=== PATIENT | female | born 1930 | race Caucasian/White ===

== ENCOUNTER 2019-03-15 12:42 | Inpatient (IN) | payer MEDICARE ==
[2019-03-15 13:41] LABS: ABS Basophils 0.1 10^3/ul (0-0.2); ABS Lymphocytes 0.4 10^3/ul (1.0-4.8); ABS Monocytes 0.3 10^3/ul (0-0.8); ABS Neutrophils 13.9 10^3/ul (1.5-7.7); Hematocrit 37 % (35-47); Hemoglobin 12.3 g/dL (12.0-16.0); Lymphocyte % 2.6 %; Mean Corpuscular HGB Conc 33 g/dL (31-36); Mean Corpuscular Hemoglobin 29 pg (27-31); Mean Corpuscular Volume 88 fL (80-97); Mean Platelet Volume 7.4 fL (7.4-10.4); Platelet Count 557 10^3/uL (150-450); Red Blood Count 4.24 10^6 /uL (3.70-4.87); Red Cell Distribution Width 14 % (10-15); White Blood Count 14.7 10^3/uL (3.5-10.8)
[2019-03-15 14:02] LABS: Albumin 4.1 g/dL (3.2-5.2); Albumin/Globulin Ratio 1.3 (1-3); Calcium 9.2 mg/dL (8.6-10.3); EGFR African American 77.8 (>60); EGFR Non-African American 64.3 (>60); Globulin 3.1 g/dL (2-4); Potassium 3.4 mmol/L (3.5-5.0); Total Bilirubin 0.4 mg/dL (0.2-1.0); Total Protein 7.2 g/dL (6.4-8.9)
--- NOTE | 2019-03-15 15:40 | ED ---
Abdominal Pain/Female - HPI Summary HPI Summary: Patient is a 88 y/o F presenting to [facility] with complaints of abdominal pain that onset last night. Patient reports that she was also nauseous, dry heaving and was producing "foamy stuff" from her mouth. No actual emesis is noted. She states that she has been having hyperactive bowel sounds as well. Last meal was supper last night, she had no breakfast. She reports some slight pain is present still but no nausea at present. Edema is denied. No PSHx is noted. On triage, pain is rated 7/10. Home medications and allergies are reviewed. - History of Current Complaint Chief Complaint: EDAbdPain Stated Complaint: LOW ABD PAIN STOMACH PAIN PER PT Time Seen by Provider: 03/15/19 15:25 Hx Obtained From: Patient Onset/Duration: Lasting Hours, Still Present Timing: Hours Severity Initially: Severe Severity Currently: Mild Pain Intensity: 7 Pain Scale Used: 0-10 Numeric Associated Signs and Symptoms: Positive: Nausea, Other: - dry heaving and was producing "foamy stuff" from her mouth, hyperactive bowel sounds, no edema. Negative: Vomiting Allergies/Adverse Reactions: Allergies Allergy/AdvReac Type Severity Reaction Status Date / Time doxycycline Allergy Nausea And Verified 03/15/19 12:49 Vomiting Home Medications: Home Medications Aspirin EC TAB* [Ecotrin EC Low Dose 81 MG*] 81 mg PO DAILY 03/15/19 [History Confirmed 03/15/19] Atorvastatin* [Lipitor*] 20 mg PO DAILY 03/15/19 [History Confirmed 03/15/19] Losartan/HCTZ 100/25 (NF) [Hyzaar 100/25 (NF)] 1 tab PO DAILY 03/15/19 [History Confirmed 03/15/19] Multivitamins/Minerals TAB* [Theragran/minerals TAB*] 1 tab PO DAILY 03/15/19 [ History Confirmed 03/15/19] PMH/Surg Hx/FS Hx/Imm Hx Endocrine/Hematology History: Denies: Hx Diabetes Cardiovascular History: Denies: Hx Hypertension History: Denies: Hx Renal Disease Musculoskeletal History: Reports: Hx Osteoporosis Infectious Disease History: No Infectious Disease History: Denies: Traveled Outside the [place] in Last 30 Days - Family History Known Family History: Negative: Diabetes - Social History Alcohol Use: Daily Substance Use Type: Reports: None Smoking Status (MU): Never Smoked Tobacco Review of Systems ENT: Other - producing "foamy stuff" from her mouth Gastrointestinal: Other - dry heaving and hyperactive bowel sounds Positive: Abdominal Pain, Nausea. Negative: Vomiting Negative: Edema All Other Systems Reviewed And Are Negative: Yes Physical Exam - Summary Physical Exam Summary: VITAL SIGNS: Reviewed. GENERAL: Patient is a well-developed and nourished female who is lying comfortable in the stretcher. Patient is not in any acute respiratory distress. HEAD AND FACE: No signs of trauma. No ecchymosis, hematomas or skull depressions. No sinus tenderness. EYES: PERRLA, EOMI x 2, No injected conjunctiva, no nystagmus. EARS: Hearing grossly intact. Ear canals and tympanic membranes are within normal limits. MOUTH: Oropharynx within normal limits. NECK: Supple, trachea is midline, no adenopathy, no JVD, no carotid bruit, no c- spine tenderness, neck with full ROM. CHEST: Symmetric, no tenderness at palpation. LUNGS: Clear to auscultation bilaterally. No wheezing or crackles. CVS: Regular rate and rhythm, S1 and S2 present, no murmurs or gallops appreciated. ABDOMEN: Soft, non-tender. Abdominal distention noted. No rebound, no guarding, and no masses palpated. Bowel sounds are hyperactive. EXTREMITIES: FROM in all major joints, no edema, no cyanosis or clubbing. NEURO: Alert and oriented x 3. No acute neurological deficits. Speech is normal and follows commands. SKIN: Dry and warm. Triage Information Reviewed: Yes Vital Signs On Initial Exam: Initial Vitals Temp Pulse Resp BP Pulse Ox 96.8 F 82 18 149/80 99 03/15/19 12:48 03/15/19 12:48 03/15/19 12:48 03/15/19 12:48 03/15/19 12:48 Vital Signs Reviewed: Yes Procedures - Sedation Patient Received Moderate/Deep Sedation with Procedure: No Diagnostics - Vital Signs Vital Signs Temp Pulse Resp BP Pulse Ox 03/15/19 14:36 98.6 F 101 17 130/67 97 03/15/19 12:48 96.8 F 82 18 149/80 99 - Laboratory Lab Results: Lab Results 03/15/19 03/15/19 03/15/19 Range/Units 13:30 13:30 13:30 WBC 14.7 H (3.5-10.8) 10^3/uL RBC 4.24 (3.70-4.87) 10^6 /uL Hgb 12.3 (12.0-16.0) g/dL Hct 37 (35-47) % MCV 88 (80-97) fL MCH 29 (27-31) pg MCHC 33 (31-36) g/dL RDW 14 (10-15) % Plt Count 557 H (150-450) 10^3/uL MPV 7.4 (7.4-10.4) fL Neut % (Auto) 94.7 % Lymph % (Auto) 2.6 % [place] % (Auto) 2.3 % Eos % (Auto) 0.0 % Baso % (Auto) 0.4 % Absolute Neuts (auto) 13.9 H (1.5-7.7) 10^3/ul Absolute Lymphs (auto) 0.4 L (1.0-4.8) 10^3/ul Absolute Monos (auto) 0.3 (0-0.8) 10^3/ul Absolute Eos (auto) 0.0 (0-0.6) 10^3/ul Absolute Basos (auto) 0.1 (0-0.2) 10^3/ul Absolute Nucleated RBC 0.0 10^3/ul Nucleated RBC % 0.0 Sodium 137 (135-145) mmol/L Potassium 3.4 L (3.5-5.0) mmol/L Chloride 100 L (101-111) mmol/L Carbon Dioxide 28 (22-32) mmol/L Anion Gap 9 (2-11) mmol/L BUN 21 (6-24) mg/dL Creatinine 0.84 (0.51-0.95) mg/dL Est GFR ( Amer) 77.8 (>60) Est GFR (Non-Af Amer) 64.3 (>60) BUN/Creatinine Ratio 25.0 H (8-20) Glucose 177 H (70-100) mg/dL Lactic Acid 1.2 (0.5-2.0) mmol/L Calcium 9.2 (8.6-10.3) mg/dL Total Bilirubin 0.40 (0.2-1.0) mg/dL AST 15 (13-39) U/L ALT 10 (7-52) U/L Alkaline Phosphatase 64 (34-104) U/L C-Reactive Protein 36.00 H (<8.01) mg/L Total Protein 7.2 (6.4-8.9) g/dL Albumin 4.1 (3.2-5.2) g/dL Globulin 3.1 (2-4) g/dL Albumin/Globulin Ratio 1.3 (1-3) Lipase 25 (11.0-82.0) U/L Result Diagrams: 03/17/19 06:24 03/17/19 06:24 Lab Statement: Any lab studies that have been ordered have been reviewed, and results considered in the medical decision making process. - Radiology abdomen x-ray Radiology Interpretation Completed By: Radiologist Summary of Radiographic Findings: ABDOMINAL X-RAY IMPRESSION: DIFFUSE GASEOUS DISTENTION AND DILATATION OF THE COLON. THE DIFFERENTIAL INCLUDE COLONIC. PSEUDOOBSTRUCTION VERSUS LOW COLONIC OBSTRUCTION. RECOMMEND CONSIDERATION OF CORRELATION. WITH CROSS-SECTIONAL IMAGING OF THE ABDOMEN. THIS REPORT WAS REVIEWED BY DR. CARMONA. - CT abd/pel ct CT Interpretation Completed By: Radiologist Summary of CT Findings: IMPRESSION: 1. Proximally the colon is dilated up to 8 cm and exhibits air-fluid levels. There appears. to be an ill-defined stenosis at the junction of the sigmoid colon and rectum but this is. poorly defined in the absence of oral contrast. The differential diagnosis includes. diverticulitis or possibly a malignant obstruction. 2. Rectosigmoid diverticulosis separate from the stenotic area described above. 3. Subcentimeter hypoattenuating foci in the liver that are unchanged when compared to the. February 24, 2019 CT examination. In the presence of a possible colonic malignancy, these. lesions should be regarded with suspicion. Further characterization on a nonemergent basis. could be made with ultrasound. 4. Calcified vasculopathy of the aortoiliac arteries. Please correlate to signs or. symptoms of pelvic and/or lower extremity arterial insufficiency. 5. Additional chronic and degenerative changes described in the body the report unlikely. to BE related to the patient's current clinical presentation. THIS REPORT WAS REVIEWED BY DR. CARMONA. Re-Evaluation - Re-Evaluation First Eval Re-Evaluation Time: 15:35 Comment: Patient reports that she had an ABD/PEL CT last week. X-ray to be obtained. Second Eval Re-Evaluation Time: 19:01 Comment: Results of imaging and tests were discussed with patient, she is agreeable to admission. Abdominal Pain Fem Course/Dx - Course Course Of Treatment: Patient is a 88 y/o F presenting to [facility] with complaints of abdominal pain that onset last night. Patient reports that she was also nauseous, dry heaving and was producing "foamy stuff" from her mouth. No actual emesis is noted. Last meal was supper last night, no breakfast. No significant pain at present is noted. She states that she has been having hyperactive bowel sounds. She reports some slight pain is present still but no nausea at present. No PSHx is noted. No edema is noted. Blood work without any significant abnormality, except for WBCs of 14.7, platelet count of 557, potassium level of 3.4, chloride 100, glucose 177, CRP of 36, and. Urinalysis is negative for UTI. Patient had a CT of the abdomen and pelvis: 02/24/19 which shows diverticulosis, fatty infiltration of the liver, atherosclerosis, large amount of stool throughout the colon. No acute pathology or the visualized abdomen or pelvis. Abdominal X ray IMPRESSION: DIFFUSE GASEOUS DISTENTION AND DILATATION OF THE COLON. THE DIFFERENTIAL INCLUDE COLONIC. PSEUDO OBSTRUCTION VERSUS LOW COLONIC OBSTRUCTION. RECOMMEND CONSIDERATION OF CORRELATION. WITH CROSS- SECTIONAL IMAGING OF THE ABDOMEN. The x-ray findings indicated the need for a CT of the abdomen and pelvis with by mouth and IV contrast. The patient refuses by mouth contrast. I offered the patient to get zofran for nausea vomiting however the patient refused. The CT was performed without by mouth contrast and the impression: 1. Proximally the colon is dilated up to 8 cm and exhibits air-fluid levels. There appears to be an ill-defined stenosis at the junction of the sigmoid colon and rectum but this is poorly defined in the absence of oral contrast. The differential diagnosis includes diverticulitis or possibly a malignant obstruction. 2. Rectosigmoid diverticulosis separate from the stenotic area described above. 3. Subcentimeter hypoattenuating foci in the liver that are unchanged when compared to the February 24, 2019 CT examination. In the presence of a possible colonic malignancy, these lesions should be regarded with suspicion. Further characterization on a nonemergent basis could be made with ultrasound. 4. Calcific vasculopathy of the aortoiliac arteries. Please correlate to signs or. symptoms of pelvic and/or lower extremity arterial insufficiency. 5. Additional chronic and degenerative changes described in the body the report unlikely to BE related to the patient' s current clinical presentation. At this time I discussed the findings of the CT which includes diverticulitis versus a malignancy with patient. Patient agrees to be admitted to the hospitalist. I gave the patient ciprofloxacin and Flagyl. Patient was offered Zofran and this time she accepted. The patient was given IV fluids. I discussed my physical exam and findings with Dr. Arguello from the hospital services who accepted the patient for admission. - Diagnoses Provider Diagnoses: Diverticulitis, Abnormal CT of the abdomen, Nausea & vomiting - Provider Notifications Discussed Care Of Patient With: Mayra Arguello Time Discussed With Above Provider: 18:48 Instructed by Provider To: Other - Patient's case was discussed with Dr. Arguello , Dr. Arguello accepts for admission. Discharge ED - Sign-Out/Discharge Documenting (check all that apply): Patient Departure - admit - Discharge Plan Condition: Stable Disposition: ADMITTED TO [facility] - Billing Disposition and Condition Condition: STABLE Disposition: Admitted to [facility] - Attestation Statements Document Initiated by Carey: Yes Documenting Scribe: JEAN CARLOS FERNANDEZ Provider For Whom Carey is Documenting (Include Credential): JUANA CARMONA MD Scribe Attestation: IJEAN CARLOS, scribed for JUANA CARMONA MD on 03/17/19 at 1353. Scribe Documentation Reviewed: Yes Provider Attestation: The documentation as recorded by the JEAN CARLOS sotelo accurately reflects the service I personally performed and the decisions made by , JUANA CARMONA MD Status of Scribe Document: Viewed
[2019-03-15 16:13] LABS: Urine Appearance Cloudy; Urine Bilirubin Negative (Negative); Urine Blood Negative (Negative); Urine Color Yellow; Urine Glucose Negative (Negative); Urine Ketones 1+ (Negative); Urine Nitrite Negative (Negative); Urine Protein Negative (Negative); Urine Specific Gravity 1.026 (1.010-1.030); Urine Urobilinogen Negative (Negative)
[2019-03-15] MEDS ORDERED: Iohexol 300* (CONTRAST) 10 ML SDV IV ONE (17:01)
[2019-03-15] MEDS ORDERED: metroNIDAZOLE TAB* 250 MG PO ONE (18:44)
[2019-03-15] MEDS ORDERED: Ciprofloxacin 400MG IVPREMIX(* 400 MG/200 ML BAG IVPB ONE (18:44)
[2019-03-15] MEDS ORDERED: Ondansetron INJ* 2 MG/ML VIAL IV ONE ×2 (18:45→22:58)
[2019-03-15] MEDS ORDERED: NS 0.9% 1000 ML** 1,000 ML IV ONE (19:05)
[2019-03-15] MEDS ORDERED: hydrALAZINE IV* 20 MG/ML VIAL IV SLOW PU PRN (19:22)
[2019-03-15] MEDS ORDERED: metroNIDAZOLE IV 500 MG/100ML* 500 MG/100 ML BAG IVPB ONE (19:43)
[2019-03-15] MEDS ORDERED: Enoxaparin(*) 40 MG/0.4 ML SYR SUBCUT SCH (20:00)
[2019-03-15] MEDS: Ondansetron INJ* 2 MG/ML VIAL IV PRN (21:11)
[2019-03-15] MEDS: NS 0.9% 1000 ML** 1,000 ML IV SCH (21:51)
[2019-03-15] MEDS: KCL 20 MEQ/100 ML IVPREMIX* 20 MEQ/100 ML BAG IV SCH (21:51)
--- NOTE | 2019-03-15 22:02 | HP ---
CC: Claudette Wright MD; Dr. Mahoney; Dr. Arzola; Dr. So * ADMISSION HISTORY AND PHYSICAL: DATE OF ADMISSION: 03/15/19 PRIMARY CARE PROVIDER: Claudette Wright MD ATTENDING FOR THIS ADMISSION: Mayra Arguello MD * (DICTATED BY ANGE PIERSON NP) CHIEF COMPLAINT: Abdominal pain and nausea. HISTORY OF PRESENT ILLNESS: This is a very pleasant 88-year-old female patient with minimal medical history including only hypertension and hyperlipidemia who presented to the emergency department today with complaints of abdominal pain. She states that she had had abdominal pain approximately less than a month ago for which she went to her primary care provider . She was sent for an outpatient CT scan which showed some constipation and some other nonspecific findings. She stated that shortly after having imaging, she had what she thought was an upper respiratory infection or virus. She had a sore throat and a cough and did not feel that her stomach issues were as pronounced and she did not seek any additional attention for her abdominal pain. However, over the last 24 hours, the patient states that her abdominal pain started again, increased overnight, was accompanied by nausea, but no vomiting, and profound anorexia. She said she felt that she was having some dry heaves but denied any fever or chills. She was able to tolerate a meal last night but was not able to eat breakfast today and she did have some diffuse abdominal pain. She came to the emergency department for evaluation as she felt that her symptoms were getting worse and was becoming concerned. In the emergency department, she did have an initial abdominal x-ray. The x-ray of the abdomen showed some distention and dilatation of colon. Differential diagnosis included colonic pseudoobstruction versus a low colonic obstruction and recommended a CT scan. A CT scan of the abdomen and pelvis was difficult because the patient was having trouble tolerating oral contrast because of her nausea, so it was a suboptimal study. The findings, however, as interpreted by Dr. Mahoney, showed proximal colon was dilated up to 8 cm and exhibited air-fluid levels. There was an ill-defined stenosis at the junction of the sigmoid colon and rectum which was poorly defined in the absence of oral contrast. Differential includes diverticulitis but possibly malignant obstruction. There was also a subcentimeter hypoattenuating foci in the liver that was unchanged compared to the 02/24 study; however, with the presence of the possible colonic malignancy lesions should be recorded with suspicion. Given the findings and the patient' s inability to have any p.o. intake, the hospitalists were requested for admitting the patient. PAST MEDICAL HISTORY: As stated above, only noted for hypertension and hyperlipidemia. PAST SURGICAL HISTORY: None. MEDICATIONS: 1. Multivitamin with minerals 1 tab p.o. daily. 2. Hyzaar 100/25 one tablet p.o. daily. 3. Aspirin 81 mg daily. 4. Lipitor 20 mg daily. ALLERGIES: The patient has allergy to DOXYCYCLINE. FAMILY HISTORY: The patient's mother had esophageal cancer, but also she notes that her mother had history of smoking. SOCIAL HISTORY: The patient does not smoke. She drinks a glass of wine with dinner. Her healthcare proxy is her daughter, Melva, who is present at the bedside. Her telephone number is [phone]. REVIEW OF SYSTEMS: A 10-point review of systems is otherwise negative except as noted in the HPI above. PHYSICAL EXAMINATION GENERAL: The patient is awake and alert and in no acute distress. VITAL SIGNS: Blood pressure 134/69, heart rate 90, respiratory rate 18, O2 saturation 96% on room air with a temperature of 98.6. HEENT: The patient is atraumatic, normocephalic. PERRLA, nonicteric sclerae. Oral mucosa is moist. Tongue is midline. NECK: Supple, nontender. No JVD noted. No thyromegaly appreciated. LUNGS: Clear bilaterally to auscultation with no wheezing, rhonchi, or rales. CARDIOVASCULAR: S1, S2 present. No murmurs, gallops, or rubs noted. Rate and rhythm are regular. ABDOMEN: Soft, nontender, nondistended. She has hypoactive bowel sounds noted. She is passing flatus. There is no hepatosplenomegaly appreciated. : Deferred. MUSCULOSKELETAL: There is no clubbing, no cyanosis, and no edema. She has +2 distal pulses palpable. Full range of motion. Gross motor and sensation are intact. NEUROLOGIC: She is grossly intact. Alert and oriented x3 with no focal deficits. PSYCHIATRIC: She is cooperative, pleasant, and appropriate. DIAGNOSTIC STUDIES/LAB DATA: WBCs 14.7, RBCs 4.24, hemoglobin 12.3, hematocrit 37, platelets 557. Sodium 137, potassium 3.4, chloride 100, CO2 28. BUN 21, creatinine 0.84, GFR 64.3, glucose 177, lactic acid 0.7, calcium 9.2. Bilirubin 0.40, AST 15, ALT 10, alk phos 64. CRP 36. Total protein 7.2, albumin 4.1, globulin 3.1, lipase 25. Urinalysis was negative for any acute infective process. Imaging: CAT scan of the abdomen as described in the body of this document above. IMPRESSION: Ms. Osorio is an 88-year-old female with minimal medical history , who presents to the emergency department today with abdominal pain, nausea, and leukocytosis, who is noted to have an abdominal obstruction versus pseudoobstruction versus possible infectious etiology, but also may potentially have a mass. Diagnoses: 1. Abdominal pain and nausea. The patient as noted above has had CT scan of the abdomen. I did discuss with the patient because she has not had oral contrast, we cannot fully elucidate the etiology of her pain and obstructive process. We did discuss that there is potential for a mass, but that we would discuss with GI who has already been consulted. Dr. Arzola is aware of the patient and actually Dr. So will be seeing the patient tomorrow morning. There is potential that she will have a flex sig tomorrow versus additional imaging. We will defer to GI on their recommendations. For now, the patient will have IV fluids. She has already been given Cipro 400 mg and Flagyl 500 mg. These will be continued. This has been confirmed with GI. Flagyl will be continued q.8 hours and Cipro q.24 hours. N.p.o. status will be maintained. For her nausea, Zofran q.4 hours will be provided as needed. 2. Hypokalemia. Her potassium is slightly suppressed. She has already received repletion. We will check labs in the morning. 3. Thrombocytosis. Her platelets are slightly elevated at 557. However, it does appear that her platelets have been elevated on 02/23/19 and 02/24/19 as well. We will continue to monitor her daily labs. It is unclear the etiology of her elevated platelets. However, given the constellation of findings and concern for malignancy, we will continue to monitor her CBC closely. 4. History of hypertension. The patient's blood pressure is currently stable. Given that she is n.p.o. right now, I have started her on hydralazine as needed with parameters for administration. Currently, her blood pressure is within normal range. 5. History of hyperlipidemia. We are holding her p.o. meds. Her statin will be restarted when she is no longer n.p.o. 6. For her DVT prophylaxis, the patient will be started on Lovenox 40 mg q.24 hours. She is high risk given her age. 7. Diet: N.p.o. as stated above. 8. Code status: We did have an extensive discussion about her code status. She is full code. She does not have a MOLST; however, she does have an advance directive. She wishes to retrieve her advance directive from home before updating the MOLST or making any other changes. For now, the patient remains full code until she receives her paperwork from home. Her daughter was present for discussion regarding her code status. She does wish to have all interventions available to her in the event of cardiac arrest. The rest of the patient's course will be determined by further diagnostics, laboratories, and any other input from other providers as warranted during this admission. TIME SPENT: Sixty-five minutes on admission planning, 50% of which was spent face- to-face with the patient and her daughter. This plan of care has been discussed with Dr. Arguello, the attending on this case and she is in agreement with the plan of care. ANGE PIERSON NP [id number]/[facility] #: [id number] ELIANA
[2019-03-15] MEDS: Ondansetron INJ* 2 MG/ML VIAL ONE ×2 (23:06→23:51)
[2019-03-16] MEDS: KCL 20 MEQ/100 ML IVPREMIX* 20 MEQ/100 ML BAG IV SCH (00:02)
[2019-03-16] MEDS: metroNIDAZOLE IV 500 MG/100ML* 500 MG/100 ML BAG IVPB SCH ×3 (03:40→22:13)
[2019-03-16 05:49] LABS: ABS Basophils 0.1 10^3/ul (0-0.2); ABS Lymphocytes 0.9 10^3/ul (1.0-4.8); ABS Neutrophils 10.2 10^3/ul (1.5-7.7); Eosinophil % 0.2 %; Hematocrit 32 % (35-47); Hemoglobin 10.7 g/dL (12.0-16.0); Lymphocyte % 7.8 %; Mean Corpuscular HGB Conc 34 g/dL (31-36); Mean Corpuscular Hemoglobin 30 pg (27-31); Mean Corpuscular Volume 88 fL (80-97); Mean Platelet Volume 7.5 fL (7.4-10.4); Platelet Count 477 10^3/uL (150-450); Red Cell Distribution Width 14 % (10-15); White Blood Count 12.2 10^3/uL (3.5-10.8)
[2019-03-16 06:12] LABS: BUN/Creatinine Ratio 24.7 (8-20); Calcium 8.2 mg/dL (8.6-10.3); EGFR Non-African American 71.1 (>60); Potassium 3.6 mmol/L (3.5-5.0)
[2019-03-16] MEDS: Ondansetron INJ* 2 MG/ML VIAL IV PRN ×2 (07:03→22:51)
[2019-03-16] MEDS: Ciprofloxacin 400MG IVPREMIX(* 400 MG/200 ML BAG IVPB SCH ×2 (07:03→20:14)
[2019-03-16] MEDS ORDERED: Influenza VAC *QUAD* 2019-20* 0.5 ML SYRINGE IM ONE (09:00)
[2019-03-16] MEDS ORDERED: Midazolam* 1 MG/ML 10 ML VIAL (10 MG) ONE (10:38)
[2019-03-16] MEDS ORDERED: fentaNYL* 50 MCG/ML 2 ML VIAL (100 MCG VIAL) ONE (10:38)
--- NOTE | 2019-03-16 12:59 | PN ---
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 Leoncio So DO 03/16/19
--- NOTE | 2019-03-16 15:29 | PN ---
Subjective Date of Service: 03/16/19 Interval History: Patient is feeling well except for some RLQ pain which is consistent from before sigmoidoscopy. Patient still feels bloated. Patient denies dizziness, CP , SOB, dysuria, or other pain. Family History: Unchanged from Admission Social History: Unchanged from Admission Past Medical History: Unchanged from Admission Objective Active Medications: Enoxaparin Sodium (Lovenox(*)) 40 mg SUBCUT Q24H BRUCE Last Admin: 03/15/19 21:55 Dose: 40 mg Hydralazine HCl (Apresoline Iv*) 5 mg IV SLOW PU Q6H PRN PRN Reason: SBP >165 DBP >90 Metronidazole/Sodium Chloride (Flagyl 500 Mg Ivpb*) 500 mg in 100 mls @ 100 mls /hr IVPB Q8H BRUCE Last Admin: 03/16/19 13:06 Dose: 100 mls/hr Ciprofloxacin/Dextrose (Cipro 400 Mg Ivpremix(*)) 400 mg in 200 mls @ 200 mls/ hr IVPB Q12H BRUCE; Protocol Last Admin: 03/16/19 07:03 Dose: 200 mls/hr Sodium Chloride (Ns 0.9% 1000 Ml) 1,000 mls @ 75 mls/hr IV PER RATE BRUCE Last Admin: 03/15/19 21:51 Dose: 75 mls/hr Ondansetron HCl (Zofran Inj*) 4 mg IV Q4H PRN PRN Reason: NAUSEA/VOMITING Last Admin: 03/16/19 07:03 Dose: 4 mg Vital Signs - 8 hr 03/16/19 07:26 Temperature 98.3 F Pulse Rate 83 Respiratory 18 Rate Blood Pressure 123/60 (mmHg) O2 Sat by Pulse 97 Oximetry Oxygen Devices in Use Now: None Appearance: Patient is an 88yo female who appears younger than stated age. Eyes: No Scleral Icterus, PERRLA Ears/Nose/Mouth/Throat: NL Teeth, Lips, Gums, Clear Oropharnyx, Mucous Membranes Moist Neck: NL Appearance and Movements; NL JVP, Trachea Midline Respiratory: Symmetrical Chest Expansion and Respiratory Effort, Clear to Auscultation Cardiovascular: NL Sounds; No Murmurs; No JVD, RRR, No Edema Abdominal: No Hepatosplenomegaly, - - Distention, hypertympanic to percussion. Lymphatic: No Cervical Adenopathy Extremities: No Edema, No Clubbing, Cyanosis Skin: No Rash or Ulcers, No Nodules or Sclerosis Neurological: Alert and Oriented x 3, NL Sensation, NL Muscle Strength and Tone , - - CN II-XII intact. Result Diagrams: 03/16/19 05:13 03/16/19 05:13 Additional Lab and Data: Lab Results 03/15/19 03/15/19 03/15/19 Range/Units 13:30 13:30 13:30 WBC 14.7 H (3.5-10.8) 10^3/uL RBC 4.24 (3.70-4.87) 10^6 /uL Hgb 12.3 (12.0-16.0) g/dL Hct 37 (35-47) % MCV 88 (80-97) fL MCH 29 (27-31) pg MCHC 33 (31-36) g/dL RDW 14 (10-15) % Plt Count 557 H (150-450) 10^3/uL MPV 7.4 (7.4-10.4) fL Neut % (Auto) 94.7 % Lymph % (Auto) 2.6 % [place] % (Auto) 2.3 % Eos % (Auto) 0.0 % Baso % (Auto) 0.4 % Absolute Neuts (auto) 13.9 H (1.5-7.7) 10^3/ul Absolute Lymphs (auto) 0.4 L (1.0-4.8) 10^3/ul Absolute Monos (auto) 0.3 (0-0.8) 10^3/ul Absolute Eos (auto) 0.0 (0-0.6) 10^3/ul Absolute Basos (auto) 0.1 (0-0.2) 10^3/ul Absolute Nucleated RBC 0.0 10^3/ul Nucleated RBC % 0.0 Sodium 137 (135-145) mmol/L Potassium 3.4 L (3.5-5.0) mmol/L Chloride 100 L (101-111) mmol/L Carbon Dioxide 28 (22-32) mmol/L Anion Gap 9 (2-11) mmol/L BUN 21 (6-24) mg/dL Creatinine 0.84 (0.51-0.95) mg/dL Est GFR ( Amer) 77.8 (>60) Est GFR (Non-Af Amer) 64.3 (>60) BUN/Creatinine Ratio 25.0 H (8-20) Glucose 177 H (70-100) mg/dL Lactic Acid 1.2 (0.5-2.0) mmol/L Calcium 9.2 (8.6-10.3) mg/dL Total Bilirubin 0.40 (0.2-1.0) mg/dL AST 15 (13-39) U/L ALT 10 (7-52) U/L Alkaline Phosphatase 64 (34-104) U/L C-Reactive Protein 36.00 H (<8.01) mg/L Total Protein 7.2 (6.4-8.9) g/dL Albumin 4.1 (3.2-5.2) g/dL Globulin 3.1 (2-4) g/dL Albumin/Globulin Ratio 1.3 (1-3) Lipase 25 (11.0-82.0) U/L Assess/Plan/Problems-Billing Assessment: Patient is an 88yo female with a PMH for HTN, HLD, here with large bowel obstruction with mass and high likelihood of malignancy who is being evaluated by surgery. - Patient Problems (1) Intestinal mass Current Visit: Yes Status: Acute Code(s): K63.89 - OTHER SPECIFIED DISEASES OF INTESTINE SNOMED Code(s): 20961235 Comment: - Large bowel mass, fully obstructing on sigmoidoscopy. - High concern for malignancy - Questionable liver mets, pending pathology of primary mass. - Appreciate GI input and Surgery input - Oncology consult pending pathology. - Full liquid diet, no obstipation, will need surgery with likely colostomy. - Continue antibiotics - RCRI is 0, indicating a 3.9% risk of MACE at 3 Months. Patient has excellent functional status, being able to walk up a flight of stairs without getting short of breath. Patient has >4 Mets and is medically optimized at this time for bowel resection if this ends up being the treatment plan. (2) HTN (hypertension) Current Visit: Yes Status: Acute Code(s): I10 - ESSENTIAL (PRIMARY) HYPERTENSION SNOMED Code(s): 16020237 Comment: - Hold Losartan/HCTZ - Normotensive - Hydralazine PRN. (3) HLD (hyperlipidemia) Current Visit: Yes Status: Acute Code(s): E78.5 - HYPERLIPIDEMIA, UNSPECIFIED SNOMED Code(s): 41639943 Comment: - Hold lipitor at this time. (4) DVT prophylaxis Current Visit: Yes Status: Acute Code(s): Z29.9 - ENCOUNTER FOR PROPHYLACTIC MEASURES, UNSPECIFIED SNOMED Code(s): 893364837 Comment: - Hold lovenox at this time, SCDs (5) Full code status Current Visit: Yes Status: Acute Code(s): Z78.9 - OTHER SPECIFIED HEALTH STATUS SNOMED Code(s): 037494484 Status and Disposition: Inpatient for evaluation of options for intestinal mass.
--- NOTE | 2019-03-16 16:31 | CONS ---
CC: Dr. Claudette Wright * CONSULTATION REPORT: DATE OF CONSULT: 03/16/19 REQUESTING PROVIDER: TAMMY Sanchez REASON FOR CONSULT: Abdominal pain, abnormal CT. HISTORY OF PRESENT ILLNESS: This is a very pleasant 88-year-old female with a past medical history of hypertension, hyperlipidemia, who presented with a few weeks' worth of abdominal pain. The pain has been in the right upper quadrant and left lower quadrant, fleeting in nature, worse when not moving bowels, better when bowels are moved. She has noticed a change in her bowel caliber over the last 2 to 3 weeks with much thinner and pencil-like stools. She has also noted an unintentional weight loss of about 10 pounds over the last month. Her appetite has been on the poor side and has had some nausea, but no emesis. She denies any gross black or blood in the stool. She had an outpatient CT scan, with the report not available to me, a few weeks ago, which apparently showed some constipation. She then presented to the emergency room again with worsening of abdominal pain on 03/15/19 and was found to have a possible colonic obstruction at the rectosigmoid area, concern for mass versus diverticular versus other. The proximal colon was dilated up to 8 cm with air- fluid levels. She has never had a colonoscopy in the past. She has never had an upper endoscopy. In addition, on the CT scan, there were a few subcentimeter hypoattenuating foci in the liver. The remainder of the 14-point review of systems is grossly negative. PAST MEDICAL HISTORY: Hypertension, hyperlipidemia. PAST SURGICAL HISTORY: None. HOME MEDICATIONS: Include: 1. Multivitamin. 2. Hyzaar. 3. Aspirin. 4. Lipitor. ALLERGIES: Include DOXYCYCLINE. FAMILY HISTORY: No family history of colorectal cancer, but her mom had esophageal cancer. SOCIAL HISTORY: A glass of wine with dinner. No tobacco. Healthcare proxy is daughter, Melva. REVIEW OF SYSTEMS: Remainder of the 14-point review of systems is grossly negative. PHYSICAL EXAM: Vital Signs: Blood pressure 123/60, pulse 83, respiratory rate 18, temperature 98.3, she is 97% on room air. In general, alert and oriented x3. HEENT: Atraumatic, normocephalic. Pupils equal, round, reactive to light. Extraocular movements are intact. Conjunctivae are pink. Sclerae are anicteric. Cardiovascular: Regular rate and rhythm. S1, S2. Respiratory: Clear to auscultation bilaterally. Abdomen: Soft, distended. Bowel sounds positive. Mild tenderness to palpation in the right and left lower quadrants. No guarding or rebound. Extremities: No clubbing, no cyanosis, no edema. DIAGNOSTIC STUDIES/LAB DATA: Hemoglobin 10.7, WBC count 12.2, platelet count 477. Sodium 138, potassium 3.6, chloride 107, BUN is 19, creatinine 0.77, glucose 115, calcium 8.2. CRP is 36. AST is 15, ALT is 10, alkaline phosphatase is 64. She had a CT of the abdomen and pelvis on 03/15/19. This revealed: 1. Dilated colon in the proximal portion up to 8 cm with the transition point appeared to be at the junction of the sigmoid colon and rectum. 2. Rectosigmoid diverticulosis and multiple subcentimeter hypoattenuating foci in the liver. ASSESSMENT AND PLAN: This is an 88-year-old female with possible colonic obstruction. 1. Colonic obstruction. Appears to be a rectosigmoid transition. Without a fever and very mild leukocytosis, doubt this is diverticulitis causing the obstruction. She has never had a colonoscopy. I discussed the risks, benefits, and alternatives with the patient and she would like to proceed with flexible sigmoidoscopy to evaluate. If evidence of distinct inflammation and erythema, we would abort the procedure and continue on IV antibiotics. I feel that it is paramount to rule out a mass in the area causing this obstruction. She is agreeable to proceeding. 2. Anemia, normocytic. Recommend iron studies. 3. Weight loss, unintentional. Further workup pending. 4. Abnormal CT. Per #1. 5. Hypoattenuating lesions within the liver suspicious for potential metastasis. [id number]/[facility] #: [id number] MTDD
[2019-03-16] MEDS ORDERED: PEG 3000 GI LAVAGE* 1 GALLON PO ONE (17:28)
--- NOTE | 2019-03-16 18:51 | CONS ---
SURGICAL CONSULTATION REPORT: ADDENDUM: Obstructing sigmoid lesion at 17 cm from the anal verge. When I saw the patient, she is with children, resting comfortably on her hospital bed. She is complaining of mild right lower quadrant pain. No nausea. She is thirsty. She is somewhat hungry, but afraid to eat. She is not nauseous. She is passing flatus and had a very small bowel movement. PAST MEDICAL HISTORY: Hypertension, hypercholesterolemia. PAST SURGICAL HISTORY: No past surgical history. MEDICATIONS: List reviewed. ALLERGIES: She is allergic to DOXYCYCLINE. FAMILY HISTORY: Mother of esophageal cancer. Father of heart disease. SOCIAL HISTORY: She does not smoke. She lives alone. She takes care of herself. Nonsmoker. REVIEW OF SYSTEMS: No fevers or chills. No shortness of breath or chest pain. No cardiac disease. Abdominal pain and nausea as described. No history of GERD. No dysuria. The patient has never had a colonoscopy. No endocrine disorders. No bleeding or clotting disorders. PHYSICAL EXAM: She is afebrile. Vital signs are stable. She is alert and oriented x3, in no apparent distress. Head, Ears, Eyes, Nose, and Throat: Normocephalic, atraumatic. Sclerae anicteric. Mucous membranes are moist. Neck: No lymphadenopathy. Abdomen is soft, distended, tender only on deep palpation on the right side, tympanitic right side consistent with bowel distention, atympanic elsewhere, nontender with no hernias or masses. Rectal exam with bloody appearing stool. Guaiac is pending. No masses were palpated. DIAGNOSTIC STUDIES/LAB DATA: Labs show white count of 12.2, H and H 11/32. Chemistry panel reviewed. CA is 42, which is elevated, reference range is less than 5. CAT scan reviewed. Cecum appears close to 9 cm in size. There is no free fluid , no free air. There appeared to be an ill-defined stenosis of the rectosigmoid junction. This was a non-oral contrast study. The patient did not receive oral contrast or a bowel prep since presenting to the hospital. 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 The patient is passing flatus and is hemodynamically stable. Plan is for IV fluids, sips of GoLYTELY, and x-ray in the morning with reevaluation. The patient is on a tentative schedule tomorrow for a partial colectomy and colostomy with the anticipation of possibly postponing this and continuing with a potential bowel prep to avoid colostomy creation, although this is very likely at this point. I discussed this with the family. We went over the risks, benefits, and alternatives of surgical intervention, stating that this is presenting as a likely colon cancer with pathology pending and it still warrants surgical intervention regardless. I did not discuss the possibility of metastatic disease nor do I feel it matters at this time, but certainly as we are closer to operative intervention, this will be discussed. [id number]/[facility] #: [id number] ELIANA
--- NOTE | 2019-03-16 20:12 | CONS ---
CONTINUATION ADDENDUM NOW INCLUDED ON THIS EXAM CC: Dr. Claudette Wright; Dr. Leoncio So * SURGICAL CONSULTATION REPORT: DATE OF CONSULT: 03/16/19 HISTORY OF PRESENT ILLNESS: I was contacted by the gastroenterology group regarding Ms. Osorio, an 88-year-old female who was admitted to the hospital last night with complaints of abdominal pain, nausea, and vomiting and was noted to have a dilated colon and concern for a sigmoid lesion. She was admitted and underwent colonoscopy earlier today, where she had a notable obstructing lesion in the sigmoid colon approximately 17 cm from anal verge. CONTINUATION ADDENDUM: When I saw the patient, she is with children, resting comfortably on her hospital bed. She is complaining of mild right lower quadrant pain. No nausea. She is thirsty. She is somewhat hungry, but afraid to eat. She is not nauseous. She is passing flatus and had a very small bowel movement. PAST MEDICAL HISTORY: Hypertension, hypercholesterolemia. PAST SURGICAL HISTORY: No past surgical history. MEDICATIONS: List reviewed. ALLERGIES: She is allergic to DOXYCYCLINE. FAMILY HISTORY: Mother of esophageal cancer. Father of heart disease. SOCIAL HISTORY: She does not smoke. She lives alone. She takes care of herself. Nonsmoker. REVIEW OF SYSTEMS: No fevers or chills. No shortness of breath or chest pain. No cardiac disease. Abdominal pain and nausea as described. No history of GERD. No dysuria. The patient has never had a colonoscopy. No endocrine disorders. No bleeding or clotting disorders. PHYSICAL EXAM: She is afebrile. Vital signs are stable. She is alert and oriented x3, in no apparent distress. Head, Ears, Eyes, Nose, and Throat: Normocephalic, atraumatic. Sclerae anicteric. Mucous membranes are moist. Neck: No lymphadenopathy. Abdomen is soft, distended, tender only on deep palpation on the right side, tympanitic right side consistent with bowel distention, atympanic elsewhere, nontender with no hernias or masses. Rectal exam with bloody appearing stool. Guaiac is pending. No masses were palpated. DIAGNOSTIC STUDIES/LAB DATA: Labs show white count of 12.2, H and H 11/32. Chemistry panel reviewed. CA is 42, which is elevated, reference range is less than 5. CAT scan reviewed. Cecum appears close to 9 cm in size. There is no free fluid , no free air. There appeared to be an ill-defined stenosis of the rectosigmoid junction. This was a non-oral contrast study. The patient did not receive oral contrast or a bowel prep since presenting to the hospital. 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 The patient is passing flatus and is hemodynamically stable. Plan is for IV fluids, sips of GoLYTELY, and x-ray in the morning with reevaluation. The patient is on a tentative schedule tomorrow for a partial colectomy and colostomy with the anticipation of possibly postponing this and continuing with a potential bowel prep to avoid colostomy creation, although this is very likely at this point. I discussed this with the family. We went over the risks, benefits, and alternatives of surgical intervention, stating that this is presenting as a likely colon cancer with pathology pending and it still warrants surgical intervention regardless. I did not discuss the possibility of metastatic disease nor do I feel it matters at this time, but certainly as we are closer to operative intervention, this will be discussed. [id number]/[facility] #: [id number] A- [id number]/[facility] #: [id number] ELIANA
[2019-03-16] MEDS: NS 0.9% 1000 ML** 1,000 ML IV SCH (20:14)
--- NOTE | 2019-03-16 21:44 | PRO ---
CC: Dr. Claudette Wright * FLEXIBLE SIGMOIDOSCOPY REPORT: DATE OF PROCEDURE: 03/16/19 PRIMARY CARE PHYSICIAN: Claudette Wright MD INDICATION FOR PROCEDURE: Colonic obstruction, rule out mass. PROCEDURE PERFORMED: Flexible sigmoidoscopy to 17 cm. MEDICATION GIVEN: Include: 1. 5 mg IV midazolam. 2. 25 mcg IV fentanyl. DESCRIPTION OF PROCEDURE: After the flexible sigmoidoscopy procedure, including the risks, benefits, and alternatives, the risks not limited to perforation, surgery, missed lesions, and/or were explained to the patient , written informed consent was obtained, IV medication was given, and a rectal exam was performed. The rectal exam was unremarkable. The adult Olympus colonoscope was then inserted into the patient's rectum and advanced to 17 cm. At 17 cm, a near fully obstructing mass was encountered that was friable and irregular in shape. I was unable to pass the scope despite full water irrigation and multiple attempts. I took extensive biopsies of the lesion. On return to the rectum, direct views were normal. On retroflexion, the views were normal as well. The scope was then removed from the patient. She tolerated the procedure well. She returned to the recovery room in stable condition. The preparation was good of the area visualized. IMPRESSION: 1. Obstructing colon mass at 17 cm. 2. Good prep. RECOMMENDATIONS: Surgical consult. I suspect that this is likely carcinoma obstructing. We will order a CEA level. This raises greater suspicion to the multiple hypoattenuating lesions within the liver. [id number]/[facility] #: [id number] MTDD
[2019-03-17] MEDS: metroNIDAZOLE IV 500 MG/100ML* 500 MG/100 ML BAG IVPB SCH ×2 (05:52→12:07)
[2019-03-17] MEDS: NS 0.9% 1000 ML** 1,000 ML IV SCH ×2 (05:55→21:37)
[2019-03-17 06:41] LABS: ABS Basophils 0.1 10^3/ul (0-0.2); ABS Eosinophils 0.1 10^3/ul (0-0.6); ABS Monocytes 0.7 10^3/ul (0-0.8); ABS Neutrophils 6.4 10^3/ul (1.5-7.7); Eosinophil % 1.2 %; Hematocrit 32 % (35-47); Hemoglobin 10.6 g/dL (12.0-16.0); Lymphocyte % 12.1 %; Mean Corpuscular HGB Conc 34 g/dL (31-36); Mean Corpuscular Hemoglobin 30 pg (27-31); Mean Corpuscular Volume 89 fL (80-97); Mean Platelet Volume 7.2 fL (7.4-10.4); Platelet Count 438 10^3/uL (150-450); Red Blood Count 3.57 10^6 /uL (3.70-4.87); Red Cell Distribution Width 14 % (10-15); White Blood Count 8.3 10^3/uL (3.5-10.8)
[2019-03-17 07:01] LABS: BUN/Creatinine Ratio 15.8 (8-20); Calcium 8.2 mg/dL (8.6-10.3); EGFR African American 87.3 (>60); EGFR Non-African American 72.2 (>60); Magnesium 1.8 mg/dL (1.9-2.7)
[2019-03-17] MEDS: Ciprofloxacin 400MG IVPREMIX(* 400 MG/200 ML BAG IVPB SCH (08:16)
[2019-03-17] MEDS ORDERED: Magnesium Sulfate 1 GM IV* 1 GM/100 ML BAG IV ONE (10:10)
[2019-03-17] MEDS ORDERED: Buffered Lidocaine 1% SYRIN* 1 ML/SYRINGE INTRADERM ONE (13:15)
[2019-03-17] MEDS ORDERED: Midazolam* 1 MG/ML 2 ML VIAL (2 MG) ONE (13:22)
[2019-03-17] MEDS ORDERED: fentaNYL* 50 MCG/ML 2 ML VIAL (100 MCG VIAL) ONE (13:23)
[2019-03-17] MEDS ORDERED: Propofol* 10 MG/ML 20 ML BTL ONE (13:27)
[2019-03-17] MEDS ORDERED: Succinylcholine* 20 MG/ML 10 ML VIAL ONE (13:27)
[2019-03-17] MEDS ORDERED: Lidocaine 2% PF * 5 ML VIAL ONE (13:27)
--- NOTE | 2019-03-17 13:31 | PN ---
Subjective Date of Service: 03/17/19 Interval History: Patient is feeling better with regards to her abdominal pain. Patient denies any F/C, N/V, CP, SOB, dizziness, or other pain. Patient is passing a small amount of gas still. Discussed surgery with patient and family at length. Family History: Unchanged from Admission Social History: Unchanged from Admission Past Medical History: Unchanged from Admission Objective Active Medications: Hydralazine HCl (Apresoline Iv*) 5 mg IV SLOW PU Q6H PRN PRN Reason: SBP >165 DBP >90 Metronidazole/Sodium Chloride (Flagyl 500 Mg Ivpb*) 500 mg in 100 mls @ 100 mls /hr IVPB Q8H BRUCE Last Admin: 03/17/19 12:07 Dose: 100 mls/hr Ciprofloxacin/Dextrose (Cipro 400 Mg Ivpremix(*)) 400 mg in 200 mls @ 200 mls/ hr IVPB Q12H BRUCE; Protocol Last Admin: 03/17/19 08:16 Dose: 200 mls/hr Sodium Chloride (Ns 0.9% 1000 Ml) 1,000 mls @ 75 mls/hr IV PER RATE BRUCE Last Admin: 03/17/19 05:55 Dose: 75 mls/hr Lactated Ringer's (Lactated Ringers 1000 Ml Bag*) 1,000 mls @ 125 mls/hr IV PER RATE BRUCE Ondansetron HCl (Zofran Inj*) 4 mg IV Q4H PRN PRN Reason: NAUSEA/VOMITING Last Admin: 03/16/19 22:51 Dose: 4 mg Vital Signs - 8 hr 03/17/19 03/17/19 03/17/19 07:15 10:10 11:15 Temperature 98.2 F 97.4 F Pulse Rate 73 99 Respiratory 16 18 16 Rate Blood Pressure 105/51 148/76 (mmHg) O2 Sat by Pulse 97 100 Oximetry Oxygen Devices in Use Now: None Appearance: Patient is an 88yo female who appears stated age and is sitting in the bed in NAD. Eyes: No Scleral Icterus, PERRLA Ears/Nose/Mouth/Throat: NL Teeth, Lips, Gums, Clear Oropharnyx, Mucous Membranes Moist Neck: NL Appearance and Movements; NL JVP, Trachea Midline Respiratory: Symmetrical Chest Expansion and Respiratory Effort, Clear to Auscultation Cardiovascular: NL Sounds; No Murmurs; No JVD, RRR, No Edema Abdominal: No Hepatosplenomegaly, - - Distended, Non-Tender, Lymphatic: No Cervical Adenopathy Extremities: No Edema, No Clubbing, Cyanosis Skin: No Rash or Ulcers, No Nodules or Sclerosis Neurological: Alert and Oriented x 3, NL Sensation, NL Muscle Strength and Tone , - - CN II-XII intact. Result Diagrams: 03/17/19 06:24 03/17/19 06:24 Additional Lab and Data: Lab Results 03/15/19 03/15/19 03/15/19 Range/Units 13:30 13:30 13:30 WBC 14.7 H (3.5-10.8) 10^3/uL RBC 4.24 (3.70-4.87) 10^6 /uL Hgb 12.3 (12.0-16.0) g/dL Hct 37 (35-47) % MCV 88 (80-97) fL MCH 29 (27-31) pg MCHC 33 (31-36) g/dL RDW 14 (10-15) % Plt Count 557 H (150-450) 10^3/uL MPV 7.4 (7.4-10.4) fL Neut % (Auto) 94.7 % Lymph % (Auto) 2.6 % [place] % (Auto) 2.3 % Eos % (Auto) 0.0 % Baso % (Auto) 0.4 % Absolute Neuts (auto) 13.9 H (1.5-7.7) 10^3/ul Absolute Lymphs (auto) 0.4 L (1.0-4.8) 10^3/ul Absolute Monos (auto) 0.3 (0-0.8) 10^3/ul Absolute Eos (auto) 0.0 (0-0.6) 10^3/ul Absolute Basos (auto) 0.1 (0-0.2) 10^3/ul Absolute Nucleated RBC 0.0 10^3/ul Nucleated RBC % 0.0 Sodium 137 (135-145) mmol/L Potassium 3.4 L (3.5-5.0) mmol/L Chloride 100 L (101-111) mmol/L Carbon Dioxide 28 (22-32) mmol/L Anion Gap 9 (2-11) mmol/L BUN 21 (6-24) mg/dL Creatinine 0.84 (0.51-0.95) mg/dL Est GFR ( Amer) 77.8 (>60) Est GFR (Non-Af Amer) 64.3 (>60) BUN/Creatinine Ratio 25.0 H (8-20) Glucose 177 H (70-100) mg/dL Lactic Acid 1.2 (0.5-2.0) mmol/L Calcium 9.2 (8.6-10.3) mg/dL Total Bilirubin 0.40 (0.2-1.0) mg/dL AST 15 (13-39) U/L ALT 10 (7-52) U/L Alkaline Phosphatase 64 (34-104) U/L C-Reactive Protein 36.00 H (<8.01) mg/L Total Protein 7.2 (6.4-8.9) g/dL Albumin 4.1 (3.2-5.2) g/dL Globulin 3.1 (2-4) g/dL Albumin/Globulin Ratio 1.3 (1-3) Lipase 25 (11.0-82.0) U/L Assess/Plan/Problems-Billing Assessment: Patient is an 88yo female with a PMH for HTN, HLD, here with large bowel obstruction with mass and high likelihood of malignancy who is being evaluated by surgery. - Patient Problems (1) Intestinal mass Current Visit: Yes Status: Acute Code(s): K63.89 - OTHER SPECIFIED DISEASES OF INTESTINE SNOMED Code(s): 16906084 Comment: - Large bowel mass, fully obstructing on sigmoidoscopy. - High concern for malignancy, Pathology shows invasive adenocarcinoma. - Questionable liver mets, pending pathology of primary mass. - Will need CT of chest to look for Mets after surgery today. - Appreciate GI input and Surgery input - Oncology consult likely tomorrow. - NPO after midnight. - Continue antibiotics - RCRI is 0, indicating a 3.9% risk of MACE at 3 Months. Patient has excellent functional status, being able to walk up a flight of stairs without getting short of breath. Patient has >4 Mets and is medically optimized at this time for bowel resection. (2) HTN (hypertension) Current Visit: Yes Status: Acute Code(s): I10 - ESSENTIAL (PRIMARY) HYPERTENSION SNOMED Code(s): 77312579 Comment: - Hold Losartan/HCTZ - Normotensive - Hydralazine PRN. (3) HLD (hyperlipidemia) Current Visit: Yes Status: Acute Code(s): E78.5 - HYPERLIPIDEMIA, UNSPECIFIED SNOMED Code(s): 02955447 Comment: - Hold lipitor at this time. (4) DVT prophylaxis Current Visit: Yes Status: Acute Code(s): Z29.9 - ENCOUNTER FOR PROPHYLACTIC MEASURES, UNSPECIFIED SNOMED Code(s): 733747158 Comment: - Hold lovenox at this time, SCDs (5) Full code status Current Visit: Yes Status: Acute Code(s): Z78.9 - OTHER SPECIFIED HEALTH STATUS SNOMED Code(s): 456839948 Status and Disposition: Inpatient for evaluation of options for intestinal mass.
[2019-03-17] MEDS ORDERED: Bupivacaine 0.5%* 50 ML MDV VIAL ONE (13:41)
--- NOTE | 2019-03-17 13:57 | PN ---
Progress Note - Progress Note Date of Service: 03/17/19 SOAP: Subjective: Pt seen and examined earlier today. Limited golytely overnight with symptoms of nausea, gerd. no vomiting. some latus, mucous BM- yellow to brown. Pt comfortable Objective: Temp Pulse Resp BP Pulse Ox 97.4 F 99 16 148/76 100 03/17/19 11:15 03/17/19 11:15 03/17/19 11:15 03/17/19 11:15 03/17/19 11:15 a and o x3, nad abdo: soft/ distended, but less so, nontender, tympanic axr reviewed labs reviewed path c/w adenocarcinoma Assessment: LBO 2ary to adenoCa Plan: OR for exploratory laparotomy, partial colectomy, possible colostomy R/B/A discussed with pt and family at length. I feel the benefit of waiting for bowel prep doesn't warrant the risk of proximal perforation. No stents available. Urgent OR for above procedure. Lithotomy position Bates in [place] Epidural catheter ertapenem pre op
[2019-03-17] MEDS ORDERED: Lactated Ringers 1000 ML Bag* 1,000 ML IV SCH (14:00)
[2019-03-17] MEDS ORDERED: Ertapenem* 1 GM in NS 0.9% 50 ML* 50 ML IVPB ONE (14:00)
[2019-03-17] MEDS ORDERED: Midazolam* 1 MG/ML 5 ML VIAL (5 MG) ONE (14:49)
[2019-03-17] MEDS ORDERED: Lidocaine 1% INJ* 10 MG/ML 30 ML SDV ONE (15:07)
[2019-03-17] MEDS ORDERED: Rocuronium* 10 MG/ML VIAL ONE (15:41)
[2019-03-17] MEDS ORDERED: Phenylephrine 10 MG/ML VIAL* 1 ML VIAL ONE (15:42)
[2019-03-17] MEDS ORDERED: Ketorolac INJ* 30 MG/ML 1 ML VIAL ONE (16:07)
[2019-03-17] MEDS ORDERED: Dexamethasone IV* 4 MG/ML 1 ML (4 MG) ONE (16:07)
[2019-03-17] MEDS ORDERED: Ondansetron INJ* 2 MG/ML VIAL ONE (16:07)
[2019-03-17] MEDS ORDERED: Naloxone* 0.4 MG/ML 1 ML VIAL IV PRN ×2 (16:16→16:29)
[2019-03-17] MEDS ORDERED: HYDROmorphone INJ1* 1 MG/ML SYRINGE IV SLOW PU PRN (16:26)
[2019-03-17] MEDS ORDERED: Metoclopramide IV* 5 MG/ML 2 ML VIAL IV PRN (16:29)
[2019-03-17] MEDS ORDERED: HYDROmorphone INJ1* 1 MG/ML SYRINGE IV PRN (16:29)
[2019-03-17] MEDS ORDERED: Ropivacaine* 300 MG in NS 0.9% 250 ML* 240 ML EPIDURAL SCH (17:00)
[2019-03-17] MEDS ORDERED: OBEPIDURAL* 250 ML EPIDURAL SCH (18:00)
[2019-03-17] MEDS ORDERED: Acetaminophen IV 1GM/100ML * 100 ML ONE (18:39)
--- NOTE | 2019-03-17 19:12 | BRIEFOPN ---
Brief Operative/Procedure Note - Operation Details Pre-Op Diagnosis: LBO; colon cancer Post-Op Diagnosis: same Procedures: LOW ANTERIOR RESECTION; SUTURE REPAIR OF CECUM; LOOP ILEOSTOMY Surgeon(s)/Proceduralists: SURG: TAMEKA. ASSIST: TAMMY SANDHU Anesthesia: ISADORA; CHARLIE Estimated Blood Loss: 100ML; IVF=2L LR; U/X=020RA Findings: OBSTRUCTING RECTOSIGMOID CANCER; SEROSAL TEARS ON CECUM Specimen(s)/Culture(s) Description: RECTOSIGMOID AND ADDITIONAL DISTAL PORTION Complications: NONE
[2019-03-17] MEDS: Ketorolac INJ* 15 MG/ML 1 ML VIAL IV SCH ×2 (23:19)
[2019-03-18] MEDS: Ciprofloxacin 400MG IVPREMIX(* 400 MG/200 ML BAG IVPB SCH ×4 (00:09→22:23)
[2019-03-18] MEDS: metroNIDAZOLE IV 500 MG/100ML* 500 MG/100 ML BAG IVPB SCH ×4 (00:15→16:53)
[2019-03-18] MEDS: Acetaminophen IV 1GM/100ML * 100 ML IVPB SCH ×4 (01:19→19:52)
--- NOTE | 2019-03-18 03:20 | OP ---
CC: Dr. Claudette Wright; Dr. Leoncio So * DATE OF OPERATION: 03/17/19 - ROOM #338 DATE OF : 32. PRIMARY CARE PHYSICIAN: Dr. Claudette Wright. SURGEON: Cornel Concepcion MD ASSISTANTS: 1. Dr. Rhodes. 2. Dr. Palmer. 3. TAMMY Degroot. ANESTHESIOLOGIST: Dr. Bliss. ANESTHESIA: General anesthesia. PRE-OP DIAGNOSIS: Obstructing colon cancer. POST-OP DIAGNOSIS: Obstructing colon cancer. OPERATIVE PROCEDURES: 1. Low anterior resection. 2. Creation of loop ileostomy. 3. Suture repair of cecum. BLOOD LOSS: 100 cc. FLUIDS: 2 L of crystalloid fluid given. URINE OUTPUT: Approximately 400 cc. INDICATIONS: The patient is an 88-year-old female who was admitted with obstruction consistent with large bowel obstruction based on CT scan and presenting exam. She underwent a colonoscopy and Surgery was consulted when a large mass was biopsied and identified at 17 cm that was unable to be passed by the endoscopist. 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 I evaluated the patient and she was passing flatus at the time and our hope was that we could potentially prep her bowel for surgical intervention. The patient could not tolerate this and we decided more urgently to take her to the OR, outlined in details of exploratory laparotomy and segmental colectomy to the patient and patient's family in detail. Going over the risks, benefits, and alternatives. The alternatives we did discuss were possible transfer and stenting of the colon for temporizing measures. They were not interested in this and they wanted resection. We talked about the possibility of colostomy formation versus primary anastomosis versus primary anastomosis with ileostomy. After a long discussion, the patient signed consent for this planned possible ostomy placement along with partial colectomy. We did speak of the possible complications which included but not limited to bleeding, infection, injury to adjacent organs including bladder and ureter, need for additional procedures, possibility of metastatic cancer findings, possibility of diversion only as well as abdominal sepsis and wound infection, bleeding. The patient's questions were answered and she was consented. I also marked her belt line for planned placement of ileostomy or colostomy. She was evaluated by the anesthesiologist to place an epidural catheter in the preoperative area. FINDINGS: 1. Linear tears on the cecum secondary to distention. 2. Obstructing rectosigmoid cancer. SPECIMENS: Rectosigmoid staple end marked proximal, open end marked distal. Additional portion along with donuts from the EA stapling device. COMPLICATIONS: None. DRAINS: #10 ELIZABETH drain and Bates catheter. DESCRIPTION OF PROCEDURE: She was taken to the operating room and placed on the operating table in the supine position. Preoperative antibiotics were given. Sequential devices were placed on bilateral lower extremities. General anesthesia was induced and a Bates catheter inserted. The patient was placed in a modified lithotomy position from below. I did another rectal exam and had a significant amount of brown stool. No palpable masses were noted. Next, the abdomen was clipped of hair and prepped and draped in a standard surgical fashion and a time- out was performed. A large midline incision was made about 2 fingerbreadths above the umbilicus and extending into the pubic symphysis. This is deepened down through layers of the abdomen and entered into an abdomen where we had scant amount of free fluid at first and normal-appearing small bowel that was not distended. We saw distended cecum and transverse colon full of stool. There was a moderate amount of ascites in the pelvis. This is nonfoul smelling and suctioned off. We evaluated the uterus. This was normal as were the ovaries and no lesions. Bladder was decompressed with Bates catheter in place. Mass was noted overlying the sacrum and adhered to this area without much mobility. The sigmoid colon was floppy and intact. There was lymphadenopathy at this site. Throughout the ascending and transverse colon, there was stool but no additional lesions were appreciated. At the cecum, there was significant amount of air with two linear tears through the serosa that were imbricated with interrupted 3-0 silk sutures. There was no leakage at this time. The liver was examined, palpated, and was within normal limits as was the gallbladder. There were no palpable lesions and no stones in the gallbladder. No NG was placed. The anterior aspect of the stomach was intact. Next, Bookwalter was utilized. The small bowel, transverse colon and cecum were retracted up towards the right upper quadrant and that were able to look at the pelvis. The lesion was firmly adhered to the cecal promontory region. The lateral attachments to the sigmoid were then taken with electrocautery and this was extend towards down the right pelvic rim. The left ureter was identified and protected. Next, the right side of the sigmoid mesocolon was incised with electrocautery and we extended this towards the pelvis. This proved little more difficult to identify ureter first given the nature of the diseased area that stuck this firmly to the retroperitoneum. We entered into the retroperitoneum and dissected to the ureter and this was maintained safely. Bleeding was scant in this dissected plane and we were able to follow the course of the ureter and stay medial to this to ensure that we could get around this large lesion. The two pelvic dissections were then met in the middle going over the rectum. Next, I made a decision to come through healthy sigmoid colon and then utilizing dissection posterior with traction on the sigmoid colon would give us our best view of the site. We transected the sigmoid colon with 80 mm PRIYANK stapling device. With LigaSure, we came down right on top of the proximal sigmoid mesentery and took what appeared to be the left colic vessels. Lymphadenopathy was noted in this and we stayed proximal to this lymphadenopathy. We then swept this mesentery up and entered into the area of the sacral promontory, developing a plane that was somewhat easier on the left side but on the right side would encompass some more sticky tumor that made it somewhat more difficult. We took the lateral attachments to the proximal rectum with both electrocautery and LigaSure making sure we had ureters both left and right safely protected. This allowed us to pull the rectum more up into our view. We maintained our plane over the sacrum and continued dissection distally until we could have our lesion fully mobilized. Next, a TA stapler was inserted proximally at least 5 cm distal to the lesion and we cut the rectum at this site and passed this off as a specimen. We did have to utilize the second TA as the first one, the staple did not get fired. Leakage was minimal and we were able to clamp this and we had plenty of the proximal rectum to take additional tissue. Both these specimens were passed off first the one with lesion and its margin and then the additional small amount of rectum distal to this. Next, we irrigated and gained hemostasis. There was scant spillage, but we cleaned this up immediately and identified the rectal stump. This was intact without leaking or bleeding. I reviewed the proximal sigmoid. This was a large floppy sigmoid. The distal descending colon appeared to have good blood flow and was intact and we decided to keep this and perform an end-to-end anastomosis. It fell then into the pelvis with ease. We did take the line of Toldt up towards the splenic flexure but did not take the splenic flexure down entirely as this was not necessary. Next, we cleaned off the edges of the descending colon and placed a pursestring device through this. We utilized 3-0 suture and then looked inside her colon. There was fair amount of stool. This was suctioned out and we irrigated. We then placed the sizers in and utilized a 28-mm EEA 4.8 mm stapler load. The anvil was sutured in place utilizing the pursestring. We then from below placed the stapler up and through just anterior to the staple line at the rectum. We placed a spike out and made to create the end-to-end circular anastomosis. This then was tested by clamping the bowel proximally and insufflating air through Bates catheter. The colon distended and under water showed no evidence of bubbles. With a negative leak test, we then suctioned out fluid and looked for any additional bleeding. Hemostasis was achieved and we then did place little bit of Surgicel at the area over the sacral region and then placed a ELIZABETH drain through a separate stab incision and dropped this into the pelvis. The anastomosis laid in good orientation without tension and then we removed the Bookwalter device. Next, the cecum was identified. The sutures appeared intact that we had placed earlier. There was no evidence of ischemia. We then countered approximately 8 cm proximal to the terminal ileum and made a window through the mesentery. Then a disc of skin was made at the area overlying the rectus muscle on the right. This was deepened down to this muscle, which we incised the fascia and split the muscle and brought out the portion of ileum and the orientation of proximal in the up positioning. Next, we placed a red rubber catheter through the mesenteric hole that we had made and turned our attention to the midline incision. Tracked the omentum overlying the midline incision and closed it with #1 loop PDS suture starting inferiorly and sewing it to the superior edge and tying it. The wound was then irrigated and reapproximated with skin linda followed by a Prevena negative pressure wound coverage. Next, the ileostomy was Tess'd in the superior aspect for the afferent limb and also sutured to the skin at the efferent limb inferiorly. The red rubber catheter was maintained in place and colostomy appliance placed. The patient was then awoken up and transferred to the PACU in stable condition. [id number]/CPS #: [id number] MTDD
[2019-03-18] MEDS: Ketorolac INJ* 15 MG/ML 1 ML VIAL IV SCH ×4 (05:19→23:42)
[2019-03-18 05:54] LABS: ABS Lymphocytes 0.4 10^3/ul (1.0-4.8); ABS Monocytes 0.8 10^3/ul (0-0.8); ABS Neutrophils 13.3 10^3/ul (1.5-7.7); Hematocrit 31 % (35-47); Hemoglobin 10.5 g/dL (12.0-16.0); Lymphocyte % 2.5 %; Mean Corpuscular HGB Conc 33 g/dL (31-36); Mean Corpuscular Hemoglobin 29 pg (27-31); Mean Corpuscular Volume 88 fL (80-97); Mean Platelet Volume 7.4 fL (7.4-10.4); Platelet Count 436 10^3/uL (150-450); Red Blood Count 3.56 10^6 /uL (3.70-4.87); Red Cell Distribution Width 14 % (10-15); White Blood Count 14.4 10^3/uL (3.5-10.8)
[2019-03-18 06:13] LABS: BUN/Creatinine Ratio 18.8 (8-20); Calcium 7.7 mg/dL (8.6-10.3); EGFR African American 97.6 (>60); EGFR Non-African American 80.7 (>60); Magnesium 1.7 mg/dL (1.9-2.7); Potassium 3.6 mmol/L (3.5-5.0)
[2019-03-18] MEDS ORDERED: Magnesium Sulfate 2 GM IV* 2 GM/50 ML BAG IVPB ONE (07:02)
--- NOTE | 2019-03-18 07:07 | CONSULT ---
Consult Consult: 88yo woman POD # 1 s/p ex lap and colectomy 2/2 colon CA in whom I placed a thoracic epidural at T8. She has not required any additional opioids in the post op setting nor overnight. Her epidural is in tact. There is some blood under the dressing but that is from the original placment. PE: CV - NMRG Pulm - CTABL Musc - Epidural site non-erythematous, still secured 9cm at the skin. Plan: I will continue to follow. There is IV dilaudid if she needs some additional pain medication to assist with any discomfort. Please call if SBP < 90. Thank you to the nursing staff for their excellent care.
[2019-03-18] MEDS: Ondansetron INJ* 2 MG/ML VIAL IV PRN ×3 (07:09→23:44)
--- NOTE | 2019-03-18 09:31 | PN ---
Progress Note - Progress Note Date of Service: 03/18/19 SOAP: Subjective: Feels well except reports recent change in breathing. Denies N/V. Thirsty. Objective: Vital Signs Temp 98 F 03/18/19 08:05 Pulse 85 03/18/19 08:05 Resp 18 03/18/19 08:05 BP 103/42 03/18/19 08:05 Pulse Ox 100 03/18/19 08:05 Gen: NAD; no use of accessory mm. Lungs: CTA Heart: reg Abd: incision with Provena dressing c/d/i; ELIZABETH SS; ND, soft, NT. Ext: warm Intake & Output 03/17/19 03/18/19 03/18/19 18:59 06:59 18:59 Intake Total 0 1999 166 Output Total 1430 Balance 0 570 166 Intake: IV Fluids 1999 LR 1999 IVPB 166 Acetaminophen 106 Magensium 60 Oral 0 Output: ELIZABETH #1 280 [place] 950 Ileostomy 100 Estimated Blood Loss 100 Other: Estimated Void Medium # Bowel Movements 0 # Voids 1 Laboratory Results - last 24 hr 03/18/19 03/18/19 05:19 05:19 WBC 14.4 H RBC 3.56 L Hgb 10.5 L Hct 31 L MCV 88 MCH 29 MCHC 33 RDW 14 Plt Count 436 MPV 7.4 Neut % (Auto) 92.1 Lymph % (Auto) 2.5 Mccone % (Auto) 5.3 Eos % (Auto) 0.0 Baso % (Auto) 0.1 Absolute Neuts (auto) 13.3 H Absolute Lymphs (auto) 0.4 L Absolute Monos (auto) 0.8 Absolute Eos (auto) 0.0 Absolute Basos (auto) 0.0 Absolute Nucleated RBC 0.0 Nucleated RBC % 0.0 Sodium 136 Potassium 3.6 Chloride 105 Carbon Dioxide 23 Anion Gap 8 BUN 13 Creatinine 0.69 Est GFR ( Amer) 97.6 Est GFR (Non-Af Amer) 80.7 BUN/Creatinine Ratio 18.8 Glucose 143 H Calcium 7.7 L Magnesium 1.7 L Assessment: POD#1 s/p LAR/ileostomy for obstructing colorectal ca. Doing well. Subjective SOB-> r/o PE. Plan: Clears today. Cont CEI per Anest. D/w Hospitalist and CTA chest planned. Cont jefferson another day for monitoring u/o.
[2019-03-18] MEDS ORDERED: Iohexol 300* (CONTRAST) 10 ML SDV IV ONE (10:10)
[2019-03-18] MEDS: OBEPIDURAL* 250 ML EPIDURAL SCH ×2 (12:01→20:00)
--- NOTE | 2019-03-18 12:03 | PN ---
Subjective Date of Service: 03/18/19 Interval History: Patient has minimal pain from her incisions or distended feeling in her abdomen. Patient has mild SOB, but does not have other respiratory complaints and has only been using her incentive spirometer minimally. Patient denies F/C, N/V, dizziness, CP, or other pain. Family History: Unchanged from Admission Social History: Unchanged from Admission Past Medical History: Unchanged from Admission Objective Active Medications: Hydralazine HCl (Apresoline Iv*) 5 mg IV SLOW PU Q6H PRN PRN Reason: SBP >165 DBP >90 Hydromorphone HCl (Dilaudid Inj1s*) 0.25 mg IV SLOW PU Q4H PRN PRN Reason: PAIN - MODERATE Sodium Chloride (Ns 0.9% 1000 Ml) 1,000 mls @ 75 mls/hr IV PER RATE [facility] Last Admin: 03/17/19 21:37 Dose: 75 mls/hr Ciprofloxacin/Dextrose (Cipro 400 Mg Ivpremix(*)) 400 mg in 200 mls @ 200 mls/ hr IVPB 1000,2200 [facility]; Protocol Last Admin: 03/18/19 10:22 Dose: 200 mls/hr Metronidazole/Sodium Chloride (Flagyl 500 Mg Ivpb*) 500 mg in 100 mls @ 100 mls /hr IVPB 0100,0900,1700 [facility] Last Admin: 03/18/19 09:13 Dose: 100 mls/hr Acetaminophen (Ofirmev*) 100 mls @ 400 mls/hr IVPB 0130,0730,1330,1930 [facility] Stop: 03/19/19 00:29 Fentanyl/Ropivacaine (Fentanyl 2 Mcg/Ml+Ropivacaine 0.1% Epidural*) 250 mls @ 0 mls/hr EPIDURAL Q24H [facility]; Protocol Ketorolac Tromethamine (Toradol Inj*) 15 mg IV Q6H [facility] Stop: 03/19/19 16:59 Last Admin: 03/18/19 05:19 Dose: 15 mg Naloxone HCl (Narcan*) 0.08 mg IV Q2M PRN PRN Reason: Respiratory rate < 10 Ondansetron HCl (Zofran Inj*) 4 mg IV Q4H PRN PRN Reason: NAUSEA/VOMITING Last Admin: 03/18/19 07:09 Dose: 4 mg Vital Signs - 8 hr 03/18/19 03/18/19 03/18/19 04:25 07:25 08:05 Temperature 98 F Pulse Rate 85 Respiratory 18 18 Rate Blood Pressure 103/42 (mmHg) O2 Sat by Pulse 98 100 Oximetry 03/18/19 11:39 Temperature Pulse Rate Respiratory Rate Blood Pressure 110/60 (mmHg) O2 Sat by Pulse Oximetry Oxygen Devices in Use Now: Nasal Cannula Appearance: Patient is an 88yo female who appears younger than stated age and is sitting in the bed in NAD. Eyes: No Scleral Icterus, PERRLA Ears/Nose/Mouth/Throat: NL Teeth, Lips, Gums, Clear Oropharnyx, Mucous Membranes Moist Neck: NL Appearance and Movements; NL JVP, Trachea Midline Respiratory: Symmetrical Chest Expansion and Respiratory Effort, Clear to Auscultation Cardiovascular: NL Sounds; No Murmurs; No JVD, RRR, No Edema Abdominal: No Hepatosplenomegaly, - - Ileostomy in place with scant, dark, liquid output. Lymphatic: No Cervical Adenopathy Extremities: No Edema, No Clubbing, Cyanosis Result Diagrams: 03/18/19 05:19 03/18/19 05:19 Additional Lab and Data: Lab Results 03/15/19 03/15/19 03/15/19 Range/Units 13:30 13:30 13:30 WBC 14.7 H (3.5-10.8) 10^3/uL RBC 4.24 (3.70-4.87) 10^6 /uL Hgb 12.3 (12.0-16.0) g/dL Hct 37 (35-47) % MCV 88 (80-97) fL MCH 29 (27-31) pg MCHC 33 (31-36) g/dL RDW 14 (10-15) % Plt Count 557 H (150-450) 10^3/uL MPV 7.4 (7.4-10.4) fL Neut % (Auto) 94.7 % Lymph % (Auto) 2.6 % Latimer % (Auto) 2.3 % Eos % (Auto) 0.0 % Baso % (Auto) 0.4 % Absolute Neuts (auto) 13.9 H (1.5-7.7) 10^3/ul Absolute Lymphs (auto) 0.4 L (1.0-4.8) 10^3/ul Absolute Monos (auto) 0.3 (0-0.8) 10^3/ul Absolute Eos (auto) 0.0 (0-0.6) 10^3/ul Absolute Basos (auto) 0.1 (0-0.2) 10^3/ul Absolute Nucleated RBC 0.0 10^3/ul Nucleated RBC % 0.0 Sodium 137 (135-145) mmol/L Potassium 3.4 L (3.5-5.0) mmol/L Chloride 100 L (101-111) mmol/L Carbon Dioxide 28 (22-32) mmol/L Anion Gap 9 (2-11) mmol/L BUN 21 (6-24) mg/dL Creatinine 0.84 (0.51-0.95) mg/dL Est GFR ( Amer) 77.8 (>60) Est GFR (Non-Af Amer) 64.3 (>60) BUN/Creatinine Ratio 25.0 H (8-20) Glucose 177 H (70-100) mg/dL Lactic Acid 1.2 (0.5-2.0) mmol/L Calcium 9.2 (8.6-10.3) mg/dL Total Bilirubin 0.40 (0.2-1.0) mg/dL AST 15 (13-39) U/L ALT 10 (7-52) U/L Alkaline Phosphatase 64 (34-104) U/L C-Reactive Protein 36.00 H (<8.01) mg/L Total Protein 7.2 (6.4-8.9) g/dL Albumin 4.1 (3.2-5.2) g/dL Globulin 3.1 (2-4) g/dL Albumin/Globulin Ratio 1.3 (1-3) Lipase 25 (11.0-82.0) U/L Assess/Plan/Problems-Billing Assessment: Patient is an 88yo female with a PMH for HTN, HLD, here with large bowel obstruction with mass and high likelihood of malignancy who is being evaluated by surgery. - Patient Problems (1) Intestinal mass Current Visit: Yes Status: Acute Code(s): K63.89 - OTHER SPECIFIED DISEASES OF INTESTINE SNOMED Code(s): 75561524 Comment: - Large bowel mass, fully obstructing on sigmoidoscopy. - High concern for malignancy, Pathology shows invasive adenocarcinoma. - Questionable liver mets, pending pathology of primary mass. - CT shows no mets in lungs - Appreciate GI input and Surgery input - Oncology consult pending - Advance diet slowly - Continue antibiotics - Ileostomy in place. (2) HTN (hypertension) Current Visit: Yes Status: Acute Code(s): I10 - ESSENTIAL (PRIMARY) HYPERTENSION SNOMED Code(s): 78439052 Comment: - Hold Losartan/HCTZ - Normotensive - Hydralazine PRN. (3) Shortness of breath Current Visit: Yes Status: Acute Code(s): R06.02 - SHORTNESS OF BREATH SNOMED Code(s): 961187035 Comment: - Likely due to Atalectasis on chest CT. - Encourage Incentive Spirometry. (4) HLD (hyperlipidemia) Current Visit: Yes Status: Acute Code(s): E78.5 - HYPERLIPIDEMIA, UNSPECIFIED SNOMED Code(s): 24942992 Comment: - Hold lipitor at this time. (5) DVT prophylaxis Current Visit: Yes Status: Acute Code(s): Z29.9 - ENCOUNTER FOR PROPHYLACTIC MEASURES, UNSPECIFIED SNOMED Code(s): 221033616 Comment: - Hold lovenox at this time, SCDs (6) Full code status Current Visit: Yes Status: Acute Code(s): Z78.9 - OTHER SPECIFIED HEALTH STATUS SNOMED Code(s): 122755771 Status and Disposition: Inpatient for evaluation of options for intestinal mass.
[2019-03-18] MEDS: NS 0.9% 1000 ML** 1,000 ML IV SCH (16:41)
[2019-03-18] MEDS ORDERED: NS 0.9% 500 ML* 500 ML IV ONE (17:00)
--- NOTE | 2019-03-18 20:03 | CONS ---
CC: Dr. So; Dr. Concepcion; Dr. Wright; Dr. Gabriel Dumont * MEDICAL ONCOLOGY CONSULTATION NOTE: DATE OF CONSULT: 03/18/19 REASON FOR CONSULT: Colon cancer. HISTORY OF PRESENT ILLNESS: Randal Osorio is an 88-year-old female, who had very little in the way of past medical problems. She has had no prior surgeries and only has hypertension and hyperlipidemia. She was seen with the youngest of her 5 children in the room, who also provides a significant amount of history. Over the course of the last few months, she has been somewhat more fatigued, although still living independently alone. She has lost approximately 10 pounds, but much of this was with a recent upper respiratory infection. She had an outpatient CT scan due to abdominal pain, which was ordered by Dr. Wright. This revealed, on 02/24/19, diverticulosis and some fatty infiltration of the liver, but no other significant abnormalities. The patient had been somewhat constipated at that time and was treated with MiraLAX and reports that her symptoms got significantly improved. Subsequently, however , her abdominal pain got dramatically worse and she presented to the emergency room on 03/15/19. At that time, CT scan revealed dilated colon up to 8 cm with an abnormality at the junction of the sigmoid colon and the rectum. This was felt to be most likely a malignant obstruction. On both of these 2 CT scans, there were 3 small lesions noted in the liver, which could be either something significant or just benign cysts or hemangiomas. 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 Given the fully obstructing colon cancer that was noted at that time, the patient was then taken to the operating room on by Dr. Concepcion and had low anterior resection with creation of a loop ileostomy and suture repair of the cecum. No distant disease was noted, none of the liver lesions could be palpated. Pathology is clearly still pending from the surgery done late yesterday afternoon. A moderate amount of ascites was noted in the pelvis, which was not foul-smelling. The mass was noted to be overlying the sacrum and adherent to this area without much mobility. The patient is recovering well from surgery and has had a CT scan of the chest performed today, which again reveals small lesions in the liver, but no other significant abnormalities. She does have small bilateral pleural effusions postoperatively with some atelectasis. Bilateral subcutaneous emphysema is also noted. Laboratory studies have included no evidence for anemia at the time of admission with hemoglobin of 12.3 and today is 10.5 postoperatively. LFTs are normal. CEA is elevated at 42.5. PAST MEDICAL HISTORY: Hypertension and hyperlipidemia. MEDICATIONS: At the time of admission included only: 1. Hyzaar. 2. Aspirin. 3. Lipitor. 4. Multivitamins. ALLERGIES: To DOXYCYCLINE. FAMILY HISTORY: Mother with esophageal cancer in her 70s, who was a smoker. She reports family did not really discuss malignancies in general and she is unaware of any other family members, uncles, aunts, cousins and grandparents had any cancers. SOCIAL HISTORY: The patient lives alone in a 2-story house and is fully functional there. 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 Nonsmoker. Occasional alcohol. REVIEW OF SYSTEMS: No shortness of breath, chest pain, or palpitations. No significant urinary symptoms. No major arthritic complaints. No significant psychiatric or neurologic complaints. GI complaints as discussed above. Also recent viral type syndrome as discussed above. PHYSICAL EXAM: An 88-year-old female, in no acute distress. Vital Signs: Blood pressure 114/52, pulse 92, afebrile. HEENT: PERRL. EOMI. No erythema or exudates. No palpable cervical, supraclavicular, or axillary adenopathy. Lungs: Clear. Heart: Regular rate and rhythm without murmurs, rubs, or gallops. Abdomen: Soft, minimally distended. Occasional bowel sounds are noted. She has an ileostomy, which appears to be functional. Extremities: No edema in the legs. Mild edema in the hands. Neurologic exam without focal deficits. IMPRESSION AND PLAN: An 88-year-old female with colon cancer, which on initial biopsy was moderately differentiated. Mismatch repair genes and BRAF are pending. Situation discussed at length with the patient and her daughter, who is also her healthcare proxy. At this time, we cannot fully stage the patient as we do not have back results from the pathology. In addition, further diagnostic studies will be needed to better evaluate the liver. At present, the patient will need to recover from surgery and improve nutrition and mobility. I would recommend in approximately 2 weeks' time that she have an ultrasound of the liver along with a repeat CEA tumor marker. She will be seen back in the office after that with further discussion as to any potential recommendations for any adjuvant therapy. She is unclear at this time whether she would wish to have any adjuvant therapy even if the standard would be recommended given her age. She does, however, wish to continue ongoing evaluations. Standard if she were to be stage III would be chemotherapy certainly for anybody under the age of 80. At her age, this would need to be carefully considered. If she were to have stage IV disease, one would have to decide potential risks and benefits in an essentially incurable situation. CEA was initially elevated, but this could be from the primary tumor which was obstructing and obtaining a second CEA approximately 2 weeks postop will be useful as of that time the half-life of CEA as such and that should have returned to normal if all disease was resected. [id number]/[facility] #: [id number] MTDD
[2019-03-19] MEDS: metroNIDAZOLE IV 500 MG/100ML* 500 MG/100 ML BAG IVPB SCH ×3 (01:17→16:10)
[2019-03-19] MEDS: Ketorolac INJ* 15 MG/ML 1 ML VIAL IV SCH ×2 (05:43→10:43)
[2019-03-19 06:38] LABS: ABS Basophils 0.1 10^3/ul (0-0.2); ABS Eosinophils 0.1 10^3/ul (0-0.6); ABS Lymphocytes 1.2 10^3/ul (1.0-4.8); ABS Monocytes 1.1 10^3/ul (0-0.8); ABS Neutrophils 9.8 10^3/ul (1.5-7.7); Eosinophil % 0.7 %; Hematocrit 26 % (35-47); Hemoglobin 8.9 g/dL (12.0-16.0); Mean Corpuscular HGB Conc 34 g/dL (31-36); Mean Corpuscular Hemoglobin 30 pg (27-31); Mean Corpuscular Volume 87 fL (80-97); Mean Platelet Volume 7.2 fL (7.4-10.4); Platelet Count 426 10^3/uL (150-450); Red Blood Count 3.02 10^6 /uL (3.70-4.87); Red Cell Distribution Width 14 % (10-15); White Blood Count 12.3 10^3/uL (3.5-10.8)
[2019-03-19 06:55] LABS: Calcium 7.6 mg/dL (8.6-10.3); EGFR African American 82.3 (>60); Magnesium 2.3 mg/dL (1.9-2.7); Potassium 3.7 mmol/L (3.5-5.0)
[2019-03-19] MEDS: Ondansetron INJ* 2 MG/ML VIAL IV PRN ×2 (07:45→23:27)
[2019-03-19] MEDS: NS 0.9% 1000 ML** 1,000 ML IV SCH (07:56)
[2019-03-19] MEDS: D5W 1/2 NS KCl 20 Meq 1000 ML* 1,000 ML IV SCH (09:20)
[2019-03-19] MEDS: Ciprofloxacin 400MG IVPREMIX(* 400 MG/200 ML BAG IVPB SCH ×2 (09:27→22:16)
--- NOTE | 2019-03-19 10:19 | PN ---
Progress Note - Progress Note Date of Service: 03/19/19 SOAP: Subjective: Reports good pain control. Has some nausea, no vomiting. No hungry. Reports not drinking much. Feeling lightheaded at times. Denies CP/SOB. Objective: Vital Signs Temp 98 F 03/19/19 08:12 Pulse 80 03/19/19 08:12 Resp 16 03/19/19 08:12 BP 123/53 03/19/19 08:12 Pulse Ox 100 03/19/19 08:12 Gen: NAD; sitting up in bed. Abd: dressing intact; ostomy wiht large gas and fluid o/p; ELIZABETH SS. Intake & Output 03/18/19 03/19/19 03/19/19 18:59 06:59 18:59 Intake Total 1089 300 976 Output Total 340 610 0 Balance 749 -310 976 Intake: IV Fluids 481 100 Acetaminophen 100 NS (0.9%) 481 IVPB 608 976 ABX - CIPROFLOXACIN 230 56 ABX - FLAGYL 212 50 Acetaminophen 106 [place] 60 NS (0.9%) 870 Oral 200 Output: ELIZABETH #1 40 35 [place] 300 375 0 Ileostomy 200 Laboratory Results - last 24 hr 03/19/19 03/19/19 06:16 06:16 WBC 12.3 H RBC 3.02 L Hgb 8.9 L Hct 26 L MCV 87 MCH 30 MCHC 34 RDW 14 Plt Count 426 MPV 7.2 L Neut % (Auto) 80.2 Lymph % (Auto) 10.0 [place] % (Auto) 8.7 Eos % (Auto) 0.7 Baso % (Auto) 0.4 Absolute Neuts (auto) 9.8 H Absolute Lymphs (auto) 1.2 Absolute Monos (auto) 1.1 H Absolute Eos (auto) 0.1 Absolute Basos (auto) 0.1 Absolute Nucleated RBC 0.0 Nucleated RBC % 0.0 Sodium 135 Potassium 3.7 Chloride 107 Carbon Dioxide 25 Anion Gap 3 BUN 16 Creatinine 0.80 Est GFR ( Amer) 82.3 Est GFR (Non-Af Amer) 68.0 BUN/Creatinine Ratio 20.0 Glucose 105 H Calcium 7.6 L Magnesium 2.3 Assessment: POD#2 s/p LAR/loop ileostomy for obstructing colorectal ca. Stable hemodynamics. Oliguric prob due to intravascular depletion/third spacing/GI losses. Anemia, acute postop. Plan: Adv diet. IVF bolus prn. Cont jefferson to f/u u/o. PO meds. CEI per anesth. F/u labs.
[2019-03-19] MEDS ORDERED: Lactated Ringers 1000 ML Bag* 1,000 ML IV ONE (11:00)
[2019-03-19] MEDS: OBEPIDURAL* 250 ML EPIDURAL SCH ×2 (13:42→15:01)
--- NOTE | 2019-03-19 13:43 | CONSULT ---
Consult Consult: 88 yo woman with colon CA POD #1 s/p ex lap and colon resection in whom I placed a T8 thoracic epidural. Yesterday her left leg was numb and weak with hip flexion (4/5), muscle strength in the rest of her legs was 5/5. Her leg buckled while moving to the chair but she did not fall. I halved her epidural rate from 10 to 5 mL/hr. PE : cardio - NMRG Pulm - CTABL Musculoskelatal - weakness with hip flexion improved but not yet back to baseline. rest of muscle strength 5/5. epidural site - nonerythematous, epidural 7cm at the skin. Assessment/Plan : I think it is reasonable to get he up and sitting in the chair. I have spoken with her RN, they are aware of fall precautions and are going to make sure that she is well supported during her transfer. Tomorrow morning I am going to stop her epidural and give her some oxycodone and see how she tolerates that prior to pulling the catheter. Thank you so much for allowing me to participate in her care. - Renetta Bliss, DO
--- NOTE | 2019-03-19 14:21 | PN ---
Subjective Date of Service: 03/19/19 Interval History: Ms. Donato states that she "doesn't feel real good" today- she notes that she feels dizzy and her head feels "fuzzy," which she attributes to her pain medication. She has not ambulated yet. She states she has weakness in the L leg, as well as some tingling. There is an epidural in place. She has abdominal discomfort, but denies pain. Colostomy is producing well. She is tolerating liquids well, and will start eating some solids today. She notes that SOB has improved, although she is still on 1.5L O2 (no baseline O2 requirements). She has no other complaints today. Family History: Unchanged from Admission Social History: Unchanged from Admission Past Medical History: Unchanged from Admission Objective Active Medications: Acetaminophen (Tylenol Tab*) 650 mg PO Q6H BRUCE Hydralazine HCl (Apresoline Iv*) 5 mg IV SLOW PU Q6H PRN Hydromorphone HCl (Dilaudid Inj1s*) 0.25 mg IV SLOW PU Q4H PRN Ciprofloxacin/Dextrose (Cipro 400 Mg Ivpremix(*)) 400 mg in 200 mls @ 200 mls/ hr IVPB 1000,2200 BRUCE; Protocol Metronidazole/Sodium Chloride (Flagyl 500 Mg Ivpb*) 500 mg in 100 mls @ 100 mls /hr IVPB 0100,0900,1700 BRUCE Potassium Chloride/Dextrose (D5w 1/2 Ns Kcl 20 Meq 1000 Ml*) 1,000 mls @ 100 mls/hr IV PER RATE BRUCE Fentanyl/Ropivacaine (Fentanyl 2 Mcg/Ml+Ropivacaine 0.1% Epidural*) 250 mls @ 0 mls/hr EPIDURAL Q24H BRUCE; Protocol Ketorolac Tromethamine (Toradol Inj*) 15 mg IV Q6H BRUCE Naloxone HCl (Narcan*) 0.08 mg IV Q2M PRN Ondansetron HCl (Zofran Inj*) 4 mg IV Q4H PRN Vital Signs: Temp Pulse Resp BP Pulse Ox 98.8 F 79 16 125/61 99 03/19/19 11:14 03/19/19 11:14 03/19/19 11:14 03/19/19 11:14 03/19/19 11:14 Oxygen Devices in Use Now: Nasal Cannula Appearance: Pt is sitting up in bed, HOB elevated. She is pleasant, cooperative , appears comfortable and in no acute distress. Eyes: No Scleral Icterus, PERRLA Ears/Nose/Mouth/Throat: NL Teeth, Lips, Gums, Clear Oropharnyx, Mucous Membranes Moist Neck: NL Appearance and Movements; NL JVP, Trachea Midline, - - Thoracic area with epidural line in place, CDI dressing in place. Respiratory: Symmetrical Chest Expansion and Respiratory Effort, Clear to Auscultation Cardiovascular: NL Sounds; No Murmurs; No JVD, RRR, No Edema Abdominal: No Hepatosplenomegaly, - - BS hypoactive; mild abdominal distention. ELIZABETH drain in with thin, bloody serosang output; CDI dressing in place to abdomen. Colostomy with output noted in bag. Extremities: No Edema, No Clubbing, Cyanosis Neurological: Alert and Oriented x 3, NL Sensation, NL Muscle Strength and Tone - Strength 5/5 b/l with L<R hip flexion. Result Diagrams: 03/19/19 06:16 03/19/19 06:16 Additional Lab and Data: Lab Results 03/15/19 03/15/19 03/15/19 Range/Units 13:30 13:30 13:30 WBC 14.7 H (3.5-10.8) 10^3/uL RBC 4.24 (3.70-4.87) 10^6 /uL Hgb 12.3 (12.0-16.0) g/dL Hct 37 (35-47) % MCV 88 (80-97) fL MCH 29 (27-31) pg MCHC 33 (31-36) g/dL RDW 14 (10-15) % Plt Count 557 H (150-450) 10^3/uL MPV 7.4 (7.4-10.4) fL Neut % (Auto) 94.7 % Lymph % (Auto) 2.6 % [place] % (Auto) 2.3 % Eos % (Auto) 0.0 % Baso % (Auto) 0.4 % Absolute Neuts (auto) 13.9 H (1.5-7.7) 10^3/ul Absolute Lymphs (auto) 0.4 L (1.0-4.8) 10^3/ul Absolute Monos (auto) 0.3 (0-0.8) 10^3/ul Absolute Eos (auto) 0.0 (0-0.6) 10^3/ul Absolute Basos (auto) 0.1 (0-0.2) 10^3/ul Absolute Nucleated RBC 0.0 10^3/ul Nucleated RBC % 0.0 Sodium 137 (135-145) mmol/L Potassium 3.4 L (3.5-5.0) mmol/L Chloride 100 L (101-111) mmol/L Carbon Dioxide 28 (22-32) mmol/L Anion Gap 9 (2-11) mmol/L BUN 21 (6-24) mg/dL Creatinine 0.84 (0.51-0.95) mg/dL Est GFR ( Amer) 77.8 (>60) Est GFR (Non-Af Amer) 64.3 (>60) BUN/Creatinine Ratio 25.0 H (8-20) Glucose 177 H (70-100) mg/dL Lactic Acid 1.2 (0.5-2.0) mmol/L Calcium 9.2 (8.6-10.3) mg/dL Total Bilirubin 0.40 (0.2-1.0) mg/dL AST 15 (13-39) U/L ALT 10 (7-52) U/L Alkaline Phosphatase 64 (34-104) U/L C-Reactive Protein 36.00 H (<8.01) mg/L Total Protein 7.2 (6.4-8.9) g/dL Albumin 4.1 (3.2-5.2) g/dL Globulin 3.1 (2-4) g/dL Albumin/Globulin Ratio 1.3 (1-3) Lipase 25 (11.0-82.0) U/L Assess/Plan/Problems-Billing Assessment: Patient is an 88yo female with a PMH for HTN, HLD, here with large bowel obstruction with mass and high likelihood of malignancy, s/p colectomy 03/17. - Patient Problems (1) Intestinal mass Comment: - Large bowel mass, fully obstructing on sigmoidoscopy; s/p colectomy 03/17 - High concern for malignancy, Pathology shows invasive adenocarcinoma - Questionable liver mets, pending pathology of primary mass - CT shows no mets in lungs - Appreciate GI input and Surgery input - Oncology consulted, recommend repeat liver US, CEA in 2 weeks and follow outpatient with oncology - Advance diet slowly - Continue antibiotics - Ileostomy in place (2) Shortness of breath Comment: - Pt states this is improving; still requiring some supplemental O2 - Likely due to atelectasis noted on chest CT - Encourage Incentive Spirometry (3) HTN (hypertension) Comment: - Normotensive - Has not required hydralazine - Will continue to hold losartan/HCTZ - Continue to monitor need for restart of home medications (4) HLD (hyperlipidemia) Comment: - Will restart lipitor today (5) DVT prophylaxis Comment: - Hold lovenox at this time, SCDs (6) Full code status Status and Disposition: Inpatient. S/p exploratory lap and colectomy for obstructing colon mass.
[2019-03-19] MEDS: Acetaminophen TAB* 325 MG PO SCH ×2 (15:01→21:05)
[2019-03-19] MEDS: Atorvastatin* 20 MG TAB PO SCH (21:05)
[2019-03-20] MEDS: metroNIDAZOLE IV 500 MG/100ML* 500 MG/100 ML BAG IVPB SCH ×3 (00:52→18:26)
[2019-03-20] MEDS: D5W 1/2 NS KCl 20 Meq 1000 ML* 1,000 ML IV SCH ×2 (00:53→13:52)
[2019-03-20] MEDS: Acetaminophen TAB* 325 MG PO SCH ×4 (01:44→22:13)
[2019-03-20 06:10] LABS: ABS Basophils 0.1 10^3/ul (0-0.2); ABS Eosinophils 0.3 10^3/ul (0-0.6); ABS Lymphocytes 1.1 10^3/ul (1.0-4.8); ABS Neutrophils 7.7 10^3/ul (1.5-7.7); Eosinophil % 2.8 %; Hematocrit 27 % (35-47); Hemoglobin 8.9 g/dL (12.0-16.0); Lymphocyte % 10.8 %; Mean Corpuscular HGB Conc 33 g/dL (31-36); Mean Corpuscular Hemoglobin 29 pg (27-31); Mean Corpuscular Volume 89 fL (80-97); Mean Platelet Volume 7.1 fL (7.4-10.4); Platelet Count 430 10^3/uL (150-450); Red Blood Count 3.07 10^6 /uL (3.70-4.87); Red Cell Distribution Width 15 % (10-15); White Blood Count 10.1 10^3/uL (3.5-10.8)
[2019-03-20 06:42] LABS: BUN/Creatinine Ratio 15.4 (8-20); Calcium 7.6 mg/dL (8.6-10.3); EGFR African American 84.7 (>60); Potassium 4.4 mmol/L (3.5-5.0)
[2019-03-20] MEDS: Ketorolac INJ* 15 MG/ML 1 ML VIAL IV PUSH PRN ×2 (06:45→22:18)
[2019-03-20] MEDS: Ondansetron INJ* 2 MG/ML VIAL IV PRN (07:51)
[2019-03-20] MEDS ORDERED: oxyCODONE TAB* 5 MG TAB PO PRN (09:39)
--- NOTE | 2019-03-20 10:06 | PN ---
Progress Note - Progress Note Date of Service: 03/20/19 SOAP: Subjective:feels"congested";tolerating solids;mild nausea,no vomiting;good pain control [] Objective: Vital Signs Temp 98 F 03/20/19 08:01 Pulse 72 03/20/19 08:01 Resp 17 03/20/19 08:01 BP 119/59 03/20/19 08:01 Pulse Ox 96 03/20/19 08:01 Intake & Output 03/19/19 03/20/19 03/20/19 18:59 06:59 18:59 Intake Total 2667 1469 Output Total 730 1695 30 Balance 1937 -226 -30 Intake: IV Fluids 669 D5W 1/2 NS 20 meq KCL 669 IVPB 2307 300 ABX - CIPROFLOXACIN 56 200 ABX - FLAGYL 50 100 D5W 1/2 NS 20 meq KCL 331 LR 1000 NS (0.9%) 870 Oral 360 500 Output: ELIZABETH #1 30 20 30 [place] 300 1225 Ileostomy 400 450 Laboratory Results - last 24 hr 03/20/19 03/20/19 05:46 05:46 WBC 10.1 RBC 3.07 L Hgb 8.9 L Hct 27 L MCV 89 MCH 29 MCHC 33 RDW 15 Plt Count 430 MPV 7.1 L Neut % (Auto) 76.1 Lymph % (Auto) 10.8 [place] % (Auto) 9.7 Eos % (Auto) 2.8 Baso % (Auto) 0.6 Absolute Neuts (auto) 7.7 Absolute Lymphs (auto) 1.1 Absolute Monos (auto) 1.0 H Absolute Eos (auto) 0.3 Absolute Basos (auto) 0.1 Absolute Nucleated RBC 0.0 Nucleated RBC % 0.0 Sodium 137 Potassium 4.4 Chloride 111 Carbon Dioxide 23 Anion Gap 3 BUN 12 Creatinine 0.78 Est GFR ( Amer) 84.7 Est GFR (Non-Af Amer) 70.0 BUN/Creatinine Ratio 15.4 Glucose 143 H Calcium 7.6 L lungs:clear bilat;heart:RRR;abd:ileostomy with gas and stool;wound vac in place; ELIZABETH serosanguinous;soft;appropriately tender;ext:nontender calves [] Assessment:POD#3 s/p low anterior resection,loop ileostomy for obstructing colon cancer;stable [] Plan:add Mucinex expectorant Inspiron q1h remove jefferson after epidural removed ostomy teaching []
[2019-03-20] MEDS: Ciprofloxacin 400MG IVPREMIX(* 400 MG/200 ML BAG IVPB SCH ×2 (10:27→22:57)
[2019-03-20] MEDS: Ketorolac INJ* 15 MG/ML 1 ML VIAL IV PUSH SCH ×3 (10:27→22:00)
[2019-03-20] MEDS: guaiFENesin ER TAB 600 MG PO SCH ×2 (10:27→22:14)
[2019-03-20] MEDS: OBEPIDURAL* 250 ML EPIDURAL SCH (12:17)
--- NOTE | 2019-03-20 18:24 | PN ---
Subjective Date of Service: 03/20/19 Interval History: Ms. Osorio states "I don't feel like me." When asked to elaborate, she becomes tearful, stating that she is discouraged with her decrease in mobility. She continues to have numbness in the L leg, although this is only in the knee. She has difficulty with movement of the L knee. She was walking with PT today, and states that it was difficult, b/c of numbness in L knee. Her epidural was removed this morning. She states that her abdominal pain is well controlled. She denies SOB, cough. No other complaints. Family History: Unchanged from Admission Social History: Unchanged from Admission Past Medical History: Unchanged from Admission Objective Active Medications: Acetaminophen (Tylenol Tab*) 650 mg PO Q6H BRUCE Atorvastatin Calcium (Lipitor*) 20 mg PO 2100 BRUCE Guaifenesin (Mucinex*) 600 mg PO BID BRUCE Hydralazine HCl (Apresoline Iv*) 5 mg IV SLOW PU Q6H PRN Hydromorphone HCl (Dilaudid Inj1s*) 0.25 mg IV SLOW PU Q4H PRN Ciprofloxacin/Dextrose (Cipro 400 Mg Ivpremix(*)) 400 mg in 200 mls @ 200 mls/ hr IVPB 1000,2200 BRUCE; Protocol Metronidazole/Sodium Chloride (Flagyl 500 Mg Ivpb*) 500 mg in 100 mls @ 100 mls /hr IVPB 0100,0900,1700 BRUCE Potassium Chloride/Dextrose (D5w 1/2 Ns Kcl 20 Meq 1000 Ml*) 1,000 mls @ 100 mls/hr IV PER RATE [facility] Fentanyl/Ropivacaine (Fentanyl 2 Mcg/Ml+Ropivacaine 0.1% Epidural*) 250 mls @ 0 mls/hr EPIDURAL Q24H [facility]; Protocol Ketorolac Tromethamine (Toradol Inj*) 15 mg IV PUSH Q6H PRN Ketorolac Tromethamine (Toradol Inj*) 15 mg IV PUSH Q6H BRUCE Naloxone HCl (Narcan*) 0.08 mg IV Q2M PRN Ondansetron HCl (Zofran Inj*) 4 mg IV Q4H PRN Oxycodone HCl (Roxycodone Tab*) 5 mg PO Q4H PRN Vital Signs: Temp Pulse Resp BP Pulse Ox 98.0 F 73 22 132/63 98 03/20/19 16:22 03/20/19 16:22 03/20/19 16:22 03/20/19 16:22 03/20/19 16:22 Oxygen Devices in Use Now: None Appearance: Pt is sitting in chair with LE at floor. She is in no acute distress. She becomes tearful, and states that she feels discouraged. Eyes: No Scleral Icterus, PERRLA Ears/Nose/Mouth/Throat: NL Teeth, Lips, Gums, Clear Oropharnyx, Mucous Membranes Moist Neck: NL Appearance and Movements; NL JVP, Trachea Midline Respiratory: Symmetrical Chest Expansion and Respiratory Effort, Clear to Auscultation Cardiovascular: NL Sounds; No Murmurs; No JVD, RRR, No Edema Abdominal: - - BS hypoactive. Incision site with CDI dressing in place. ELIZABETH drain in place with thin, blood-tinged serosanguineous fluid in bulb. Iliostomy in place with good output. Abdomen with mild TTP. Extremities: No Edema, No Clubbing, Cyanosis Neurological: Alert and Oriented x 3, - - Decreased sensation at anterior L knee. L hip flexion, L knee flexion 2-3/5. R knee 5/5 throughout Result Diagrams: 03/21/19 05:32 03/20/19 05:46 Additional Lab and Data: Lab Results 03/15/19 03/15/19 03/15/19 Range/Units 13:30 13:30 13:30 WBC 14.7 H (3.5-10.8) 10^3/uL RBC 4.24 (3.70-4.87) 10^6 /uL Hgb 12.3 (12.0-16.0) g/dL Hct 37 (35-47) % MCV 88 (80-97) fL MCH 29 (27-31) pg MCHC 33 (31-36) g/dL RDW 14 (10-15) % Plt Count 557 H (150-450) 10^3/uL MPV 7.4 (7.4-10.4) fL Neut % (Auto) 94.7 % Lymph % (Auto) 2.6 % [place] % (Auto) 2.3 % Eos % (Auto) 0.0 % Baso % (Auto) 0.4 % Absolute Neuts (auto) 13.9 H (1.5-7.7) 10^3/ul Absolute Lymphs (auto) 0.4 L (1.0-4.8) 10^3/ul Absolute Monos (auto) 0.3 (0-0.8) 10^3/ul Absolute Eos (auto) 0.0 (0-0.6) 10^3/ul Absolute Basos (auto) 0.1 (0-0.2) 10^3/ul Absolute Nucleated RBC 0.0 10^3/ul Nucleated RBC % 0.0 Sodium 137 (135-145) mmol/L Potassium 3.4 L (3.5-5.0) mmol/L Chloride 100 L (101-111) mmol/L Carbon Dioxide 28 (22-32) mmol/L Anion Gap 9 (2-11) mmol/L BUN 21 (6-24) mg/dL Creatinine 0.84 (0.51-0.95) mg/dL Est GFR ( Amer) 77.8 (>60) Est GFR (Non-Af Amer) 64.3 (>60) BUN/Creatinine Ratio 25.0 H (8-20) Glucose 177 H (70-100) mg/dL Lactic Acid 1.2 (0.5-2.0) mmol/L Calcium 9.2 (8.6-10.3) mg/dL Total Bilirubin 0.40 (0.2-1.0) mg/dL AST 15 (13-39) U/L ALT 10 (7-52) U/L Alkaline Phosphatase 64 (34-104) U/L C-Reactive Protein 36.00 H (<8.01) mg/L Total Protein 7.2 (6.4-8.9) g/dL Albumin 4.1 (3.2-5.2) g/dL Globulin 3.1 (2-4) g/dL Albumin/Globulin Ratio 1.3 (1-3) Lipase 25 (11.0-82.0) U/L Assess/Plan/Problems-Billing Assessment: Patient is an 88yo female with a PMH for HTN, HLD, here with large bowel obstruction with mass and high likelihood of malignancy, s/p colectomy 03/17. - Patient Problems (1) Weakness Comment: -Pt with weakness of hip flexion, knee extension on L -Likely that this is a result of epidural, which was removed this morning -Will monitor for resolution to determine if there is a need for further intervention (2) Intestinal mass Comment: - Large bowel mass, fully obstructing on sigmoidoscopy; s/p colectomy 03/17 - Pathology shows invasive adenocarcinoma - Questionable liver mets, pending pathology of primary mass - CT shows no mets in lungs - Appreciate GI input and Surgery input - Oncology consulted, recommend repeat liver US, CEA in 2 weeks and follow outpatient with oncology - Advance diet slowly - Continue antibiotics per surgery - Ileostomy in place (3) Shortness of breath Comment: - Resolved - No longer using supplemental O2 - Likely due to atelectasis noted on chest CT - Encourage Incentive Spirometry (4) HTN (hypertension) Comment: - Normotensive - Has not required hydralazine - Will continue to hold losartan/HCTZ - Continue to monitor need for restart of home medications (5) HLD (hyperlipidemia) Comment: - Continue lipitor (6) DVT prophylaxis Comment: - Hold lovenox at this time, SCDs (7) Full code status Status and Disposition: Inpatient. S/p exploratory lap and colectomy for obstructing colon mass.
[2019-03-20] MEDS ORDERED: Saline NASAL SPRAY 0.65%* BTL BOTH NARES PRN (18:27)
[2019-03-21] MEDS: Atorvastatin* 20 MG TAB PO SCH ×2 (00:17→09:33)
[2019-03-21] MEDS: metroNIDAZOLE IV 500 MG/100ML* 500 MG/100 ML BAG IVPB SCH ×3 (01:12→17:41)
[2019-03-21] MEDS: D5W 1/2 NS KCl 20 Meq 1000 ML* 1,000 ML IV SCH ×2 (02:32→15:24)
[2019-03-21] MEDS: Acetaminophen TAB* 325 MG PO SCH ×4 (02:36→20:09)
[2019-03-21] MEDS: Ketorolac INJ* 15 MG/ML 1 ML VIAL IV PUSH SCH ×4 (04:30→21:41)
[2019-03-21 05:40] LABS: Hematocrit 28 % (35-47); Hemoglobin 9.3 g/dL (12.0-16.0)
[2019-03-21] MEDS: Ondansetron INJ* 2 MG/ML VIAL IV PRN ×2 (07:54→17:46)
--- NOTE | 2019-03-21 09:13 | PN ---
Progress Note - Progress Note Date of Service: 03/21/19 Note: Subjective Patient is POD#4 for large bowel obstruction. Patient is feeling okay. She reports some nausea but no vomiting. She does not really have an appetite but has been drinking water. Patient say she is able to urinate. She says her congestion has cleared up and she has been using the incentive spirometry which has been helping. Overall, she is not in pain. She endorsed some RLQ discomfort that was not noted yesterday as per her daughter. Discomfort is located just below her ileostomy. She is anxious to move around and walk as she believes it will help with her healing. Objective Sodium 137 mmol/L (135-145) 03/20/19 05:46 Potassium 4.4 mmol/L (3.5-5.0) 03/20/19 05:46 BUN 12 mg/dL (6-24) 03/20/19 05:46 Creatinine 0.78 mg/dL (0.51-0.95) 03/20/19 05:46 Calcium 7.6 mg/dL (8.6-10.3) L 03/20/19 05:46 Magnesium 2.3 mg/dL (1.9-2.7) 03/19/19 06:16 AST 15 U/L (13-39) 03/15/19 13:30 ALT 10 U/L (7-52) 03/15/19 13:30 Vital Signs Temp 99.6 F 03/21/19 07:59 Pulse 66 03/21/19 07:59 Resp 16 03/21/19 07:59 BP 134/65 03/21/19 07:59 Pulse Ox 96 03/21/19 07:59 Intake & Output 03/20/19 03/21/19 03/21/19 18:59 06:59 18:59 Intake Total 1525 1041 Output Total 1045 1915 220 Balance 480 -874 -220 Intake: IV Fluids 980 301 ABX - CIPROFLOXACIN 200 ABX - FLAGYL 101 D5W 1/2 NS 20 meq KCL 980 IVPB 305 ABX - CIPROFLOXACIN 205 ABX - FLAGYL 100 Oral 240 740 Output: ELIZABETH #1 120 15 20 Urine 325 1700 200 [place] 475 Ileostomy 125 200 General: Well appearing and in NAD. Pleasant and able to communicate her needs. CV/PV: RRR, no murmurs rubs or gallops. No extremity edema. Pulses equal 2+ bilaterally in upper and lower extremities Resp: Lungs CTA. No adventitious sounds. Abdomen: Soft and non-tender to palpation. No bruising or ecchymoses. Mild discomfort to RLQ under ileostomy bag. Ileostomy site clean with small amount of brown feces in bag. Drain site is clean with drainage. Assessment/ Plan Patient is POD#4 for large bowel obstruction. Patient is in minimal pain and her congestion has cleared. While she is nauseous at times, she has no vomiting and is able to tolerate fluids. Her ileostomy bag contains brown formed stool and gas. Drainage is appropriate. Physical therapy consult ordered to help her begin to ambulate. She still complains of left knee weakness after discontinuation of epidural. Continue to monitor and help with ambulation; ortho consult to further evaluate her leg and help with management. Continue to pus inspiron and solid diet as tolerated. Signed, SHIRLEY Moseley
[2019-03-21] MEDS: guaiFENesin ER TAB 600 MG PO SCH ×2 (09:33→21:38)
--- NOTE | 2019-03-21 10:15 | PN ---
Progress Note - Progress Note Date of Service: 03/21/19 SOAP: Subjective:eating small amounts,no n/v,minimal abd pain;expresses frustration with mobility,L knee weakness [] Objective: Vital Signs Temp 99.6 F 03/21/19 07:59 Pulse 66 03/21/19 07:59 Resp 16 03/21/19 08:00 BP 134/65 03/21/19 07:59 Pulse Ox 96 03/21/19 07:59 Intake & Output 03/20/19 03/21/19 03/21/19 18:59 06:59 18:59 Intake Total 1525 1041 Output Total 1045 1915 220 Balance 480 -994 -220 Intake: IV Fluids 980 301 ABX - CIPROFLOXACIN 200 ABX - FLAGYL 101 D5W 1/2 NS 20 meq KCL 980 IVPB 305 ABX - CIPROFLOXACIN 205 ABX - FLAGYL 100 Oral 240 740 Output: ELIZABETH #1 120 15 20 Urine 325 1700 200 [place] 475 Ileostomy 125 200 lungs:clear bilat,good effort;heart:RRR;abd:ileostomy with gas and semi formed brown stool;preveena vac over midline incision;ELIZABETH serosang;minimal tenderness; ext:nontender calves;LLE weakness with L knee instability as demonstrated with walking from bed to door with 2 assist,gait belt and walker(Dr Concepcion and I assessed) [] Assessment:POD#4 s/p LAR,loop ileostomy for obstructing colon cancer;needs to have L knee assessed by Ortho to determine rehab plan;tolerating low fiber diet in small amounts [] Plan:Dr Concepcion called for Ortho consult continue PT check labs 03/22/19 am inspiron nutrition consult []
[2019-03-21] MEDS: Ciprofloxacin 400MG IVPREMIX(* 400 MG/200 ML BAG IVPB SCH ×2 (10:44→21:35)
[2019-03-21] MEDS: OBEPIDURAL* 250 ML EPIDURAL SCH (12:41)
--- NOTE | 2019-03-21 13:09 | CONSULT ---
Consult Consult: Consult for weakness and knee buckling of LLE, onset after abdominal surgery last saturday 03/17. Prior to surgery patient reports no pain, weakness or numbness of the LLE. Today she feels her entire left leg to have decreased sensation. LLE: Skin envelope intact, no tenderness to palpation. Passive flexion and extension of digits, ankle, knee and hip nonpainful. Active f/e of digits, ankle and hip intact with good strength in DF/PF, knee flexion, hip flexion. She has weakness of knee extension and inability to straight leg raise. There is no palpable defect in the quad. There is no true numbness but she has decreased sensation throughout the entire left leg, with greatest area of decreased sensation of the medial and anterior thigh. There is normal sensation above level of the groin. DP2+ and cap refill less than two seconds distally. No acute injury to the knee, she does have osteoarthritis which would not result in this acute onset of weakness/ numbness and buckling. Suggest she have a spine consult as well as discuss with anesthesia to determine if epidural could contribute to this lasting weakness/numbness. Discussed this case with Dr Keating, she agrees with this assessment and plan.
--- NOTE | 2019-03-21 16:01 | CONSULT ---
Consult Consult: 88 yo POD # 4 s/p colectomy 2/2 colon CA. She is c/o residual numbness and weakness in her let leg. ROS : She says that there is weakness in her leg and that she is felling numb over her knee and toes on her left foot. When descrbing her knee numbnes she says it is "right here" and points to just above her patella in the midline. She denies any laterality to her knee and it is the same with her toes. She says they feel numb where they attach to her foot. She denies any numbness or weakness in any of her other extremities. She denies any incontinence of bowel and bladder. Her perceived numbness has been unchanged over the past few days. Her c/o numbness started on Wednesday (POD#1) after her surgery which was performed the previous evening. PE : Musculoskelatal - Her perception of temperature is in tact in both her right and left leg and feet. The muscle strength of her legs are 5/5 except for left hip flexion which is 4/5. Assessment and Plan : Her weakness is unilateral and her bowel and bladder function are in tact. She is afebrile. This makes the risk of an epidural abscess or hematoma very low. When thinking of an isolated neurodeficit, I would consider three things. First, you would consider whether there was damage during the placement if the epidural. The epidural was at the T8 level, her neurodeficit is from the lumbar nerves, which excludes this possibility. Second, you would consider that there may be some residual paresthesia from the epidural solution (0.1% ropivacaine). This could be a possibility. It was turned off about 34 hours ago, so if this were the case you would expect it to wear off soon. Third, I would consider injury to the femoral nerve from being in the lithotomy position during her surgery. This could also be a possibility. The algorithm of taking care of a unilateral nerve injury first suggests time. If the nerve deficit persists past a few weeks then she should see a neurologist to assess and perform neuroconduction and electromyography. I will leave it up to the surgical team as to when they would like to get neurology involved if their care is merited. For her immediate care, I would continue having PT assisting in her care. She needs to get up and moving. Which I think she can do with some assistance. My concern is if she lays in bed her muscles are going to atrophy. I am going to sign off. However, if there are any further concerns, please feel free to contact me. - Renetta Bliss DO [phone] cell [phone] pager
--- NOTE | 2019-03-21 17:51 | PN ---
Progress Note - Progress Note Date of Service: 03/21/19 Note: Pt seen and examined. S/p abdominal surgery by Dr Concepcion on Wednesday. She underwent an epidural for surgery and did well however she has persistent numbness and weakness of left leg. Has been having buckling of the left leg and knee and limits her ambulation. She denies any pain in her leg but reports numbness. No history of numbness in leg before. H/o of knee pain years ago. Temp Pulse Resp BP Pulse Ox 98.3 F 80 16 146/75 96 03/21/19 17:13 03/21/19 17:13 03/21/19 17:13 03/21/19 17:13 03/21/19 17:13 NAD. AAOx3. RLE: 5/5 hip flexion, knee extension, ankle DF/PF, great toe extension. SILT about 1st dws, medial, lateral, plantar, and dorsal foot. 2+ PT pulse. LLE: skin intact. nontender to palpation unable to do straight leg raise nor extend leg from gravity. 5/5 with DF/PF, EHL. SILT grossly about the 1st dws , medial, lateral, dorsal, and plantar foot and per patient comparable to contralateral side. 2+ PT pulse Knee xrays reviewed and demonstrate OA A/P 88 yo F with LLE weakness after surgery. possible nerve injury versus prolonged epidural versus positioning injury. would recommend neurosurgery consult to evaluate appreciate consult and will sign off for now. pls call with any questions.
--- NOTE | 2019-03-21 18:23 | PN ---
Subjective Date of Service: 03/21/19 Interval History: Pt continues to have some L peripatellar numbness, knee buckling with ambulation , decreased hip flexion, knee extension. She denies pain in area, but has been hesitant to ambulate due to these symptoms. She is eating and drinking. She has no other complaints today, but continues to mention that she is discouraged by her lack of mobility. Family History: Unchanged from Admission Social History: Unchanged from Admission Past Medical History: Unchanged from Admission Objective Active Medications: Acetaminophen (Tylenol Tab*) 650 mg PO Q6H [facility] Atorvastatin Calcium (Lipitor*) 20 mg PO DAILY [facility] Guaifenesin (Mucinex*) 600 mg PO BID [facility] Hydralazine HCl (Apresoline Iv*) 5 mg IV SLOW PU Q6H PRN Hydromorphone HCl (Dilaudid Inj1s*) 0.25 mg IV SLOW PU Q4H PRN Ciprofloxacin/Dextrose (Cipro 400 Mg Ivpremix(*)) 400 mg in 200 mls @ 200 mls/ hr IVPB 1000,2200 [facility]; Protocol Metronidazole/Sodium Chloride (Flagyl 500 Mg Ivpb*) 500 mg in 100 mls @ 100 mls /hr IVPB 0100,0900,1700 [facility] Potassium Chloride/Dextrose (D5w 1/2 Ns Kcl 20 Meq 1000 Ml*) 1,000 mls @ 100 mls/hr IV PER RATE [facility] Fentanyl/Ropivacaine (Fentanyl 2 Mcg/Ml+Ropivacaine 0.1% Epidural*) 250 mls @ 0 mls/hr EPIDURAL Q24H [facility]; Protocol Ketorolac Tromethamine (Toradol Inj*) 15 mg IV PUSH Q6H PRN Ketorolac Tromethamine (Toradol Inj*) 15 mg IV PUSH Q6H [facility] Naloxone HCl (Narcan*) 0.08 mg IV Q2M PRN Ondansetron HCl (Zofran Inj*) 4 mg IV Q4H PRN Oxycodone HCl (Roxycodone Tab*) 5 mg PO Q4H PRN Sodium Chloride (Sodium Chloride 0.65% Nasal [place]*) 1 spray BOTH NARES Q4H PRN Vital Signs: Temp Pulse Resp BP Pulse Ox 98.3 F 80 16 146/75 96 03/21/19 17:13 03/21/19 17:13 03/21/19 17:13 03/21/19 17:13 03/21/19 17:13 Oxygen Devices in Use Now: None Appearance: Pt is sitting up in bed, HOB elevated. She appears comfortable, in no acute distress. Eyes: No Scleral Icterus, PERRLA Ears/Nose/Mouth/Throat: NL Teeth, Lips, Gums, Clear Oropharnyx, Mucous Membranes Moist Neck: NL Appearance and Movements; NL JVP, Trachea Midline Respiratory: Symmetrical Chest Expansion and Respiratory Effort, Clear to Auscultation Cardiovascular: NL Sounds; No Murmurs; No JVD, RRR Abdominal: - - BS in all quadrants; abd without tenderness to light palpation. There is a CDI dressing to the midline. ELIZABETH drain in place with small amount of serosang fluid in bulb. Iliostomy with good production. Extremities: No Clubbing, Cyanosis, - - Some edema to R arm at previous IV site ; no erythema, tenderness. 4/5 L hip flexion, L knee extension. Sensation decreased to L miguel-patellar area at medial, inferior, superior aspect; intact laterally. Neurological: Alert and Oriented x 3 Result Diagrams: 03/21/19 05:32 03/20/19 05:46 Additional Lab and Data: Lab Results 03/15/19 03/15/19 03/15/19 Range/Units 13:30 13:30 13:30 WBC 14.7 H (3.5-10.8) 10^3/uL RBC 4.24 (3.70-4.87) 10^6 /uL Hgb 12.3 (12.0-16.0) g/dL Hct 37 (35-47) % MCV 88 (80-97) fL MCH 29 (27-31) pg MCHC 33 (31-36) g/dL RDW 14 (10-15) % Plt Count 557 H (150-450) 10^3/uL MPV 7.4 (7.4-10.4) fL Neut % (Auto) 94.7 % Lymph % (Auto) 2.6 % [place] % (Auto) 2.3 % Eos % (Auto) 0.0 % Baso % (Auto) 0.4 % Absolute Neuts (auto) 13.9 H (1.5-7.7) 10^3/ul Absolute Lymphs (auto) 0.4 L (1.0-4.8) 10^3/ul Absolute Monos (auto) 0.3 (0-0.8) 10^3/ul Absolute Eos (auto) 0.0 (0-0.6) 10^3/ul Absolute Basos (auto) 0.1 (0-0.2) 10^3/ul Absolute Nucleated RBC 0.0 10^3/ul Nucleated RBC % 0.0 Sodium 137 (135-145) mmol/L Potassium 3.4 L (3.5-5.0) mmol/L Chloride 100 L (101-111) mmol/L Carbon Dioxide 28 (22-32) mmol/L Anion Gap 9 (2-11) mmol/L BUN 21 (6-24) mg/dL Creatinine 0.84 (0.51-0.95) mg/dL Est GFR ( Amer) 77.8 (>60) Est GFR (Non-Af Amer) 64.3 (>60) BUN/Creatinine Ratio 25.0 H (8-20) Glucose 177 H (70-100) mg/dL Lactic Acid 1.2 (0.5-2.0) mmol/L Calcium 9.2 (8.6-10.3) mg/dL Total Bilirubin 0.40 (0.2-1.0) mg/dL AST 15 (13-39) U/L ALT 10 (7-52) U/L Alkaline Phosphatase 64 (34-104) U/L C-Reactive Protein 36.00 H (<8.01) mg/L Total Protein 7.2 (6.4-8.9) g/dL Albumin 4.1 (3.2-5.2) g/dL Globulin 3.1 (2-4) g/dL Albumin/Globulin Ratio 1.3 (1-3) Lipase 25 (11.0-82.0) U/L Assess/Plan/Problems-Billing Assessment: Patient is an 88yo female with a PMH for HTN, HLD, here with large bowel obstruction with mass and high likelihood of malignancy, s/p colectomy 03/17. - Patient Problems (1) Weakness Comment: -Pt with weakness of hip flexion, knee extension on L; appears mildly improved -Also with decreased miguel-patellar sensation -Consulted anaesthesiology; suspicion that this is epidural vs. residual nerve block vs. injury from prolonged surgical positioning -Will continue to monitor for improvement -Continue PT, OT (2) Intestinal mass Comment: - Large bowel mass, fully obstructing on sigmoidoscopy; s/p colectomy 03/17 - Pathology shows invasive adenocarcinoma - Questionable liver mets, pending pathology of primary mass - CT shows no mets in lungs - Appreciate GI input and Surgery input - Oncology consulted, recommend repeat liver US, CEA in 2 weeks and follow outpatient with oncology - Advance diet slowly - Continue antibiotics per surgery - Ileostomy in place (3) HTN (hypertension) Comment: - Normotensive - Has not required hydralazine - Will continue to hold losartan/HCTZ - Continue to monitor need for restart of home medications (4) HLD (hyperlipidemia) Comment: - Continue lipitor (5) DVT prophylaxis Comment: - Hold lovenox at this time, SCDs (6) Full code status Status and Disposition: Inpatient. S/p exploratory lap and colectomy for obstructing colon mass.
[2019-03-22] MEDS: Ondansetron INJ* 2 MG/ML VIAL IV PRN ×2 (00:15→08:39)
[2019-03-22] MEDS: metroNIDAZOLE IV 500 MG/100ML* 500 MG/100 ML BAG IVPB SCH ×3 (01:12→17:37)
[2019-03-22] MEDS: Acetaminophen TAB* 325 MG PO SCH ×4 (01:52→20:56)
[2019-03-22] MEDS: Ketorolac INJ* 15 MG/ML 1 ML VIAL IV PUSH SCH ×4 (04:16→23:30)
[2019-03-22 07:16] LABS: ABS Basophils 0.1 10^3/ul (0-0.2); ABS Eosinophils 0.4 10^3/ul (0-0.6); ABS Lymphocytes 1.4 10^3/ul (1.0-4.8); ABS Neutrophils 7.8 10^3/ul (1.5-7.7); Eosinophil % 3.6 %; Hematocrit 29 % (35-47); Hemoglobin 9.6 g/dL (12.0-16.0); Lymphocyte % 12.9 %; Mean Corpuscular HGB Conc 34 g/dL (31-36); Mean Corpuscular Hemoglobin 30 pg (27-31); Mean Corpuscular Volume 88 fL (80-97); Mean Platelet Volume 6.7 fL (7.4-10.4); Platelet Count 477 10^3/uL (150-450); Red Blood Count 3.26 10^6 /uL (3.70-4.87); Red Cell Distribution Width 14 % (10-15); White Blood Count 10.5 10^3/uL (3.5-10.8)
[2019-03-22 07:29] LABS: Albumin 2.8 g/dL (3.2-5.2); Albumin/Globulin Ratio 1.4 (1-3); BUN/Creatinine Ratio 11.3 (8-20); Calcium 8.1 mg/dL (8.6-10.3); EGFR African American 94.4 (>60); EGFR Non-African American 78.1 (>60); Magnesium 1.7 mg/dL (1.9-2.7); Phosphorus 2.5 mg/dL (2.5-5.0); Potassium 4.4 mmol/L (3.5-5.0); Total Bilirubin 0.2 mg/dL (0.2-1.0); Total Protein 4.8 g/dL (6.4-8.9)
[2019-03-22] MEDS ORDERED: Magnesium Sulfate IV* 3 GM in NS 0.9% 100 ML* 100 ML IVPB ONE (08:30)
[2019-03-22] MEDS: guaiFENesin ER TAB 600 MG PO SCH ×2 (08:39→23:27)
[2019-03-22] MEDS: Atorvastatin* 20 MG TAB PO SCH (08:39)
[2019-03-22] MEDS: Ciprofloxacin 400MG IVPREMIX(* 400 MG/200 ML BAG IVPB SCH ×2 (10:08→23:21)
--- NOTE | 2019-03-22 12:08 | PN ---
Progress Note - Progress Note Date of Service: 03/22/19 SOAP: Subjective: Comfortable in chair.Ambulated this morning with assist of RN with walker and gait belt. Continues to C/O inability to lift left leg poor appetite, wants regular diet. tolerating current low fiber diet, does have some nausea too, responds well to zofran [] Objective: Temp Pulse Resp BP Pulse Ox 98.1 F 85 16 153/77 98 03/22/19 11:54 03/22/19 11:54 03/22/19 11:54 03/22/19 11:54 03/22/19 11:54 Sodium 139 mmol/L (135-145) 03/22/19 06:43 Potassium 4.4 mmol/L (3.5-5.0) 03/22/19 06:43 BUN 8 mg/dL (6-24) 03/22/19 06:43 Creatinine 0.71 mg/dL (0.51-0.95) 03/22/19 06:43 Calcium 8.1 mg/dL (8.6-10.3) L 03/22/19 06:43 Magnesium 1.7 mg/dL (1.9-2.7) L 03/22/19 06:43 AST 20 U/L (13-39) 03/22/19 06:43 ALT 12 U/L (7-52) 03/22/19 06:43 Intake & Output 03/21/19 03/22/19 03/22/19 22:59 06:59 14:59 Intake Total 2991 786 Output Total 1230 790 300 Balance 1761 -4 -300 Chest: CTA B/L CVS: RRR ABD: Midline incision with Vac Dressing in place. Left side ELIZABETH with serosanguinous output Right Stoma red and healthy looking. Thick brown output in ostomy bag EXT: Calves soft B/L LLE unable to lift left thigh more than a few inches, can't extend lower leg, no straight leg raise [] Assessment: As Above, POD 5 S/P LAR with loop ileostomy, Stable [] Plan: Consult Dr Gloria Neurology regarding post op LLE dececit, begin Heparin dvt prophylaxis, ^ diet to regular, Incentive spirometry, Encouraged deap breathing, PT Daily, Ambulate with assist, Protonix daily. Plan Vac off and ELIZABETH out on Wednesday, Rehab likely on D/C Pt also seen and examined by Dr Concepcion. Daughter present during exam. All questions were answered []
[2019-03-22] MEDS: Pantoprazole TAB * 40 MG TAB PO SCH (12:32)
[2019-03-22] MEDS: Heparin VIAL(*) 5000 UNITS/ML VIAL (FIVE THOUSAND) SUBCUT SCH ×2 (12:32→20:45)
--- NOTE | 2019-03-22 12:41 | PN ---
Subjective Date of Service: 03/22/19 Interval History: Patient and daughter, Lauro, in room. Pt states she is feeling frequently nauseas, which is impeding her ability to eat. She feels that this may partially be related to anxiety. She has no associated vomiting. She denies abdominal pain, but endorses occasional abdominal discomfort. She states she walked into [facility] today, furthest she has gone since operation, which she is excited about. She continues to have numbness around the L knee, difficulty with L hip flexion, L knee extension. She has no other complaints today. Family History: Unchanged from Admission Social History: Unchanged from Admission Past Medical History: Unchanged from Admission Objective Active Medications: Acetaminophen (Tylenol Tab*) 650 mg PO Q6H [facility] Atorvastatin Calcium (Lipitor*) 20 mg PO DAILY [facility] Guaifenesin (Mucinex*) 600 mg PO BID [facility] HCTZ/Losartan Potassium (Hyzaar 100/25 (Nf)) 1 tab PO DAILY [facility] Heparin Sodium (Porcine) (Heparin Vial(*)) 5,000 units SUBCUT Q8H [facility] Hydromorphone HCl (Dilaudid Inj1s*) 0.25 mg IV SLOW PU Q4H PRN Ciprofloxacin/Dextrose (Cipro 400 Mg Ivpremix(*)) 400 mg in 200 mls @ 200 mls/ hr IVPB 1000,2200 [facility]; Protocol Metronidazole/Sodium Chloride (Flagyl 500 Mg Ivpb*) 500 mg in 100 mls @ 100 mls /hr IVPB 0100,0900,1700 [facility] Fentanyl/Ropivacaine (Fentanyl 2 Mcg/Ml+Ropivacaine 0.1% Epidural*) 250 mls @ 0 mls/hr EPIDURAL Q24H [facility]; Protocol Ketorolac Tromethamine (Toradol Inj*) 15 mg IV PUSH Q6H PRN Ketorolac Tromethamine (Toradol Inj*) 15 mg IV PUSH Q6H [facility] Naloxone HCl (Narcan*) 0.08 mg IV Q2M PRN Oxycodone HCl (Roxycodone Tab*) 5 mg PO Q4H PRN Pantoprazole Sodium (Protonix Tab*) 40 mg PO DAILY [facility] Pharmacy Profile Note (Scopolamine Patch Remove*) 1 note PATCH OFF Q72H [facility] Scopolamine (Transderm-Scop 1.5 Mg Patch*) 1 patch TRANSDERM Q72H [facility] Sodium Chloride (Sodium Chloride 0.65% Nasal [place]*) 1 spray BOTH NARES Q4H PRN Vital Signs: Temp Pulse Resp BP Pulse Ox 98.1 F 85 16 153/77 98 03/22/19 11:54 03/22/19 11:54 03/22/19 11:54 03/22/19 11:54 03/22/19 11:54 Oxygen Devices in Use Now: None Appearance: Anxious appearing older white female sitting in chair, LE at floor. She appears comfortable, in no acute distress. Eyes: No Scleral Icterus, PERRLA Ears/Nose/Mouth/Throat: NL Teeth, Lips, Gums, Clear Oropharnyx, Mucous Membranes Moist Neck: NL Appearance and Movements; NL JVP, Trachea Midline Respiratory: Symmetrical Chest Expansion and Respiratory Effort, Clear to Auscultation Cardiovascular: NL Sounds; No Murmurs; No JVD, RRR, - - Trace b/l LE edema Abdominal: - - BS hypoactive throughout. ML incision covered with CDI dressing. R iliostomy with good output. L sided ELIZABETH drain with trace serosang drainage on dressing and serosang fluid in ELIZABETH drain. Abd somewhat distended, soft. Extremities: No Clubbing, Cyanosis Neurological: Alert and Oriented x 3, - - 4/5 L hip flexion, L knee extension; other extremities with 5/5 strength. Decreased sensation to L peripatellar region; intact laterally. Result Diagrams: 03/22/19 06:43 03/22/19 06:43 Additional Lab and Data: Lab Results 03/15/19 03/15/19 03/15/19 Range/Units 13:30 13:30 13:30 WBC 14.7 H (3.5-10.8) 10^3/uL RBC 4.24 (3.70-4.87) 10^6 /uL Hgb 12.3 (12.0-16.0) g/dL Hct 37 (35-47) % MCV 88 (80-97) fL MCH 29 (27-31) pg MCHC 33 (31-36) g/dL RDW 14 (10-15) % Plt Count 557 H (150-450) 10^3/uL MPV 7.4 (7.4-10.4) fL Neut % (Auto) 94.7 % Lymph % (Auto) 2.6 % [place] % (Auto) 2.3 % Eos % (Auto) 0.0 % Baso % (Auto) 0.4 % Absolute Neuts (auto) 13.9 H (1.5-7.7) 10^3/ul Absolute Lymphs (auto) 0.4 L (1.0-4.8) 10^3/ul Absolute Monos (auto) 0.3 (0-0.8) 10^3/ul Absolute Eos (auto) 0.0 (0-0.6) 10^3/ul Absolute Basos (auto) 0.1 (0-0.2) 10^3/ul Absolute Nucleated RBC 0.0 10^3/ul Nucleated RBC % 0.0 Sodium 137 (135-145) mmol/L Potassium 3.4 L (3.5-5.0) mmol/L Chloride 100 L (101-111) mmol/L Carbon Dioxide 28 (22-32) mmol/L Anion Gap 9 (2-11) mmol/L BUN 21 (6-24) mg/dL Creatinine 0.84 (0.51-0.95) mg/dL Est GFR ( Amer) 77.8 (>60) Est GFR (Non-Af Amer) 64.3 (>60) BUN/Creatinine Ratio 25.0 H (8-20) Glucose 177 H (70-100) mg/dL Lactic Acid 1.2 (0.5-2.0) mmol/L Calcium 9.2 (8.6-10.3) mg/dL Total Bilirubin 0.40 (0.2-1.0) mg/dL AST 15 (13-39) U/L ALT 10 (7-52) U/L Alkaline Phosphatase 64 (34-104) U/L C-Reactive Protein 36.00 H (<8.01) mg/L Total Protein 7.2 (6.4-8.9) g/dL Albumin 4.1 (3.2-5.2) g/dL Globulin 3.1 (2-4) g/dL Albumin/Globulin Ratio 1.3 (1-3) Lipase 25 (11.0-82.0) U/L Assess/Plan/Problems-Billing Assessment: Patient is an 88yo female with a PMH for HTN, HLD, here with large bowel obstruction with mass and high likelihood of malignancy, s/p colectomy 1004. - Patient Problems (1) Weakness Comment: -Pt with weakness of hip flexion, knee extension on L; appears mildly improved -Also with decreased miguel-patellar sensation -Consulted anaesthesiology; suspicion that this is epidural vs. residual nerve block vs. injury from prolonged surgical positioning -Consult placed to neurology -Continue PT, OT (2) Intestinal mass Comment: - Large bowel mass, fully obstructing on sigmoidoscopy; s/p colectomy 03/17 - Pathology shows invasive adenocarcinoma - Questionable liver mets, pending pathology of primary mass - CT shows no mets in lungs - Appreciate GI input and Surgery input - Oncology consulted, recommend repeat liver US, CEA in 2 weeks and follow outpatient with oncology - Advance diet slowly - Continue antibiotics per surgery - Ileostomy in place (3) Nausea Comment: -Nausea leading to decreased appetite -Scop patch ordered -Zofran ACHS to help with appetite (4) HTN (hypertension) Comment: - Normotensive - Continue Losartan/HCTZ (5) HLD (hyperlipidemia) Comment: - Continue lipitor (6) DVT prophylaxis Comment: - Hold lovenox at this time, SCDs (7) Full code status Status and Disposition: Inpatient. S/p exploratory lap and colectomy for obstructing colon mass.
[2019-03-22] MEDS ORDERED: Scopolamine 1.5 mg* PATCH TRANSDERM SCH (13:00)
[2019-03-22] MEDS: Losartan TAB* 25 MG PO SCH (13:38)
[2019-03-22] MEDS: Hydrochlorothiazide TAB* 25 MG PO SCH (13:38)
[2019-03-22] MEDS: Ondansetron INJ* 2 MG/ML VIAL IV SCH ×2 (16:20→23:20)
--- NOTE | 2019-03-22 18:02 | CONS ---
CONSULTATION REPORT: DATE OF CONSULT:M 03/22/19 PATIENT OF: Dr. Concepcion. HISTORY OF PRESENT ILLNESS: This is an 88-year-old woman I am asked to evaluate for left leg weakness following a procedure 5 days ago for an abdominopelvic mass and also having obstructed bowel. She may also have a metastatic disease to the liver. She notes following surgery her left leg has been weak and she notes that she is able to walk today, but she needs to lock her leg at the knee in order to stabilize her leg. It is unclear whether she is actually improving versus just knowing how to deal with her weakness. She also has numbness around the knee above and below. She has no back pain. There is no numbness in either foot. Her right leg is fine. There are no new bladder problems. PAST MEDICAL HISTORY: She has history of hypertension, hyperlipidemia. PAST SURGICAL HISTORY: No prior surgery prior to Wednesday's. MEDICATIONS: Include: 1. Hyzaar 100/25 p.o. daily at home. 2. Aspirin 81 mg daily. 3. Lipitor 20 mg daily at home. ALLERGIES: She is allergic to DOXYCYCLINE. FAMILY HISTORY: Mother had esophageal cancer and a history of smoking. SOCIAL HISTORY: She does not smoke and drinks wine with dinner. She had a left anterior resection, creation of loop ileostomy, suture repair of cecum for obstructive colon cancer and this was performed on 03/17/19. PHYSICAL EXAM: Temperature 98.1, pulse 85, respiratory rate 16, blood pressure 153/77. He is alert and oriented with normal speech and comprehension. Cranial nerves II through XII are intact with full extraocular movements and symmetric facies. Tongue midline. No thyroid masses. . Motor exam revealed normal tone and strength in the upper extremities and the right leg. In the left leg, she had 0/5 strength at the left knee with 3/5 strength in the left hip flexors, biceps femoris, gastrocs. Dorsiflexion of her feet were all intact on the left. Toes were downgoing. She had absent left knee jerk, 1+ right knee jerk, present ankle jerks. Chest: Clear. Cardiovascular: Regular rate and rhythm. DIAGNOSTIC STUDIES/LAB DATA: Labs included a white count of 10.5, hematocrit 29 , platelet count 477. Normal BMP other than calcium of 8.1, magnesium 1.7, total protein 4.8. CEA antigen 42.5. IMPRESSION AND PLAN: I discussed at length with Randal and her daughter as well as the anesthesiologist that I was concerned that she has nerve injury causing her left leg weaknesses. This would be in either nerve root or lumbosacral plexopathy. With a history of cancer, I would be concerned about mets to the lumbosacral spine or developing the lumbosacral plexus. I had initially recommended MRI scan of her spine, but she is declining an MRI scan because of severe claustrophobia even after discussing using Valium. I discussed with her that I discussed the above situation with Dr. Concepcion and discussed how important this information would be to take care of her clearly. I would if she had mets to liver that were documented and would provide information, but if she has mets elsewhere, I am not sure what the overall game plan would be and how aggressive approach would be and so I do not want to put her a few more than what is appropriate. I have a call on to Dr. Concepcion and he think unless he had a strong opinion, otherwise I recommend getting at least a CT scan with contrast and then depending on how her leg does and how the rest of her medical history evolved and if need be, we could always obtain an MRI scan under anesthesia. She is reluctant to do that at this point and I told her I would speak to Dr. Concepcion on proceeding along that route at this time. Thank you for sharing her case. [id number]/[facility] #: [id number] ELIANA
[2019-03-23] MEDS: metroNIDAZOLE IV 500 MG/100ML* 500 MG/100 ML BAG IVPB SCH ×2 (01:04→08:51)
[2019-03-23] MEDS: Acetaminophen TAB* 325 MG PO SCH ×4 (02:13→21:10)
[2019-03-23] MEDS: Ketorolac INJ* 15 MG/ML 1 ML VIAL IV PUSH SCH ×2 (04:08→08:50)
[2019-03-23] MEDS: Heparin VIAL(*) 5000 UNITS/ML VIAL (FIVE THOUSAND) SUBCUT SCH ×3 (04:10→23:00)
[2019-03-23] MEDS ORDERED: Magnesium Sulfate 2 GM IV* 2 GM/50 ML BAG IVPB ONE (07:09)
[2019-03-23] MEDS: Ondansetron INJ* 2 MG/ML VIAL IV SCH ×4 (07:21→21:10)
[2019-03-23] MEDS: Hydrochlorothiazide TAB* 25 MG PO SCH (08:48)
[2019-03-23] MEDS: Losartan TAB* 25 MG PO SCH (08:48)
[2019-03-23] MEDS: Pantoprazole TAB * 40 MG TAB PO SCH (08:49)
[2019-03-23] MEDS: guaiFENesin ER TAB 600 MG PO SCH ×2 (08:49→21:09)
[2019-03-23] MEDS: Atorvastatin* 20 MG TAB PO SCH (08:49)
[2019-03-23] MEDS: Ciprofloxacin 400MG IVPREMIX(* 400 MG/200 ML BAG IVPB SCH (10:07)
--- NOTE | 2019-03-23 10:55 | PN ---
Subjective Date of Service: 03/23/19 Interval History: Patient is feeling ongoing low level nausea, but is able to tolerate oral intake. Patient has minor abdominal pain. Patient has no vomited but has no appetite. Patient denies F/C, CP, SOB, diarrhea, palpitations. Patient has been having increased strength in her LLE and improved sensation. Patient is apprehensive that all her medications has been contributing to her nausea and would like to discontinue some if able. Family History: Unchanged from Admission Social History: Unchanged from Admission Past Medical History: Unchanged from Admission Objective Active Medications: Acetaminophen (Tylenol Tab*) 650 mg PO Q6H REPLACED BY [facility] Last Admin: 03/23/19 08:48 Dose: 650 mg Atorvastatin Calcium (Lipitor*) 20 mg PO DAILY REPLACED BY [facility] Last Admin: 03/23/19 08:49 Dose: 20 mg Guaifenesin (Mucinex*) 600 mg PO BID REPLACED BY [facility] Last Admin: 03/23/19 08:49 Dose: 600 mg Heparin Sodium (Porcine) (Heparin Vial(*)) 5,000 units SUBCUT Q8H REPLACED BY [facility] Last Admin: 03/23/19 04:10 Dose: 5,000 units Hydrochlorothiazide (Hydrodiuril Tab*) 25 mg PO DAILY REPLACED BY [facility] Last Admin: 03/23/19 08:48 Dose: 25 mg Ciprofloxacin/Dextrose (Cipro 400 Mg Ivpremix(*)) 400 mg in 200 mls @ 200 mls/ hr IVPB 1000,2200 REPLACED BY [facility]; Protocol Last Admin: 03/23/19 10:07 Dose: 200 mls/hr Metronidazole/Sodium Chloride (Flagyl 500 Mg Ivpb*) 500 mg in 100 mls @ 100 mls /hr IVPB 0100,0900,1700 REPLACED BY [facility] Last Admin: 03/23/19 08:51 Dose: 100 mls/hr Ketorolac Tromethamine (Toradol Inj*) 15 mg IV PUSH Q6H PRN PRN Reason: PAIN - MILD Last Admin: 03/20/19 22:18 Dose: 15 mg Ketorolac Tromethamine (Toradol Inj*) 15 mg IV PUSH Q6H REPLACED BY [facility] Last Admin: 03/23/19 08:50 Dose: 15 mg Losartan Potassium (Cozaar Tab*) 100 mg PO DAILY REPLACED BY [facility] Last Admin: 03/23/19 08:48 Dose: 100 mg Ondansetron HCl (Zofran Inj*) 4 mg IV ACHS REPLACED BY [facility] Last Admin: 03/23/19 07:21 Dose: 4 mg Oxycodone HCl (Roxycodone Tab*) 5 mg PO Q4H PRN PRN Reason: PAIN - SEVERE Pantoprazole Sodium (Protonix Tab*) 40 mg PO DAILY REPLACED BY [facility] Last Admin: 03/23/19 08:49 Dose: 40 mg Pharmacy Profile Note (Scopolamine Patch Remove*) 1 note PATCH OFF Q72H REPLACED BY [facility] Scopolamine (Transderm-Scop 1.5 Mg Patch*) 1 patch TRANSDERM Q72H REPLACED BY [facility] Last Admin: 03/22/19 13:36 Dose: 1 patch Sodium Chloride (Sodium Chloride 0.65% Nasal [place]*) 1 spray BOTH NARES Q4H PRN PRN Reason: secretions Vital Signs - 8 hr 03/23/19 03/23/19 03/23/19 04:04 07:24 07:32 Temperature 98.8 F 97.7 F Pulse Rate 64 59 Respiratory 22 18 16 Rate Blood Pressure 128/59 122/59 (mmHg) O2 Sat by Pulse 96 97 Oximetry Oxygen Devices in Use Now: None Appearance: Patient is an 88yo female who appears younger than stated age and is sitting in the bed in [facility]. Eyes: No Scleral Icterus, PERRLA Ears/Nose/Mouth/Throat: NL Teeth, Lips, Gums, Clear Oropharnyx, Mucous Membranes Moist Neck: NL Appearance and Movements; NL JVP, Trachea Midline Respiratory: Symmetrical Chest Expansion and Respiratory Effort, Clear to Auscultation Cardiovascular: NL Sounds; No Murmurs; No JVD, RRR, No Edema Abdominal: - - Ileostomy in place, ELIZABETH drain in place with drainage from the sponge. Wound vac in place and functioning appropriately. Lymphatic: No Cervical Adenopathy Extremities: No Edema, No Clubbing, Cyanosis Skin: No Rash or Ulcers, No Nodules or Sclerosis Neurological: Alert and Oriented x 3, - - 4-/5 strength in proximal LLE. 4+/5 in Distal LLE. CN II-XII intact. Result Diagrams: 03/22/19 06:43 03/22/19 06:43 Additional Lab and Data: Lab Results Assess/Plan/Problems-Billing Assessment: Patient is an 88yo female with a PMH for HTN, HLD, here with large bowel obstruction with mass and high likelihood of malignancy, s/p colectomy 10/04. - Patient Problems (1) Weakness Current Visit: Yes Status: Acute Code(s): R53.1 - WEAKNESS SNOMED Code(s) : 79947458 Comment: -Pt with weakness of hip flexion, knee extension on L; Per patient is improving daily -Also with decreased miguel-patellar sensation, improving as well -Consulted anaesthesiology; suspicion that this is epidural vs. residual nerve block vs. injury from prolonged surgical positioning - Appreciate Neurology consult, Localized to Nerve root or Lumbar Plexus, Hold off on further imaging at this time due to improvement. -Continue PT, OT, May need placement. (2) Intestinal mass Current Visit: Yes Status: Acute Code(s): K63.89 - OTHER SPECIFIED DISEASES OF INTESTINE SNOMED Code(s): 85266608 Comment: - Large bowel mass, fully obstructing on sigmoidoscopy; s/p colectomy 03/17 - Pathology shows invasive adenocarcinoma - Questionable liver mets, pending pathology of primary mass - CT shows no mets in lungs - Consideration for CT to assess for spinal mets ongoing. - Appreciate GI input and Surgery input - Oncology consulted, recommend repeat liver US, CEA in 2 weeks and follow outpatient with oncology - Advance diet slowly - Continue antibiotics per surgery - Ileostomy in place and functioning properly. - Surgery planning to remove wound vac and Elizabeth tomorrow. (3) HTN (hypertension) Current Visit: Yes Status: Acute Code(s): I10 - ESSENTIAL (PRIMARY) HYPERTENSION SNOMED Code(s): 40704049 Comment: - Normotensive - Continue Losartan/HCTZ (4) HLD (hyperlipidemia) Current Visit: Yes Status: Acute Code(s): E78.5 - HYPERLIPIDEMIA, UNSPECIFIED SNOMED Code(s): 90256859 Comment: - Continue lipitor (5) Nausea Current Visit: Yes Status: Acute Code(s): R11.0 - NAUSEA SNOMED Code(s): 423684942 Comment: -Nausea leading to decreased appetite -Scop patch ordered -Zofran ACHS to help with appetite - EKG to assess QT, could trial alternative anti-emetics if QTc WNL (6) DVT prophylaxis Current Visit: Yes Status: Acute Code(s): Z29.9 - ENCOUNTER FOR PROPHYLACTIC MEASURES, UNSPECIFIED SNOMED Code(s): 138469910 Comment: - Heparin SubQ (7) Full code status Current Visit: Yes Status: Acute Code(s): Z78.9 - OTHER SPECIFIED HEALTH STATUS SNOMED Code(s): 254772654 Status and Disposition: Inpatient. S/p exploratory lap and colectomy for obstructing colon mass.
--- NOTE | 2019-03-23 11:49 | PN ---
PROGRESS NOTE: DATE OF VISIT: 03/23/19 PATIENT OF: Dr. Concepcion. HISTORY OF PRESENT ILLNESS: This is a neurological followup on this 88-year- old woman with left leg weakness. She has been walking today and feeling stronger, but her knee still jammie and she still has her numbness. MEDICATIONS: Include: 1. Lipitor 20 mg daily. 2. Cipro 400 mg b.i.d. 3. Mucinex 600 mg b.i.d. 4. HydroDIURIL 25 mg daily. 5. Cozaar 100 mg daily. 6. Flagyl 500 mg 3 times a day. 7. Zofran 4 mg as needed. 8. Pain meds. 9. Protonix 40 mg daily. PHYSICAL EXAMINATION: On exam, temperature 97.7, pulse 59, respirations 16, blood pressure 122/59. She is alert and oriented with intact cranial nerve. Chest: Clear. Cardiovascular: Regular rate and rhythm. Strength remains intact in her arms and right leg. In her left leg, her strength is noticeably better and her hip flexor is 4/5 today. Yesterday, it was a 3/5. She still has very limited strength of her quadriceps. Perhaps trace today and her knee jerk is absent. I discussed the case with Dr. Concepcion yesterday and discussed that this is a relatively long time that for her to be so significantly affected, but since she may be improving, we are going to wait and see how she did clinically. It is possible that this represented just stretch on the sciatic rather than mets to nerve. The timing would make more sense for a positional complication, if so , should be expected to get better. She is clearly better today than yesterday , although she still has quite significant weakness in that leg, however, given the day to day the improvement after discussing with the patient, we are holding off evaluating. If the temporal pattern at this point fits the surgical complication then something like mets compressing nerve. Thank you for sharing her care. [id number]/[facility] #: [id number] ELIANA
--- NOTE | 2019-03-23 13:18 | PN ---
Progress Note - Progress Note Date of Service: 03/23/19 SOAP: Subjective: Pt seen and examined today ( and the last 2 days but notes written by supporting staff). Ambulated today together no appetite, some nausea, ate a hamburger last night case d/w neurology and anesth yesterday Objective: Temp Pulse Resp BP Pulse Ox 97.6 F 77 17 131/71 100 03/23/19 11:31 03/23/19 11:31 03/23/19 11:31 03/23/19 11:31 03/23/19 11:31 Intake & Output 03/22/19 03/23/19 03/23/19 22:59 06:59 14:59 Intake Total 205 599 Output Total 1050 430 320 Balance -1050 -225 279 a and o x3, nad lungs clear abdo: soft/ ND/ NT vac dressing in place ELIZABETH serosang ileostomy semi formed output and gas ext: no swelling, decreased motor at LLE, but improved compared to yesterday Path reviewed T3n1 and discussed with pt and pt's daughter Assessment: POD 6 partial colectomy, LLE weakness likely nerve related but with improvement Plan: [dressing to be taken down tomorrow I recommend short term rehab No CT scan of pelvis at this time PT d/c abx
[2019-03-24] MEDS: Acetaminophen TAB* 325 MG PO SCH ×3 (02:18→13:03)
[2019-03-24 06:20] LABS: ABS Basophils 0.1 10^3/ul (0-0.2); ABS Eosinophils 0.4 10^3/ul (0-0.6); ABS Lymphocytes 1.2 10^3/ul (1.0-4.8); ABS Monocytes 1.1 10^3/ul (0-0.8); ABS Neutrophils 6.1 10^3/ul (1.5-7.7); Eosinophil % 4.2 %; Hematocrit 28 % (35-47); Hemoglobin 9.1 g/dL (12.0-16.0); Lymphocyte % 13.3 %; Mean Corpuscular HGB Conc 33 g/dL (31-36); Mean Corpuscular Hemoglobin 29 pg (27-31); Mean Corpuscular Volume 88 fL (80-97); Mean Platelet Volume 6.9 fL (7.4-10.4); Platelet Count 428 10^3/uL (150-450); Red Blood Count 3.14 10^6 /uL (3.70-4.87); Red Cell Distribution Width 15 % (10-15); White Blood Count 8.7 10^3/uL (3.5-10.8)
[2019-03-24 06:39] LABS: Calcium 8.1 mg/dL (8.6-10.3); EGFR African American 75.7 (>60); EGFR Non-African American 62.6 (>60); Magnesium 2.1 mg/dL (1.9-2.7); Potassium 4.5 mmol/L (3.5-5.0)
[2019-03-24] MEDS ORDERED: Heparin VIAL(*) 5000 UNITS/ML VIAL (FIVE THOUSAND) SUBCUT SCH (07:30)
[2019-03-24] MEDS: guaiFENesin ER TAB 600 MG PO SCH (08:13)
[2019-03-24] MEDS: Losartan TAB* 25 MG PO SCH (08:13)
[2019-03-24] MEDS: Atorvastatin* 20 MG TAB PO SCH (08:13)
[2019-03-24] MEDS: Pantoprazole TAB * 40 MG TAB PO SCH (08:13)
[2019-03-24] MEDS: Hydrochlorothiazide TAB* 25 MG PO SCH (08:13)
[2019-03-24] MEDS: Ondansetron INJ* 2 MG/ML VIAL IV SCH (08:14)
[2019-03-24] MEDS ORDERED: PROCHLORPERAZINE INJ 5 MG/ML 2 ML VIAL IV PRN (09:04)
--- NOTE | 2019-03-24 10:15 | PN ---
Progress Note - Progress Note Date of Service: 03/24/19 SOAP: Subjective: Pt comfortable in chair, tolerating diet, ROM LLE improving[] 3 children at bedside Objective: Temp Pulse Resp BP Pulse Ox 98.7 F 59 18 129/62 96 03/24/19 07:39 03/24/19 07:39 03/24/19 07:49 03/24/19 07:39 03/24/19 07:39 Intake & Output 03/23/19 03/24/19 03/24/19 22:59 06:59 14:59 Intake Total 1000 400 Output Total 935 1400 300 Balance 65 -1000 -300 PE:[] Chest: CTA ABD: soft, ND/NT thick brown stool in ostomy appliance Vac dressing removed, wound with linda C/D/I ELIZABETH seosang Assessment: Stable with improvement of LLE weakness improving[] Plan: Vac dressing was removed, leave incision open to air ELIZABETH was removed, dressing placed Ostomy appliance was changed OK for tx to rehab later today per Dr Concepcion Follow up in office, Appt made for Wednesday03/28/19 at 10:[address] Concepcion for staple removal continue PT for LLE weakness F/U with oncology Patient was also seen by, and examined by Dr Concepcion all questions were answered []
--- NOTE | 2019-03-24 10:50 | PN ---
PROGRESS NOTE: DATE OF VISIT: 03/24/19 PATIENT OF: Dr. Concepcion. HISTORY OF PRESENT ILLNESS: This is a neurological followup on this 88-year- old woman who has a weak left leg following surgery a week ago. She states she is fair to middling, but when I test her, she notices as well as I that her leg is clearly better from yesterday. She has no other new complaints. MEDICATIONS: Include: 1. Lipitor 20 mg daily. 2. Mucinex 600 b.i.d. 3. Hydrochlorothiazide 25 mg daily. 4. Cozaar 100 mg daily. 5. Oxycodone p.r.n. 6. Protonix 40 mg daily. PHYSICAL EXAMINATION: On exam, temperature 98.7, pulse 59, respirations 18, blood pressure 129/62. She is alert and oriented with normal speech and comprehension. Cranial nerves II through XII are intact. Motor exam revealed a normal tone, strength in her extremities other than her left leg. Today, she for the first time using her left quadriceps with power, she has at least 4-5/5 strength in her left quadriceps Her hip flexion on the left is 5-/5. Her plantarflexion and dorsiflexion remain strong. She also has present knee jerk on that side now. I can get it as trace, but it is a clear trace and on the other side she has a 1+ reflex. ASSESSMENT AND PLAN: I discussed with her that her leg is clearly improving. Both her hip flexors, which have been improving are again improved today and her quadriceps, which were just beginning to show some strength yesterday are clearly significantly improved today. This is consistent with nerve irritation at the time of surgery making a good improvement and it is likely that further improvement will be present. It is unclear whether she will have complete resolution, although I would be cautiously optimistic that she will make a complete recovery here. If still has concerns, I will be glad to see her back in the future. I discussed with them that she is making quick progress now, but it is unclear whether progress in the future will be slower and I will be glad to see as need arises. Thank you for sharing her case. [id number]/[facility] #: [id number] ELIANA
[2019-03-24 11:54] VITALS: BP 128/56
--- NOTE | 2019-03-24 20:22 | DS ---
CC: Dr. Claudette Wright; Dr. Cornel Concepcion; Dr. Gabriel Dumont * DISCHARGE SUMMARY: DATE OF ADMISSION: 03/15/19 DATE OF DISCHARGE: 03/24/19 ATTENDING PROVIDER: Selin Roach MD * (DICTATED BY TAMMY CATES) PRIMARY CARE PROVIDER: Dr. Claudette Wright. CONSULTING GENERAL SURGEON: Dr. Cornel Concepcion. CONSULTING ONCOLOGIST: Dr. Gabriel Dumont. PRIMARY DISCHARGE DIAGNOSES: 1. Large bowel obstruction. 2. Invasive adenocarcinoma, status post resection, colectomy with ileostomy creation. 3. Liver nodules. 4. Nerve irritation due to spinal anesthesia, improving. SECONDARY DISCHARGE DIAGNOSES: 1. Hypertension. 2. Hyperlipidemia. STUDIES DONE WHILE IN THE HOSPITAL: Abdomen x-ray from 03/15/19 read as diffuse gaseous distension and dilatation of the colon. Differential includes colonic pseudoobstruction versus low colonic obstruction, recommended consideration and correlation with cross-sectional imaging of the abdomen. Abdomen and pelvis CT from 03/15/19 read as proximally the colon is dilated up to 8 cm and exhibits air-fluid levels. There is an ill-defined stenosis at the junction of the sigmoid colon and rectum, but is poorly defined in the absence of oral contrast. Differential includes diverticulitis or possible malignant obstruction or sigmoid diverticulosis. Subcentimeter hypoattenuating foci in the liver are unchanged when compared to 02/24/19 CT examination, calcified vasculopathy noted in the iliac arteries . Surgical specimen from the colon interpreted as invasive adenocarcinoma moderately differentiated. Abdomen x-ray from 03/17/19 read as again noted diffuse distension of the colon with dilatation of the proximal colon similar to previous CT examination. Surgical specimen intraoperatively shows invasive adenocarcinoma of the colon with moderately differentiated histologic grade invading into the pericolonic adipose tissue present, small vessel lymphovascular invasion, 1 of 19 lymph nodes was positive for metastatic carcinoma, histologic stage [id number]. Chest CT from 03/18/19 read as no evidence of thoracic metastatic disease. Small new bilateral dependent pleural effusions with partial atelectasis, free air likely postoperative, no injury to liver, resolution of bowel dilatation in the field of view when compared to recent prior examination. Bilateral subcutaneous edema suspicious for third-spacing. 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 EKG from 03/23/19 read as normal sinus rhythm, normal axis. No ST-segment elevation or depression. No hypertrophy or enlargement. QTc 429, rate of 73. MEDICATIONS AT DISCHARGE: 1. Multivitamin 1 tab p.o. daily. 2. Hyzaar 100/25 one tab p.o. daily. 3. Atorvastatin 20 mg p.o. daily. 4. Tylenol 650 mg p.o. q.6 hours as needed. 5. Saline nasal spray 1 spray both nares q.4 hours as needed. 6. Scopolamine 1 patch transdermally q.72 hours as needed. 7. Compazine 5 mg p.o. q.6 hours as needed. New medications at discharge: 1. Tylenol. 2. Saline. 3. Scopolamine. 4. Compazine. Medication discontinued at discharge: Aspirin 81 mg p.o. daily. HOSPITAL COURSE: This is a brief summary of the patient's presentation. For more details, please see the history and physical from Iqra Agarwal NP , on 03/15/19. In brief, the patient is an 88-year-old female with past medical history significant for the above, who was in generally good health until she had an outpatient CT of her abdomen due to nondescript abdominal pain on 02/24/19, which showed diverticulosis, fatty infiltration of the liver, atherosclerosis, large amount of stool throughout the colon, no acute CT abdomen and pelvis pathology. The patient's symptoms of abdominal pain and nausea worsened since that time, particularly over the 24 hours before her admission. The patient came into the emergency department and had a CT scan as above with concern for malignant obstruction. The patient's blood work on admission showed an elevated white blood cell count, elevated platelet level, slightly elevated glucose. No other significant findings. The patient underwent a flexible sigmoidoscopy with Dr. Leoncio So on 03/16/19, which showed a large entirely obstructing mass of the colon, which was not able to have the scope passed beyond it. The patient had a CEA, which was 42.5. The patient was seen in consultation by Dr. Cornel Concepcion of Surgery on 03/16/19 and surgery was planned for 03/17/19, which was performed. The patient did well intraoperatively. The patient had a spinal anesthesia and an epidural postoperatively for pain, which did a very good job in controlling her pain. The patient had a chest CT read as above showing no metastases. The patient had a concern for metastases in her liver, but these were not definitive. The patient was seen in consultation by Dr. Gabriel Dumont of Oncology, who did not recommend any immediate treatment and a repeat ultrasound in 2 weeks from as well as a repeat CEA tumor marker to assess for extent of tumor burden after resection. The patient postoperatively had weakness in her left leg, which persisted postoperatively. The patient was seen in consultation by Dr. Paco Keating and Dr. Juan Gloria of Orthopedics and Neurology respectively, who believe this was related to nerve root or lumbosacral plexopathy with a possibility of this being related to metastatic disease. The patient at that time declined a MRI and a CT scan of this area was considered, but not performed due to likely low diagnostic yield and a low index suspicion for metastatic disease. Strength in the patient's leg improved significantly in the last several days of her hospitalization. The patient initially had a wound VAC placed on her surgical incision. This was able to be removed on 03/24. The patient was able to have her antibiotics discontinued on 03/23/19. The patient had low level nausea, which improved with increased mobility and decrease in her medication burden through the end of her hospitalization. The patient had electrolyte abnormalities, which were repleted during her hospitalization. The patient had very minimal abdominal pain postoperatively. The patient was initially considered for rehabilitation, but improved greatly while in the hospital and was stable and amenable for discharge to home with support from her family and close followup with Surgery, Oncology and her primary care provider, on 03/24/19. PHYSICAL EXAM ON THE DAY OF DISCHARGE: General: The patient is an 88-year-old female, who appears stated age and sitting comfortably in bed, in no acute distress. Vital Signs: At the time of evaluation, temperature 97.8, pulse rate 83, respiratory rate 16, oxygen saturation 99% on room air, blood pressure 128/56. HEENT: Head normocephalic, atraumatic. Sclerae anicteric. No conjunctival injection. Nasal mucosa moist. Oral mucosa moist. No pharyngeal erythema, discharge, or exudate. Neck: Supple, nontender. No lymphadenopathy. No carotid bruits auscultated. No JVD. Cardiac: Regular rate and rhythm. No clicks, murmurs, gallops, or rubs. Pulses are 2+ in the bilateral dorsalis pedis, posterior tibialis, and radial areas. No bilateral lower extremity edema noted. Respiratory: Clear to auscultation bilaterally. No wheezing, rales, or rhonchi. Good air exchange bilaterally. Abdomen: Soft, nontender, nondistended. Bowel sounds present and normoactive in all 4 quadrants. No hepatosplenomegaly. No abdominal bruits auscultated. No hepatojugular reflux. Ostomy in place draining dark stool without blood. Midline incision shows no signs of erythema or discharge. Genitourinary: No suprapubic or CVA tenderness. Skin: Clean, dry, and intact except for above surgical incision. Neuro: Cranial nerves II through XII intact. 3/5 strength with extension of the left knee; 4/5 strength with flexion, abduction, and adduction of the left thigh; 5/5 strength with dorsi and plantarflexion of the left foot. Strength 5/5 in all other muscle groups tested. Decreased sensation to light touch in the left thigh, improved from previous exam per the patient. Psychiatric: Very pleasant and cooperative. DISCHARGE PLAN BY PROBLEM: 1. Invasive adenocarcinoma of the colon with large bowel obstruction, resolved. The patient has had a colectomy and a colostomy with 07/02 lymph nodes found to be positive for metastatic carcinoma. The patient is going to have a repeat liver ultrasound and a CEA before her appointment with Dr. Gabriel Dumont on 05/01/19, at which time she will discuss further options for treatment of her adenocarcinoma. The patient has a very good pre and postoperative functionality and likely be very well able to tolerate treatment for her cancer. The patient should follow up for a wound check with Dr. Cornel Concepcion on 03/27/19 as scheduled. The patient has been instructed on ostomy care and should monitor her ostomy output for blood or other alarming symptoms. The patient should drink plenty of fluids to compensate for increased stool output. The patient should return to the hospital for dehydration, severe abdominal pain, lack of ostomy output, or other alarming symptoms. 2. Left leg weakness. The patient's left leg weakness is improving. This is likely due to irritation from her spinal anesthesia. CT or MRI of the spine is not currently indicated, but if she has worsening in her leg weakness, referral to Neurology and possible CT or MRI of her spine to look for metastases could be indicated. 3. Hypertension. Continue the patient's losartan/hydrochlorothiazide. She is currently normotensive. 4. Hyperlipidemia. Continue the patient's Lipitor. 5. Nausea. This is likely postoperative related to her bowel surgery. Continue the patient's scopolamine and Compazine. CONDITION: Stable. DISPOSITION: Home. TIME SPENT: Approximately 60 minutes was spent on the discharge of this patient , 30 of which was spent [id number] with the patient obtaining history and physical and discussing treatment plan. TAMMY CATES [id number]/CPS #: [id number] ELIANA
[2019-03-25] MEDS ORDERED: Scopolamine PATCH Remove* 1 NOTE MISC PATCH OFF SCH (13:00)
--- NOTE | 2019-03-27 10:09 | CONSULT ---
Consult Consult: 88 yo woman with postoperative weakness and numbness of the left leg. She was discharged home three days ago to the care of her family. I gave her a call today. She answered the phone right away and sounded good. She said that she is up ambulating. She says that her leg still feels numb and weak but is feeling better every day. I reminded her that if it continues to feel that way a few weeks from now that she can call Dr. Gloria and follow up with him. She understood this and thanked me for her care. - Renetta Bliss, DO
== END 2019-03-24 14:40 | disposition home health service (06) | DRG 330 ==
LOC: ED 12:42 → MED 19:15 → SSU 03-17 21:05
PROVIDERS: ADMIT Internal Medicine; ATTEND Internal Medicine
PROC: 0DBN8ZX Excision of Sigmoid Colon, Via Natural or Artificial Opening Endoscopic, Diagnostic (ICD-10-PCS; 2019-03-16)
PROC: 0DBN0ZZ Excision of Sigmoid Colon, Open Approach (ICD-10-PCS; 2019-03-17)
PROC: 0D1B0Z4 Bypass Ileum to Cutaneous, Open Approach (ICD-10-PCS; 2019-03-17)
PROC: 0DQH0ZZ Repair Cecum, Open Approach (ICD-10-PCS; 2019-03-17)
PROC: 0DBP0ZZ Excision of Rectum, Open Approach (ICD-10-PCS; principal; 2019-03-17 13:30)
DX: C19 Malignant neoplasm of rectosigmoid junction (principal); J98.11 Atelectasis; K56.609 Unspecified intestinal obstruction, unspecified as to partial versus complete obstruction; R18.8 Other ascites; C77.2 Secondary and unspecified malignant neoplasm of intra-abdominal lymph nodes; I10 Essential (primary) hypertension; E78.5 Hyperlipidemia, unspecified; E87.6 Hypokalemia; D47.3 Essential (hemorrhagic) thrombocythemia; K76.89 Other specified diseases of liver; M81.0 Age-related osteoporosis without current pathological fracture; R06.02 Shortness of breath; R34 Anuria and oliguria; D64.9 Anemia, unspecified; T88.59XA Other complications of anesthesia, initial encounter; Y83.8 Other surgical procedures as the cause of abnormal reaction of the patient, or of later complication, without mention of misadventure at the time of the procedure; Y92.234 Operating room of hospital as the place of occurrence of the external cause; R11.0 Nausea; F41.9 Anxiety disorder, unspecified; R53.1 Weakness; G58.8 Other specified mononeuropathies; Z80.0 Family history of malignant neoplasm of digestive organs; Z88.1 Allergy status to other antibiotic agents; Z72.89 Other problems related to lifestyle
CPT/HCPCS: 36415; 71260; 74019; 74177; 80048; 80053; 81003; 82378; 83605; 83690; 83735; 84100; 85014; 85018; 85025; 86140; 88305; 88307; 88341; 88342; 93005; 96365; 96372; 96375; 99156; 99284; A9270-GY; A9272-GY; G8978-GP-CK; G8979-GP-CI; G8987-GO-CJ; G8988-GO-CI; J0330; J0744; J1100; J1335; J1644; J1650; J1885; J2250; J2405; J2704; J2795; J3010; J3475; J3480; J3490; Q9967

== ENCOUNTER 2019-05-23 07:30 | Inpatient (IN) | payer MEDICARE ==
--- NOTE | 2019-04-28 17:50 | HP ---
CC: Dr. Claudette Wright; Dr. Gabriel Dumont * PREOPERATIVE HISTORY AND PHYSICAL: DATE OF ADMISSION/SURGERY: 05/23/19 This patient is scheduled for AA admission by Dr. Concepcion on 05/23/19. DATE OF PREOPERATIVE HISTORY AND PHYSICAL EXAMINATION: 04/28/19 ATTENDING PHYSICIAN: Dr. Cornel Concepcion * (dictated by Lorena Garcia, DIANNE) CHIEF COMPLAINT: Reversal of ileostomy. HISTORY OF PRESENT ILLNESS: The patient is an 88-year-old female known to Dr. Concepcion, who is status post low anterior resection with protective ileostomy for rectal cancer on 03/17/19. She was discharged from [facility] on 05/02. 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 She has a fairly good appetite and her energy is improving daily. She has done very well with the care of her ileostomy; she denies any abdominal pain. Her weight has been stable. She was referred to Oncology with Dr. Dumont but she is not very interested in undergoing chemotherapy. 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 The patient recently saw Dr. Concepcion and she is currently scheduled for reversal of ileostomy on 05/23/19. She will take a bowel cleansing prep on the day before surgery consisting of clear liquids and half the usual dose of Colyte. Dr. Concepcion explained the nature of the surgical procedure, the expected hospitalization, relevant risks and benefits and today, I reviewed the physical postoperative care and recovery. The patient has had a chance to ask questions and stated that she understands the information and is satisfied with the answers given to her questions. She will sign surgical consent on the day of surgery. PAST MEDICAL HISTORY: 1. Hypertension. 2. Hyperlipidemia. PAST SURGICAL HISTORY: As described in history of present illness. MEDICATIONS: 1. Atorvastatin 20 mg p.o. daily in the morning. 2. Losartan potassium/hydrochlorothiazide 100/25 mg p.o. daily in the morning. 3. Multivitamin daily. 4. Krill oil p.r.n. 5. Vitamin D3 p.r.n. ALLERGIES: DOXYCYCLINE caused nausea and dizziness. FAMILY HISTORY: The patient's mother had an esophageal cancer, history of smoking; no known anesthesia complications, bleeding tendencies, or clotting disorders. SOCIAL HISTORY: She lives with her son, her [id number] and her granddaughter. She is a nonsmoker. She occasionally drinks a glass of wine. Her daughters are accompanying her to the visit today and are supportive. REVIEW OF SYSTEMS: Constitutional: No fevers, chills, excessive fatigue, or significant weight loss. Her preop weight is 113 pounds. General: No previous anesthesia complications. No history of deep vein thrombosis or pulmonary embolism. No bleeding tendencies. No MRSA infections. Endocrine: No diabetes or thyroid disease. Respiratory: No dyspnea on exertion. No chronic cough. Cardiovascular: No anginal chest pain, palpitations, history of myocardial infarctions or CHF. Gastrointestinal: No nausea, vomiting. No change in ostomy output. No GI bleeding. Genitourinary: No dysuria. Musculoskeletal: She walks with the aid of a walker due to persistent weakness in the left lower extremity specifically occasionally buckling of her left knee thought to be related to sciatic nerve injury and she is in physical therapy. She also reports some numbness on the inner aspect of her left thigh. Otherwise she has good upper body strength and tone. Neurologic: No headache, blurred vision, or areas of focal weakness other than as described in musculoskeletal. Psychiatric: Mild anxiety related to upcoming surgery. No history of depression. PHYSICAL EXAMINATION GENERAL SURVEY: The patient is an 88-year-old female, well developed, well nourished, in no acute distress. VITAL SIGNS: Height 63 inches, weight 113 pounds, body mass index 20, blood pressure of 120/66, pulse 72 and regular, respiratory rate 16, temperature 98 tympanic. SKIN: Warm, dry, and intact. HEENT: Benign. NECK: Supple. No cervical lymphadenopathy. LUNGS: Breath sounds bilaterally clear and equal. BACK: No CVA tenderness. HEART: Regular rate and rhythm. No murmurs or rubs appreciated. ABDOMEN: Well-healed midline surgical scar. Ileostomy with loose light brown stool. The stoma is pink. There is no edema of the stoma. The skin appears to be intact. The patient abdomen is soft, nondistended and nontender throughout. EXTREMITIES: Warm without edema or skin ulceration. PELVIC EXAM: Deferred. RECTAL EXAM: Deferred. NEUROLOGIC: Alert and oriented x3. She uses a walker for a steady gait. IMPRESSION: Malignant neoplasm of the rectum. PLAN: AA admission to Dr. Concepcion's service on 05/23/19, for reversal of ileostomy; the patient will take a bowel cleansing prep on the day before surgery consisting of clear liquids and Colyte laxative. NEFTALI GARCIA, REGIONAL EDUCATION COORDINATOR [id number]/CPS #: [id number] ELIANA
[~2019-05-23 07:30] MED LIST: Buffered Lidocaine 1% SYRIN* 1 ML/SYRINGE INTRADERM ONE; ERTApenem(*) 1 GM in NS 0.9% 50 ML* 50 ML IVPB SCH; Famotidine IV* 10 MG/ML 2 ML (20 mg) IV ONE; Lactated Ringers 1000 ML Bag* 1,000 ML IV SCH
[2019-05-23] MEDS ORDERED: Famotidine IV* 10 MG/ML 2 ML (20 mg) ONE (13:14)
[2019-05-23] MEDS ORDERED: Heparin VIAL(*) 5000 UNITS/ML VIAL (FIVE THOUSAND) ONE (13:15)
--- OUTSIDE RECORDS SUMMARY | 2019-05-23 13:24 | XMS REPORT | Continuity of Care Document ---
:1930 External Reference #:[id number] Author Name Cornel Concepcion MD, FACS (transmitted by agent of provider Karo Jiang) Address [address] [place] [address] Care Team Providers Name Role Phone Claudette Wright MD - Family Care Team Information Route Sales Person [phone] Medicine Problems Description No Information Available Social History Type Date Description Comments Sex Unknown ETOH Use Currently consumes alcohol Tobacco Use Start: Unknown Patient has never smoked Smoking Status Reviewed: 03/28/19 Patient has never smoked Exercise Type/Frequency Exercises regularly Allergies, Adverse Reactions, Alerts Active Allergies Reaction Severity Comments Date Doxycycline 11/29/2018 Medications Active Medications SIG Qnty Indications Ordering Provider Date Losartan Unknown Potassium/Hydrochlorothiazide 100-25mg Tablets Atorvastatin Calcium Unknown 20mg Tablets Multivitamin Adult Unknown Krill Oil Unknown Vitamin D3 Unknown Immunizations Description No Information Available Vital Signs Date Vital Result Comment 03/28/2019 9:19am Height 63 inches 5'3" Weight 120.00 lb Heart Rate 84 /min BP Systolic 122 mmHg BP Diastolic 68 mmHg Respiratory Rate 16 /min Body Temperature 98.7 F BMI (Body Mass Index) 21.3 kg/m2 Results Description No Information Available Procedures Description No Information Available Medical Devices Description No Information Available Encounters Type Date Location Provider Dx Diagnosis Office Visit 11/29/2018 [facility] Shakeel Mtz, S92.344A Nondisp fx of 8:00a at [facility]. 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 metatarsal bone, right foot, Plan of Treatment 03/28/2019 - Cornel Concepcion MD, FACSC20 Malignant neoplasm of rectumReferral: Gabriel Dumont M.D., Hematology & OncologyFollow up:operating roomM62.81 Muscle weakness (generalized) Functional Status Description No Information Available Mental Status Description No Information Available Referrals Refer to Reason for Referral Status Appt Date Gabriel Dumont M.D. Created [address] [place], [place] [id number] [phone]
--- OUTSIDE RECORDS SUMMARY | 2019-05-23 13:24 | XMS REPORT | Continuity of Care Document ---
:1930 External Reference #:[id number] Author Name Lorena Paul NP (transmitted by agent of provider Michael Zepeda) Address [address] [facility] [place] [address] Care Team Providers Name Role Phone Claudette Wright MD - Family Care Team Information Reinsurance Analyst [phone] Medicine Problems Description No Information Available Social History Type Date Description Comments Sex Unknown ETOH Use Currently consumes alcohol Tobacco Use Start: Unknown Patient has never smoked Smoking Status Reviewed: 04/28/19 Patient has never smoked Exercise Type/Frequency Exercises regularly Allergies, Adverse Reactions, Alerts Active Allergies Reaction Severity Comments Date Doxycycline 11/29/2018 Medications Active Medications SIG Qnty Indications Ordering Provider Date Colyte With Flavor take as directed 4000ml Lorena Ledesma 04/28/2019 Packs on the day before DIANNE Paul 240gm Solution surgery;Drink Rec Half Of The Diluted Mixture Losartan Unknown Potassium/Hydrochloro thiazide 100-25mg Tablets Atorvastatin Calcium Unknown 20mg Tablets Multivitamin Adult Unknown Krill Oil Unknown Vitamin D3 Unknown Immunizations Description No Information Available Vital Signs Date Vital Result Comment 04/28/2019 9:28am Height 63 inches 5'3" Weight 114.00 lb Heart Rate 72 /min BP Systolic 120 mmHg BP Diastolic 66 mmHg Respiratory Rate 16 /min Body Temperature 98.0 F BMI (Body Mass Index) 20.2 kg/m2 03/28/2019 9:19am Height 63 inches 5'3" Weight 120.00 lb Heart Rate 84 /min BP Systolic 122 mmHg BP Diastolic 68 mmHg Respiratory Rate 16 /min Body Temperature 98.7 F BMI (Body Mass Index) 21.3 kg/m2 Results Description No Information Available Procedures Description No Information Available Medical Devices Description No Information Available Encounters Type Date Location Provider Dx Diagnosis Office Visit 03/24/2019 [facility] Jacob Verduzco, K56.601 Complete 9:34a Assoc,pc [place] intestinal Hospitalists obstruction, unspecified as to cause Z93.2 Ileostomy status R53.1 Weakness R11.0 Nausea Office Visit 03/23/2019 9:33a [facility] Jacob Verduzco, R53.1 Weakness Assoc,pc Hospitalists [place] Z93.2 Ileostomy status I10 Essential (primary) hypertension E78.5 Hyperlipidemia, unspecified [facility] R53.1 Weakness Assoc,pc [place] Hospitalists Z93.2 Ileostomy status R11.0 Nausea I10 Essential (primary) hypertension Office Visit 03/[facility], R53.1 Weakness Assoc,pc [place] Hospitalists Z93.2 Ileostomy status I10 Essential (primary) hypertension E78.5 Hyperlipidemia, unspecified Office Visit 03/20/2019 [facility] K56.601 Complete 9:32a Assoc,pc [place], [place] intestinal Hospitalists obstruction, unspecified as to cause Z93.2 Ileostomy status R53.1 Weakness I10 Essential (primary) hypertension E78.5 Hyperlipidemia, unspecified Office Visit 03/19/2019 [facility] K56.601 Complete 9:31a Assoc,pc [place], [place] intestinal Hospitalists obstruction, unspecified as to cause R06.02 Shortness of breath I10 Essential (primary) hypertension E78.5 Hyperlipidemia, unspecified Office Visit 03/18/2019 [facility] K56.601 Complete 9:31a Assoc,pc [place], [place] intestinal Hospitalists obstruction, unspecified as to cause I10 Essential (primary) hypertension E78.5 Hyperlipidemia, unspecified Office Visit 03/17/2019 [facility] K56.601 Complete 9:29a Assoc,pc [place], [place] intestinal Hospitalists obstruction, unspecified as to cause I10 Essential (primary) hypertension E78.5 Hyperlipidemia, unspecified Office Visit 03/16/2019 [facility] K56.601 Complete 9:29a Assoc,pc [place], [place] intestinal Hospitalists obstruction, unspecified as to cause I10 Essential (primary) hypertension E78.5 Hyperlipidemia, unspecified Office Visit 03/15/2019 9:28a [place] Sobeida Iqra R10.9 Unspecified Assoc,zahra Agarwal, abdominal pain Hospitalists WORKERS COMPENSATION COORDINATOR R11.0 Nausea E87.6 Hypokalemia D47.3 Essential (hemorrhagic) thrombocythemia Office Visit 11/29/2018 8:00a Karla Beckford S92.344A Nondisp fx of Orthopedics at [facility] fourth [place] metatarsal bone, right foot, init Assessments Date Code Description Provider 04/28/2019 C20 Malignant neoplasm of rectum Lorena Paul, DIANNE 04/28/2019 Z01.818 Encounter for other preprocedural Lorena Paul NP examination 04/20/2019 C20 Malignant neoplasm of rectum Cornel Concepcion MD, FACS 04/20/2019 M62.81 Muscle weakness (generalized) Cornel Concepcion MD, FACS 03/28/2019 C20 Malignant neoplasm of rectum Cornel Concepcion MD, FACS 03/28/2019 M62.81 Muscle weakness (generalized) Cornel Concepcion MD, FACS 03/24/2019 K56.601 Complete intestinal obstruction, TAMMY Sanchez unspecified as to cause 03/24/2019 C19 Malignant neoplasm of rectosigmoid Shakeel Degroot PA-C junction 03/24/2019 Z93.2 Ileostomy status TAMMY Sanchez 03/24/2019 K56.699 Other intestinal obstruction Shakeel Degroot PA-C unspecified as to partial versus complete obstruction 03/24/2019 R53.1 Weakness TAMMY Sanchez 03/24/2019 R11.0 Nausea TAMMY Sanchez 03/23/2019 R53.1 Weakness TAMMY Sanchez 03/23/2019 Z93.2 Ileostomy status TAMMY Sanchez 03/23/2019 I10 Essential (primary) hypertension TAMMY Sanchez 03/23/2019 E78.5 Hyperlipidemia, unspecified TAMMY Sanchez 03/22/2019 R53.1 Weakness TAMMY Garzon 03/22/2019 C19 Malignant neoplasm of rectosigmoid Shakeel Degroot PA-C junction 03/22/2019 Z93.2 Ileostomy status TAMMY Garzon 03/22/2019 K56.699 Other intestinal obstruction Shakeel Degroot PA-C unspecified as to partial versus complete obstruction 03/22/2019 R11.0 Nausea Renetta Herrera PA 03/22/2019 I10 Essential (primary) hypertension Renetta Herrera PA 03/21/2019 R53.1 Weakness TAMMY Garzon 03/21/2019 Z93.2 Ileostomy status TAMMY Garzon 03/21/2019 I10 Essential (primary) hypertension Renetta Herrera PA 03/21/2019 E78.5 Hyperlipidemia, unspecified TAMMY Garzon 03/20/2019 K56.601 Complete intestinal obstruction, TAMMY Garzon unspecified as to cause 03/20/2019 Z93.2 Ileostomy status TAMMY Garzon 03/20/2019 R53.1 Weakness TAMMY Garzon 03/20/2019 I10 Essential (primary) hypertension Renetta Herrera PA 03/20/2019 E78.5 Hyperlipidemia, unspecified Renetta Herrera PA 03/19/2019 K56.601 Complete intestinal obstruction, TAMMY Garzon unspecified as to cause 03/19/2019 R06.02 Shortness of breath TAMMY Garzon 03/19/2019 I10 Essential (primary) hypertension Renetta Herrera PA 03/19/2019 E78.5 Hyperlipidemia, unspecified Renetta Herrera PA 03/18/2019 K56.601 Complete intestinal obstruction, TAMMY Sanchez unspecified as to cause 03/18/2019 I10 Essential (primary) hypertension TAMMY Sanchez 03/18/2019 E78.5 Hyperlipidemia, unspecified TAMMY Sanchez 03/17/2019 K56.601 Complete intestinal obstruction, TAMMY Sanchez unspecified as to cause 03/17/2019 I10 Essential (primary) hypertension TAMMY Sanchez 03/17/2019 E78.5 Hyperlipidemia, unspecified TAMMY Sanchez 03/16/2019 K56.601 Complete intestinal obstruction, TAMMY Sanchez unspecified as to cause 03/16/2019 I10 Essential (primary) hypertension TAMMY Sanchez 03/16/2019 E78.5 Hyperlipidemia, unspecified TAMMY Sanchez 03/15/2019 R10.9 Unspecified abdominal pain Iqra Agarwal, DIANNE 03/15/2019 R11.0 Nausea Iqra Agarwal NP 03/15/2019 E87.6 Hypokalemia Iqra Agarwal NP 03/15/2019 D47.3 Essential (hemorrhagic) Iqra Agarwal NP thrombocythemia 11/29/2018 S92.344A Nondisplaced fracture of fourth Shakeel Mtz M.D. metatarsal bone, right foot, Plan of Treatment Future Appointment(s):05/23/2019 9:30 am - Cornel Concepcion MD, FACS at [facility]05/31/2019 9:30 am - Lorena Paul NP at [facility]04/28/2019 - Lorena Paul, NPC20 Malignant neoplasm of rectumFollow up:AFTER DISCHARGE FROM [facility].818 Encounter for other preprocedural examination Functional Status Description No Information Available Mental Status Description No Information Available Referrals Refer to Reason for Referral Status Appt Date Gabriel Dumont M.D. Closed 04/21/[address] [place] [address] [id number] [phone]
[2019-05-23] MEDS ORDERED: Ketorolac INJ* 30 MG/ML 1 ML VIAL ONE (14:49)
[2019-05-23] MEDS ORDERED: Dexamethasone IV* 4 MG/ML 1 ML (4 MG) ONE (14:49)
[2019-05-23] MEDS ORDERED: Ondansetron INJ* 2 MG/ML VIAL ONE ×2 (14:49→18:38)
[2019-05-23] MEDS ORDERED: Lidocaine 2% PF * 5 ML VIAL ONE (14:49)
[2019-05-23] MEDS ORDERED: Propofol* 10 MG/ML 20 ML BTL ONE (14:49)
[2019-05-23] MEDS ORDERED: Midazolam* 1 MG/ML 5 ML VIAL (5 MG) ONE (14:50)
[2019-05-23] MEDS ORDERED: KETAMINE HCL* 50 MG/ML 10 ML VIAL ONE (14:50)
[2019-05-23] MEDS ORDERED: fentaNYL* 50 MCG/ML 2 ML VIAL (100 MCG VIAL) ONE (14:50)
[2019-05-23] MEDS ORDERED: Cisatracurium* 2 MG/ML MDV 5 ML ONE (14:50)
[2019-05-23] MEDS ORDERED: Neostigmine Methylsulfate* 1 MG/ML 10 ML VIAL (1 mg/ml) ONE (16:05)
[2019-05-23] MEDS ORDERED: Naloxone* 0.4 MG/ML 1 ML VIAL IV PRN (17:40)
[2019-05-23] MEDS ORDERED: fentaNYL* 50 MCG/ML 2 ML VIAL (100 MCG VIAL) IV PRN (17:40)
[2019-05-23] MEDS ORDERED: Ondansetron INJ* 2 MG/ML VIAL IV PRN ×2 (17:40→18:29)
[2019-05-23] MEDS ORDERED: Bupivacaine 0.5%* 50 ML MDV VIAL ONE (17:49)
[2019-05-23] MEDS ORDERED: Glycopyrrolate IV* 0.2 MG/ML 1 ML VIAL ONE (17:51)
[2019-05-23] MEDS ORDERED: Bacitracin OINTMENT* 0.5% 0.5 oz TUBE ONE (17:57)
--- NOTE | 2019-05-23 18:28 | OP ---
Operative Report - Blank - Operative Report Date of Operation: 05/23/19 Note: Operative Note Preoperative Dx: Ileostomy Postoperative Dx: Ileostomy Procedure:Reversal of Ileostomy Anesthesia:ISADORA Pop Surgeon: Jamey TOPETE Videotape Recording Engineer: Mikayla DUMONT EBL: <25cc Specimen: ileostomy Fluids:1300cc LR Bates: 500cc Drains:none Findings:
[2019-05-23] MEDS ORDERED: PROCHLORPERAZINE INJ 5 MG/ML 2 ML VIAL ONE (18:48)
[2019-05-23] MEDS ORDERED: HYDROmorphone INJ1* 1 MG/ML SYRINGE ONE (19:09)
[2019-05-23] MEDS: HYDROmorphone INJ1* 1 MG/ML SYRINGE IV PRN ×2 (19:11→19:21)
[2019-05-23] MEDS ORDERED: Acetaminophen IV 1GM/100ML * 100 ML ONE (19:38)
--- NOTE | 2019-05-23 22:33 | CONS ---
HOSPITAL MEDICINE CONSULTATION REPORT: DATE OF CONSULT: 05/23/19 PROVIDER: Thao Morales NP ATTENDING PHYSICIAN WHILE IN THE HOSPITAL: Dr. Concepcion. CONSULTING PHYSICIAN: Dr. Kathy Silva (dictated by Thao Morales NP). REASON FOR CONSULT: Bradycardia. HISTORY OF PRESENT ILLNESS: Ms. Osorio is an 88-year-old female with a past medical history significant for hypertension; hyperlipidemia; adenocarcinoma of the colon, status post bowel resection, who presented to [facility] for an ileostomy reversal with Dr. Concepcion. In the immediate preoperative period, the patient had no complaints. She denies any recent illnesses, fever, chills, nausea, vomiting , chest pain, diarrhea. She denies any gross hematuria, dysuria, focal weakness , sensory loss. She does complain of her left knee buckling which has been chronic since post initial ileostomy surgery. She denies any visual complaints , rashes, lesions, open sores, psychosis, or anxiety. While in PACU, the patient did have an episode of bradycardia with a heart rate of 38. The patient was asymptomatic. She was not dizzy. Her blood pressure remained stable. Due to the bradycardia in PACU, Hospital Medicine was asked to see and evaluate the patient. PAST MEDICAL HISTORY: Significant for: 1. Hypertension. 2. Hyperlipidemia. 3. Adenocarcinoma of the colon, status post bowel resection with ileostomy. PAST SURGICAL HISTORY: Bowel resection with ileostomy, now reversal of ileostomy. HOME MEDICATIONS: None. The patient is not currently taking any medications. ALLERGIES: DOXYCYCLINE. FAMILY HISTORY: Mother with esophageal cancer. Father with diabetes and passed from an [place]. No reported history of diabetes. SOCIAL HISTORY: The patient denies any smoking or illicit drug use. She does report occasional alcohol use. She lives with her daughter. Surrogate decision maker in the event she is unable to make her own decisions is her daughter, Melva Almanzar. She is a full code. REVIEW OF SYSTEMS: A 14-point review of systems was completed. All pertinent positives were mentioned in the HPI. PHYSICAL EXAM: General: At this time, Ms. Osorio is alert and oriented, resting in her hospital bed. She is in no acute distress. Vital Signs: Blood pressure 109/50, heart rate 50, respirations 16, O2 saturation 100%, temperature was 97.9. HEENT: Head is atraumatic, normocephalic. Eyes: EOMs are intact. Sclerae anicteric and not pale. Oral mucosa appeared to be moist. Neck is supple. Lungs are clear to auscultation bilaterally. No wheezes, rales , or rhonchi. Cardiac: S1, S2. Regular rate and rhythm. No murmurs, rubs, or gallops. Abdomen is soft. Bowel sounds are present x4. She does have a dressing that is intact on her mid abdomen. She does have mild associated tenderness to the surgical area. Extremities: She is able to move all 4 extremities. There is no clubbing or cyanosis. Pedal pulses are +2 bilaterally. Neurologic: She is awake, alert, oriented x3. Speech is clear. Thought process is intact. There are no gross focal deficits. Skin: She does have a dressing intact to her mid abdomen. LABORATORY DATA/DIAGNOSTIC STUDIES: CBC from 05/16/19, WBCs are 6.8, RBCs 2.95 , hemoglobin 12.0, hematocrit was 35, platelet count was 410. Sodium 142, potassium 4.4, chloride 108, carbon dioxide was 28. Anion gap 6, BUN was 24, creatinine 0.81. Calcium was 9.7. ASTs were 20, ALTs were 12, alkaline phosphatase was 42. IMPRESSION AND PLAN: Ms. Osorio is an 88-year-old female with past medical history significant for hypertension and hyperlipidemia, adenocarcinoma of the colon, status post resection, who had an episode of bradycardia postoperatively. Our recommendations are as follows: 1. Status post ileostomy reversal. Pain management per Surgery. 2. Bradycardia. The patient did have an episode of bradycardia in the PACU. Her bradycardia has resolved. She is currently sinus rhythm in the 60s. She was asymptomatic during this episode. I suspect this is related to the effects of anesthesia. The patient will be monitored on telemetry overnight. I have ordered an EKG that is currently pending. The patient is currently without dizziness or any nausea, shortness of breath. We will continue to monitor her. 3. Hypertension, hyperlipidemia. The patient currently reports she has stopped taking her medications 2 weeks ago. She is not currently taking any medications at this time. 4. FEN. She is n.p.o. 5. DVT prophylaxis: As per Surgery. 6. Code status: She is a full code. TIME SPENT: Time spent on this consultation was 45 minutes, greater than half that time was spent at the bedside reviewing events leading thus far to her hospitalization, performing physical exam, and reviewing my plan of care. I have discussed with my attending, Dr. Kathy Silva; she is in agreement with my plan. THAO MORALES, BENEFITS SPECIALIST RECRUITER [id number]/[facility] #: [id number] ELIANA
[2019-05-23] MEDS: Lactated Ringers 1000 ML Bag* 1,000 ML IV SCH (23:07)
[2019-05-23] MEDS: Heparin VIAL(*) 5000 UNITS/ML VIAL (FIVE THOUSAND) SUBCUT SCH (23:13)
[2019-05-24] MEDS: Heparin VIAL(*) 5000 UNITS/ML VIAL (FIVE THOUSAND) SUBCUT SCH ×3 (06:36→21:48)
[2019-05-24 06:50] LABS: BUN/Creatinine Ratio 32.1 (8-20); Calcium 8.7 mg/dL (8.6-10.3); EGFR African American 81.1 (>60); Potassium 4.4 mmol/L (3.5-5.0)
[2019-05-24 08:06] LABS: ABS Lymphocytes 0.7 10^3/ul (1.0-4.8); ABS Monocytes 0.9 10^3/ul (0-0.8); Hematocrit 30 % (35-47); Hemoglobin 10.1 g/dL (12.0-16.0); Lymphocyte % 6.4 %; Mean Corpuscular HGB Conc 34 g/dL (31-36); Mean Corpuscular Hemoglobin 31 pg (27-31); Mean Corpuscular Volume 90 fL (80-97); Mean Platelet Volume 7.5 fL (7.4-10.4); Platelet Count 306 10^3/uL (150-450); Red Blood Count 3.32 10^6 /uL (3.70-4.87); Red Cell Distribution Width 16 % (10-15); White Blood Count 10.6 10^3/uL (3.5-10.8)
[2019-05-24] MEDS: HYDROmorphone INJ* 0.5 MG/0.5 ML SYRINGE IV SLOW PU PRN ×2 (12:54→19:14)
--- NOTE | 2019-05-24 17:34 | PN ---
Subjective Date of Service: 05/24/19 Interval History: HOSPITALIST PROGRESS NOTE Patient seen and examined at bedside. Care reviewed and d/w Josue Parrish RN. She feels well today. [place] a little lightheaded when sitting up, but this has resolved. Pain is well controlled. Family History: Unchanged from Admission Social History: Unchanged from Admission Past Medical History: Unchanged from Admission Objective Active Medications: Heparin Sodium (Porcine) (Heparin Vial(*)) 5,000 units SUBCUT Q8HR [facility] Last Admin: 05/24/19 15:05 Dose: 5,000 units Hydromorphone HCl (Dilaudid Inj*) 0.5 mg IV SLOW PU Q1H PRN PRN Reason: PAIN - SEVERE Last Admin: 05/24/19 12:54 Dose: 0.5 mg Lactated Ringer's (Lactated Ringers 1000 Ml Bag*) 1,000 mls @ 85 mls/hr IV PER RATE [facility] Last Admin: 05/23/19 23:07 Dose: 85 mls/hr Ondansetron HCl (Zofran Inj*) 4 mg IV Q4H PRN PRN Reason: NAUSEA/VOMITING Vital Signs - 8 hr 05/24/19 05/24/19 05/24/19 11:35 12:54 15:06 Temperature 97.7 F Pulse Rate 63 Respiratory 17 18 18 Rate Blood Pressure 98/42 (mmHg) O2 Sat by Pulse 99 Oximetry 05/24/19 16:03 Temperature 97.5 F Pulse Rate 62 Respiratory 16 Rate Blood Pressure 104/45 (mmHg) O2 Sat by Pulse 99 Oximetry Oxygen Devices in Use Now: Nasal Cannula Appearance: Pleasant elderly lady sitting up in bed in NAD Eyes: No Scleral Icterus Ears/Nose/Mouth/Throat: Mucous Membranes Moist Neck: Trachea Midline Respiratory: Symmetrical Chest Expansion and Respiratory Effort, Clear to Auscultation Cardiovascular: NL Sounds; No Murmurs; No JVD, RRR Neurological: Alert and Oriented x 3, NL Muscle Strength and Tone Result Diagrams: 05/24/19 08:01 05/24/19 06:17 Assess/Plan/Problems-Billing Assessment: Mrs Osorio is an 88yo F with PMH of HTN, HLD, Adenocarcinoma of the colon s/p partial colectomy and ileostomy, admitted for elective ileostomy reversal. Hospitalist service consulted for post op bradycardia. - Patient Problems (1) Bradycardia Comment: - Asymptomatic. - EKG showed only sinus bradycardia with no signs of heart block. - Not on any negative inotropic agents. - Suspect increased vagal tone due to surgery. - Her baseline HR appears to be in the mid 60s. - D/c Telemetry. (2) Status post reversal of ileostomy Comment: - Management as per surgery. Status and Disposition: Hospitalist service will continue to follow with you.
--- NOTE | 2019-05-24 17:54 | PN ---
Progress Note - Progress Note Date of Service: 05/24/19 SOAP: Subjective: Pt seen and examined. Feeling thirsty, no nausea, bloated Objective: [] Temp Pulse Resp BP Pulse Ox 97.5 F 62 16 104/45 99 05/24/19 16:03 05/24/19 16:03 05/24/19 16:03 05/24/19 16:03 05/24/19 16:03 a and o x3, nad abdo: soft/ distended, incisional tenderness dressing saturated; changed ext wnl Assessment: POD 1 reversal ileostomy Plan: ice chips OOB labs in am
--- NOTE | 2019-05-24 21:51 | OP ---
CC: Primary Care Doctor, Claudette Wright MD * DATE OF OPERATION: 05/23/19 - ROOM #339 DATE OF : 34 SURGEON: Cornel Concepcion MD PILOT PLANT OPERATOR: TAMMY South ANESTHESIOLOGIST: Dr. Pop. ANESTHESIA: General anesthesia. PRE-OP DIAGNOSIS: Ileostomy following resection of colon cancer. POST-OP DIAGNOSIS: Ileostomy following resection of colon cancer. OPERATIVE PROCEDURE: Reversal of ileostomy. ESTIMATED BLOOD LOSS: Minimal. FLUIDS: 1300 cc of crystalloid fluid given. SPECIMEN: Ileostomy. DRAINS: Bates catheter with 500 cc output, no other drains. COMPLICATIONS: None. DESCRIPTION OF PROCEDURE: The patient was identified in the preoperative area. She was marked, discussed with her and her daughter, and consent signed. She was taken to the operating room, placed on the operating table in supine position. Preoperative antibiotics were given. Sequential devices placed in bilateral lower extremities. General anesthesia was induced. A Bates catheter inserted and the patient's ileostomy was sutured close with silk suture and the abdomen was prepped and draped with Betadine. The patient was draped and a time -out was performed. Sharp dissection was carried out around the stoma and extending this down towards the anterior fascia, mostly sharp but with some cautery. The dissection was carried out right into the abdomen. Once we were in the abdomen , we released the attachments and we were able to bring the loop ileum up and out of the abdomen. Next, sharp lysis was carried out so we could open up the efferent and afferent limbs and see the arcades. Points were chosen for where the anastomosis would occur and the mesentery to the portion that would be resected was then taken between Rosario clamps with 2-0 Vicryl suture. Once we had 2 fresh portions of small bowel up, we made enterotomies, made 2, with 80 mm PRIYANK stapling device and utilized the TA to close the defect and resect the portion of the small bowel. This was a TA-90 blue load. This was then passed off as specimen. We then oversewed the suture line with 3-0 silk sutures. There was no mesenteric defect to close. Next, we dumped the small bowel back into the abdomen and closed the defect with interrupted #1 Vicryl sutures. Wound was irrigated and reapproximated with skin linda with the exception of the small portions in the middle that we placed 1/2 inch plain packing in. Sterile dressing was applied. The patient tolerated the procedure well, was awoken up in the OR, and transferred to the PACU in stable condition. [id number]/[facility] #: [id number] MTDD
[2019-05-25] MEDS: Lactated Ringers 1000 ML Bag* 1,000 ML IV SCH ×2 (01:19→13:50)
[2019-05-25] MEDS: Heparin VIAL(*) 5000 UNITS/ML VIAL (FIVE THOUSAND) SUBCUT SCH ×2 (05:33→13:55)
[2019-05-25 06:16] LABS: ABS Lymphocytes 0.7 10^3/ul (1.0-4.8); ABS Monocytes 0.9 10^3/ul (0-0.8); Eosinophil % 0.6 %; Hematocrit 28 % (35-47); Hemoglobin 9.6 g/dL (12.0-16.0); Lymphocyte % 8.6 %; Mean Corpuscular HGB Conc 34 g/dL (31-36); Mean Corpuscular Hemoglobin 30 pg (27-31); Mean Corpuscular Volume 89 fL (80-97); Mean Platelet Volume 7.8 fL (7.4-10.4); Platelet Count 291 10^3/uL (150-450); Red Blood Count 3.17 10^6 /uL (3.70-4.87); Red Cell Distribution Width 17 % (10-15); White Blood Count 8.7 10^3/uL (3.5-10.8)
[2019-05-25 06:32] LABS: BUN/Creatinine Ratio 31.7 (8-20); Calcium 7.9 mg/dL (8.6-10.3); EGFR African American 108.4 (>60); EGFR Non-African American 89.6 (>60); Magnesium 1.6 mg/dL (1.9-2.7); Phosphorus 2.7 mg/dL (2.5-5.0); Potassium 3.6 mmol/L (3.5-5.0)
--- NOTE | 2019-05-25 07:32 | PN ---
Subjective Date of Service: 05/25/19 Interval History: HOSPITALIST PROGRESS NOTE Patient seen and examined at bedside. Care reviewed and d/w Josue Parrish RN. She offers no complaints today. Denies abdominal pain, N/V. No flatus yet. Ambulated around unit with no dizziness, lightheadedness. Family History: Unchanged from Admission Social History: Unchanged from Admission Past Medical History: Unchanged from Admission Objective Active Medications: Heparin Sodium (Porcine) (Heparin Vial(*)) 5,000 units SUBCUT Q8HR [facility] Last Admin: 05/25/19 05:33 Dose: 5,000 units Hydrochlorothiazide (Hydrodiuril Tab*) 25 mg PO QAM [facility] Hydromorphone HCl (Dilaudid Inj*) 0.5 mg IV SLOW PU Q1H PRN PRN Reason: PAIN - SEVERE Last Admin: 05/24/19 19:14 Dose: 0.5 mg Lactated Ringer's (Lactated Ringers 1000 Ml Bag*) 1,000 mls @ 85 mls/hr IV PER RATE [facility] Last Admin: 05/25/19 01:19 Dose: 85 mls/hr Losartan Potassium (Cozaar Tab*) 100 mg PO QAM [facility] Ondansetron HCl (Zofran Inj*) 4 mg IV Q4H PRN PRN Reason: NAUSEA/VOMITING Vital Signs - 8 hr 05/25/19 05/25/19 03:22 03:42 Temperature 98.6 F Pulse Rate 67 Respiratory 17 19 Rate Blood Pressure 118/50 (mmHg) O2 Sat by Pulse 95 Oximetry Oxygen Devices in Use Now: None Appearance: Pleasant elderly lady lying in bed in NAD Eyes: No Scleral Icterus Ears/Nose/Mouth/Throat: Mucous Membranes Moist Neck: Trachea Midline Respiratory: Symmetrical Chest Expansion and Respiratory Effort, Clear to Auscultation Cardiovascular: RRR - Normal S1 and S2 Neurological: Alert and Oriented x 3, NL Muscle Strength and Tone Result Diagrams: 05/25/19 05:53 05/25/19 05:53 Assess/Plan/Problems-Billing Assessment: Mrs Osorio is an 88yo F with PMH of HTN, HLD, Adenocarcinoma of the colon s/p partial colectomy and ileostomy, admitted for elective ileostomy reversal. Hospitalist service consulted for post op bradycardia. - Patient Problems (1) Bradycardia Comment: - Asymptomatic. - EKG showed only sinus bradycardia with no signs of heart block. - Not on any negative inotropic agents. - Suspect increased vagal tone due to surgery. - HR back to baseline in the mid 60s. (2) Status post reversal of ileostomy Comment: - Management as per surgery. Status and Disposition: Hospitalist service will sign off. Thank you for allowing us to assist on your patient's care. Please don't hesitate to call us with any questions or concerns.
[2019-05-25] MEDS ORDERED: Losartan/HCTZ 100/25 (NF) TAB PO SCH (09:00)
[2019-05-25] MEDS: Hydrochlorothiazide TAB* 25 MG PO SCH (10:04)
[2019-05-25] MEDS: Losartan TAB* 25 MG PO SCH (10:05)
[2019-05-25] MEDS ORDERED: Acetaminophen TAB* 325 MG PO PRN (10:50)
[2019-05-25] MEDS ORDERED: oxyCODONE/Acetamin 5/325 MG* TAB PO PRN (10:55)
--- NOTE | 2019-05-25 15:09 | PN ---
Progress Note - Progress Note Date of Service: 05/25/19 SOAP: Subjective: NAD comfortable in chair tolerating Clears - flatus [] Objective: Vital Signs Temp 98.0 F 05/25/19 11:17 Pulse 64 05/25/19 11:17 Resp 18 05/25/19 13:57 BP 110/44 05/25/19 11:17 Pulse Ox 94 05/25/19 11:17 Intake & Output 05/24/19 05/25/19 05/25/19 18:59 06:59 18:59 Intake Total 1140 3450 840 Output Total 100 250 200 Balance 1040 3200 640 Intake: IV Fluids 990 1970 LR 990 1970 Oral 0 1480 840 Bates Irrigate Amount 150 Output: Urine 250 200 Bates 100 0 Other: # Bowel Movements 0 PEX: Chest: CTA B/L CVS: RRR ABD: surgical wound with some surrounding errythema linda and packing in place dressing saturated serous fluid no gross bleeding or odor Ext: calves soft, non tender decreased ROM LLE [] Assessment: 88 yo female POD 2 S/P ileostomy reversal. - flatus [] Plan: packing was changed after 0.5 mg dilaudid was given will change incision packing again per Dr Concepcion, new dressing placed advance diet with return of bowel function. PO Analgesia PRN []
[2019-05-25] MEDS: HYDROmorphone INJ* 0.5 MG/0.5 ML SYRINGE IV SLOW PU PRN (15:59)
[2019-05-26] MEDS: Heparin VIAL(*) 5000 UNITS/ML VIAL (FIVE THOUSAND) SUBCUT SCH ×2 (00:22→05:29)
[2019-05-26] MEDS: Lactated Ringers 1000 ML Bag* 1,000 ML IV SCH (02:23)
[2019-05-26] MEDS: Losartan TAB* 25 MG PO SCH (08:26)
[2019-05-26] MEDS: Hydrochlorothiazide TAB* 25 MG PO SCH (08:26)
[2019-05-26 11:22] VITALS: BP 133/64
--- NOTE | 2019-05-26 13:33 | PN ---
Progress Note - Progress Note Date of Service: 05/26/19 SOAP: Subjective: Pt seen and examined. Doing well. Wants to go home. flatus, Bm Objective: ] Temp Pulse Resp BP Pulse Ox 98.0 F 67 16 133/64 100 05/26/19 11:22 05/26/19 11:22 05/26/19 11:22 05/26/19 11:22 05/26/19 11:22 a and o x3, and lungs clear abdo: soft/ ND/ NT packing changed- serous output ext wnl Assessment: POD 3 ileostomy reversal Plan: d/c home packing change at home f/u in office
--- NOTE | 2019-05-26 17:40 | DS ---
CC: [facility]; Dr. Gabriel Dumont; Dr. Juan Gloria DISCHARGE SUMMARY: DATE OF ADMISSION: DATE OF DISCHARGE: 05/26/19 HOSPITAL COURSE: Ms. Osorio is an 88-year-old female who presented on same day of surgery to under go an ileostomy reversal. The patient was seen in the preoperative area, consent was signed, she was marked, brought to the ope rating room and underwent the above procedure. Please see operative report for details. On postoperative course, the patient was transferred to the PACU and on to the short-stay surgical un it. The patient still requires a four-point walker. She has not seen Neurology yet, but it would be nice for the patient to follow up in the coming weeks to months and this referral will be made at the isabella dumont's followup visit with me. Her postoperative course otherwise is uneventful. She was started on ice chips and on to a clear t on postoperative day 1. She started passing flatus on postoperative day 2 and by postoperative day 3, plan was for discharge home. The patient underwent 2 packing changes at the former ileostomy sit e and teaching was performed with the patient's daughter on packing change to be performed on Wednesday and Wednesday by the patient's daughter. The patient will follow up in my office on . She wan ts to wait to call for an appointment when she noticed what her family's timeline is. She has my brett ne number to call me with any questions. No antibiotics needed. She will go back on her preoperativ e medications and she will advance her diet slowly at home for plan solid diet by Wednesday. The patien t discharged home in stable condition. [id number]/[facility] #: [id number]
[2019-05-27] MEDS ORDERED: Atorvastatin* 20 MG TAB PO SCH (09:00)
== END 2019-05-26 15:55 | disposition home or self-care (01) | DRG 330 ==
LOC: AA 13:19 → SSU 21:32
PROVIDERS: ADMIT Surgery; ATTEND Surgery
PROC: 0DBB0ZZ Excision of Ileum, Open Approach (ICD-10-PCS; principal; 2019-05-23 15:00)
DX: Z43.2 Encounter for attention to ileostomy (principal); C19 Malignant neoplasm of rectosigmoid junction; C77.2 Secondary and unspecified malignant neoplasm of intra-abdominal lymph nodes; I97.191 Other postprocedural cardiac functional disturbances following other surgery; I10 Essential (primary) hypertension; E78.5 Hyperlipidemia, unspecified; Z79.899 Other long term (current) drug therapy; Z88.8 Allergy status to other drugs, medicaments and biological substances; Z80.0 Family history of malignant neoplasm of digestive organs; Z81.2 Family history of tobacco abuse and dependence; Z83.3 Family history of diabetes mellitus; Z82.49 Family history of ischemic heart disease and other diseases of the circulatory system
CPT/HCPCS: 36415; 80048; 83735; 84100; 85025; 88304; 93005; A9270-GY; G8978-GP-CK; G8979-GP-CI; J0780; J1100; J1170; J1335; J1644; J1885; J2250; J2405; J2704; J2710; J3010; J3490